=== PATIENT | male | born 1940 | race Hispanic/Latino ===

== ENCOUNTER 2019-07-04 12:27 | Inpatient (IN) | payer MEDICARE ==
[~2019-07-04] VITALS: Ht 172.7 cm; Wt 62.2 kg
[2019-07-04] MEDS ORDERED: SODIUM CHLORIDE 0.9% 1000ML 1,000 ML IV STA (12:29)
--- OUTSIDE RECORDS SUMMARY | 2019-07-04 12:29 | XMS REPORT | Clinical Summary ---
Author Author [facility] Organization [facility] Address Unknown Phone Unavailable Care Team Providers Care Telescope Repairer Name Role Phone Venkatesh Chery MD PCP Allergies Comments Active Allergy Reactions Severity Noted Date Latex tape Latex, Natural Rubber Rash Low 04/01/2017 Medications End Date Status Medication Sig Dispensed Refills Start Date Active ascorbic acid, vitamin C, Take 1,000 mg 0 (vitamin C) 1000 MG by mouth tablet daily. Active zbyajlf-recqzqwtkvktc-ryr Take 1 tablet 0 feine (EXCEDRIN MIGRAINE) by mouth 250-250-65 mg per tablet every 6 (six) hours as needed for headaches. Active clonAZEPAM (KlonoPIN) 0.5 Take 0.5 mg 0 MG tablet by mouth 2 (two) times a day. Active CRANBERRY FRUIT EXTRACT Take by mouth 0 (CRANBERRY CONCENTRATE daily. ORAL) Active digestive enzymes tablet Take 2 0 tablets by mouth 2 (two) times a day with meals. Active gabapentin (NEURONTIN) Take 600 mg 0 600 mg tablet by mouth 2 (two) times a day. Active traMADol (ULTRAM) 50 mg Take 50 mg by 0 tablet mouth. 9 Active Problems Not on file Encounters Care Team Description Date Type Specialty Konstantin Argueta MD 03/03/2019 Hospital Radiology Encounter Konstantin Argueta MD Hiatal hernia without gangrene and obstruction (Primary Dx) 03/03/2019 Office Visit Cardiothoracic Surgery Adelaide Flynn MD 02/17/2019 Orders Only Cardiothoracic Surgery Amy Webb MA 08/17/2018 Telephone Cardiothoracic Surgery Christina Wu MA 08/16/2018 Telephone Cardiothoracic Surgery Lesley Zapien MA 08/12/2018 Telephone Cardiothoracic Surgery Konstantin Argueta MD Hiatal hernia without gangrene and obstruction (Primary Dx) 08/05/2018 Office Visit Cardiothoracic Surgery Konstantin Argueta MD Hiatal hernia 08/05/2018 Hospital Radiology Encounter Christina WuGHISLAINE 07/23/2018 Telephone Cardiothoracic Surgery after 07/03/2018 Social History Date Tobacco Use Types Packs/Day Years Used Quit: 1979 Former Smoker Cigarettes 0.2 15 Smokeless Tobacco: Never Used Drinks/Week oz/Week Comments Alcohol Use No Sex Assigned at Date Recorded Not on file Industry Job Start Date Occupation Not on file Not on file Not on file Travel End Travel History Travel Start No recent travel history available. Last Filed Vital Signs Reading Time Taken Comments Vital Sign 116/63 03/03/2019 2:17 PM CDT Blood Pressure 91 03/03/2019 2:17 PM CDT Pulse 36.6 C (97.8 F) 03/03/2019 2:17 PM CDT Temperature 17 03/03/2019 2:17 PM CDT Respiratory Rate 97% 03/03/2019 2:17 PM CDT Oxygen Saturation - - Inhaled Oxygen Concentration - - Weight 172.7 cm (5' 8") 03/03/2019 2:17 PM CDT Height - - Body Mass Index Plan of Treatment Health Maintenance Due Date Last Done Comments SHINGLES VACCINES (#1) 1990 65+ PNEUMOCOCCAL VACCINE 2005 (1 of 2 - PCV13) INFLUENZA VACCINE 06/09/2019 Implants Device Identifier Shelf Expiration Date Model / Serial / Lot Implanted Type Area Manufactur er 09/17/2017 [id number] / / [id number] Implant Injctbl Radiesse Voicegel Surgical Left: N/A GIAN 1cc - [id number] Implants; AESTHETICS Implanted: Qty: 1 on 04/15/2017 by [employer]and[employer]; Ben Salazar MD at [facility] Extenders; Surgical Wires 11/15/2019 [id number] / / [id number] Implant Injctbl Radiesse Voicegel Surgical Right: Vocal GIAN 1cc - [id number] Implants; Cord AESTHETICS Implanted: 03/03/2018 at [facility] [employer]; (Quantity not on file) Extenders; Surgical Wires Procedures Comments Procedure Name Priority Date/Time Associated Diagnosis CT CHEST EXTERNAL STUDY Routine 02/16/2019 12:50 PM CDT NM MYOCARDIAL PERFUSION Routine 01/25/2019 FL ESOPHAGRAM COMPLETE Routine 08/05/2018 Hiatal hernia 3:06 PM CDT after 07/03/2018 Results * CT Chest External Study (02/16/2019 12:50 PM CDT) Specimen Narrative Performed At This exam was not acquired at a [facility] facility and has not been [facility] interpreted by a [facility] Provider.The exam was imported into our imaging system for comparisons purposes. Performing Organization Address City/[facility] Phone Number [facility] [address] [place] [address] * Nm myocardial perfusion (01/25/2019) Narrative Performed At * FL Esophagram Complete (08/05/2018 3:06 PM CDT) Specimen Narrative Performed At EXAMINATION:FL ESOPHAGRAM COMPLETE [facility] CLINICAL HISTORY:K44.9 Diaphragmatic hernia without obstruction or gangrene, hiatal hernia COMPARISON:None. Fluoroscopy time: 0.5 minutes. 8 spot images acquired. FINDINGS: The patient swallowed barium without difficulty. Esophagus appears mildly dilated with diminished peristalsis. No stricture. There is a large sliding hiatal hernia. Greater than 50% the stomach is above the diaphragmatic hiatus. IMPRESSION: Large sliding hiatal hernia. Presbyesophagus. [facility]-[id number] Procedure Note [facility], Radiology Results Incoming - 08/05/2018 3:51 PM CDT EXAMINATION: FL ESOPHAGRAM COMPLETE CLINICAL HISTORY: K44.9 Diaphragmatic hernia without obstruction or gangrene, hiatal hernia COMPARISON: None. Fluoroscopy time: 0.5 minutes. 8 spot images acquired. FINDINGS: The patient swallowed barium without difficulty. Esophagus appears mildly dilated with diminished peristalsis. No stricture. There is a large sliding hiatal hernia. Greater than 50% the stomach is above the diaphragmatic hiatus. IMPRESSION: Large sliding hiatal hernia. Presbyesophagus. 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
[2019-07-04] MEDS ORDERED: ACETAMINOPHEN 1000 MG/100 ML IV ONE (13:00)
[2019-07-04] MEDS ORDERED: PIPER-TAZ 3.375 GM 50 ML IV ONE (13:00)
--- NOTE | 2019-07-04 13:23 | Diagnostic Imaging Report ---
Chest, 1 view, 07/04/2019. History: Fever. Comparison: None available. Findings: The cardiomediastinal silhouette and pulmonary vasculature are within normal limits for a portable exam. Left retrocardiac opacity is present with possible air-fluid level. Linear opacity is present in the right lung base with minimal blunting of the costophrenic sulcus. Surgical clips are seen in the right subclavian region. There are no acute osseous or soft tissue abnormalities. Impression: Left retrocardiac opacity with air-fluid level most likely represents hiatal hernia. Recommend [address] for confirmation. Signed by: Jeet Cuello on 07/04/2019 1:19 PM
[2019-07-04 13:27] LABS: BASOPHILS % 0.3 % (0.0-1.0); EOSINOPHILS # (AUTO) 0.1 (0.0-0.4); EOSINOPHILS % 0.5 % (0.0-6.0); HEMATOCRIT 28.6 % (38.2-49.6); LYMPHOCYTES # (AUTO) 1.2 (1.0-3.2); LYMPHOCYTES % 11.6 % (18.0-39.1); MEAN CORPUSCULAR HEMOGLOBIN 27.4 pg (28-32); MEAN CORPUSCULAR HGB CONC 31.5 g/dL (31-35); MEAN CORPUSCULAR VOLUME 87.2 fL (81-99); MONOCYTES # (AUTO) 0.8 (0.2-0.8); MONOCYTES % 7.3 % (4.4-11.3); NEUTROPHILS # (AUTO) 8.4 (2.1-6.9); NEUTROPHILS % 79.8 % (38.7-80.0); PLATELET COUNT 426 x10e3/uL (140-360); RED BLOOD COUNT 3.28 x10e6/uL (4.3-5.7); RED CELL DISTRIBUTION WIDTH 13.3 % (11.7-14.4)
--- NOTE | 2019-07-04 13:28 | NUR ---
PT URINE LEG BAG CHANGED TO OBTAIN UA PER [facility] [employer]
[2019-07-04] MEDS ORDERED: VANCOMYCIN 1GM/NS 250 ML 250 ML IV ONE (13:30)
[2019-07-04 13:38] LABS: INR 1.13
[2019-07-04 13:40] LABS: PARTIAL THROMBOPLASTIN TIME 43.8 seconds (23.8-35.5)
[2019-07-04] MEDS ORDERED: ACETAMINOPHEN 1000 MG/100 ML IV PRN (13:45)
[2019-07-04] MEDS ORDERED: GABAPENTIN300 MG PO (13:46)
[2019-07-04] MEDS ORDERED: ZINC SULFATE220 MG PO (13:46)
[2019-07-04] MEDS ORDERED: CLONAZEPAM0.5 MG PO (13:46)
[2019-07-04 13:47] LABS: ALBUMIN 2.4 g/dL (3.5-5.0); ALBUMIN/GLOBULIN RATIO 0.6 (0.8-2.0); ALKALINE PHOSPHATASE 79 IU/L (40-150); ANION GAP 11.8 mmol/L (8-16); BLOOD UREA NITROGEN 14 mg/dL (7-26); BUN/CREATININE RATIO 21 (6-25); CARBON DIOXIDE 27 mmol/L (22-29); CHLORIDE 94 mmol/L (98-107); CREATINE KINASE 37 IU/L (30-200); CREATININE, SERUM 0.68 mg/dL (0.72-1.25); EST GLOMERULAR FILTRATION RATE > 60 ML/MIN (60-); GLUCOSE 116 mg/dL (74-118); POTASSIUM 3.8 mmol/L (3.5-5.1); SODIUM 129 mmol/L (136-145)
[2019-07-04 13:54] LABS: ALANINE AMINOTRANSFERASE < 6 IU/L (0-55)
[2019-07-04 14:25] LABS: BILIRUBIN,URINE NEGATIVE (NEGATIVE); CLARITY,URINE SL CLOUDY (CLEAR); COLOR,URINE YELLOW (YELLOW); KETONES,URINE NEGATIVE (NEGATIVE); LEUKOCYTE ESTERASE ,URINE MODERATE (NEGATIVE); NITRITE,URINE POSITIVE (NEGATIVE); PROTEIN,URINE DIPSTICK NEGATIVE (NEGATIVE); URINE UROBILINOGEN 1 mg/dL (0.2 - 1)
[2019-07-04 14:40] LABS: AMORPHOUS SEDIMENT,URINE MODERATE (FEW); BACTERIA,URINE RARE /HPF; RBC,URINE 0-5 /HPF (0-5)
[2019-07-04] MEDS ORDERED: ONDANSETRON HCL INJ 2MG/ML 2ML 2 MG/ML VIAL IV PRN (15:00)
[2019-07-04] MEDS ORDERED: PIPER-TAZ 3.375 GM 50 ML IV SCH (15:00)
--- OUTSIDE RECORDS SUMMARY | 2019-07-04 15:02 | XMS REPORT | Clinical Summary ---
Author Author [facility] Organization [facility] Address Unknown Phone Unavailable Care Team Providers Care Fruit Loader Name Role Phone Venkatesh Chery MD PCP Allergies Comments Active Allergy Reactions Severity Noted Date Latex tape Latex, Natural Rubber Rash Low 04/01/2017 Medications End Date Status Medication Sig Dispensed Refills Start Date Active ascorbic acid, vitamin C, Take 1,000 mg 0 (vitamin C) 1000 MG by mouth tablet daily. Active eircxfv-pkykpwjnabeuj-icb Take 1 tablet 0 feine (EXCEDRIN MIGRAINE) [...] Lot Implanted Type Area Manufactur er 09/17/2017 [id number] / / [id number] Implant Injctbl Radiesse Voicegel Surgical Left: N/A GIAN 1cc - [id number] Implants; AESTHETICS Implanted: Qty: 1 on 04/15/2017 by [employer]; Ben Salazar MD at [facility] Extenders; Surgical Wires 11/15/2019 [id number] / / [id number] Implant Injctbl Radiesse Voicegel Surgical Right: Vocal GIAN 1cc - [id number] Implants; Cord AESTHETICS Implanted: 03/03/2018 at [facility] Exp[employer]ers; (Quantity not on file) Extenders; [...] This exam was not acquired at a [facility] facility and has not been [facility] interpreted by a [facility] Provider.The exam was imported into our imaging system for comparisons purposes. Performing Organization Address City/[facility] Phone Number [facility] [address] [place] [address] * Nm myocardial perfusion (01/25/2019) Narrative Performed At * FL Esophagram Complete (08/05/2018 3:06 PM CDT) Specimen Narrative Performed At EXAMINATION:FL ESOPHAGRAM COMPLETE [facility] CLINICAL H[facility]:K44.9 Diaphragmatic hernia without obstruction or gangrene, hiatal hernia COMPARISON:None. Fluoroscopy time: 0.5 minutes. 8 spot images acquired. FINDINGS: The patient swallowed barium without difficulty. Esophagus appears mildly dilated with diminished peristalsis. No stricture. There is a large sliding hiatal hernia. Greater than 50% the stomach is above the diaphragmatic hiatus. IMPRESSION: Large sliding hiatal hernia. Presbyesophagus. [facility]-[id number] Procedure Note [facility], Radiology Results Incoming - 08/05/2018 3:51 PM [...] hiatus. IMPRESSION: Large sliding hiatal hernia. Presbyesophagus. 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
--- OUTSIDE RECORDS SUMMARY | 2019-07-04 15:02 | XMS REPORT ---
[facility] Address Unknown Phone Unavailable Care Team Providers Care Electrician Third Name Role Phone JULIA KO Unavailable Unavailable Problems This patient has no known problems. Allergies, Adverse Reactions, Alerts This patient has no known allergies or adverse reactions. Medications This patient has no known medications. 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 History: Fever. Comparison: None available. Findings: The cardiomediastinal silhouette and pulmonary vasculature are within normal limits for a portable exam. Left retrocardiac opacity is present with possible air-fluid level. Linear opacity is present in the right lung base with minimal blunting of the costophrenic sulcus. Surgical clips are seen in the right subclavian region. There are no acute osseous or soft tissue abnormalities. Impression: Left retrocardiac opacity with air-fluid level most likely represents hiatal hernia. Recommend [address] for confirmation. Signed by: Rock Cuello on 07/04/2019 1:19 PM Dictated By: ROCK CUELLO MD 18 Transcribed By: MARIE on 07/04/191318 COPY TO: VINH COSTA NP
[2019-07-04] MEDS: SODIUM CHLORIDE 0.9% 1000ML 1,000 ML IV SCH (16:06)
[2019-07-04 18:22] VITALS: BP 119/59
[2019-07-04 20:00] VITALS: BP 129/59
--- NOTE | 2019-07-04 20:15 | NUR ---
Patient received lying in bed. AAO x 4. Admission history obtained. Initial physical assessment performed. Patient had no complaints of pain. Respirations even and non-labored on 2L NC. Pale yellow urine draining from suprapubic catheter into leg bag. Right buttock pressure ulcer (stg 3) and sacral pressure ulcers (stg 2) noted. Patient oriented to room, call light and plan of care. Fall precautions implemented. Patient instructed to call for assistance when needed. Call light within reach.
[2019-07-04 21:00] VITALS: BP 129/59
[2019-07-04 21:20] LABS: CREATINE KINASE MB 1.2 ng/mL (0-5.0)
[2019-07-04] MEDS: PIPER-TAZ 3.375 GM 50 ML IV SCH (22:00)
--- NOTE | 2019-07-04 23:30 | NUR ---
IV on right arm infiltrated. Old IV removed with tip intact. New IV inserted in right hand 20G. Patient tolerated well.
[2019-07-05] VITALS (8 sets, daily range): BP systolic 118–140; BP diastolic 58–72
--- NOTE | 2019-07-05 02:47 | History and Physical ---
PRIMARY CARE DOCTOR: Dr. Venkatesh Chery. CHIEF COMPLAINT: Hyponatremia, fever, and sacral and buttock ulcer. HISTORY OF PRESENT ILLNESS: This is a 78-year-old male with past medical history of anxiety, aneurysm, paralysis of his bilateral lower extremities. He reported feeling chills, and fever of 102 last night, he took ibuprofen which improved his fever. He has indwelling suprapubic catheter due to paralysis. He denies any nausea, vomiting, change in bowel habits, chest pain, shortness of breath, or cough. He was admitted to the ER for hyponatremia and fever. PAST MEDICAL HISTORY: 1. Anxiety. 2. 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 PAST SURGICAL HISTORY: He had bilateral hernia repair, tonsillectomy, and aortic aneurysm repair. FAMILY MEDICAL HISTORY: Unknown. SOCIAL HISTORY: He denies any alcohol or drug use. He stopped smoking in . He lives at home with his and has home health, who comes for wound care twice a week. He is wheelchair-bound. REVIEW OF SYSTEMS: GENERAL: No acute distress. HEENT: Normal. No mouth sores. LUNGS: Shortness of breath. CARDIOVASCULAR: No chest pain. GI: No nausea, vomiting, or diarrhea. : Suprapubic Rinaldi catheter. MUSCULOSKELETAL: Bilateral lower extremity paralysis. PHYSICAL EXAMINATION: VITAL SIGNS: Temperature 98.4, pulse 103, BP 119/59, respirations 20, and SpO2 is 95%. GENERAL: He is alert, awake, and oriented x3. HEENT: Normocephalic. Moist mucous membranes. Dentures in place. CARDIOVASCULAR: Normal rhythm and rate with mild tachycardia. LUNGS: Decreased to auscultation. Aerating well. GI: Soft, nontender, not distended. MUSCULOSKELETAL: Paralysis of the bilateral lower extremities. SKIN: Has sacral and buttock ulcer, likely pressure ulcers due to his bedbound status. LABORATORY DATA: Sodium 129, potassium 3.8, creatinine 0.68. WBC 10.4, hemoglobin 9, hematocrit 28.6. Urine was positive for nitrites and wbc's and has moderate leukocytes. IMAGING STUDIES: Chest x-ray insignificant. IMPRESSION: 1. Hyponatremia with sodium of 129. 2. Sepsis due to urinary tract infection. Fever, tachycardia, and urinary tract infection noted on UA. 3. Anemia. Hemoglobin is 9.0, likely due to chronic disease. 4. Anxiety. 5. Aortic aneurysm. PLAN: We will continue to give IV fluid hydration with NS. Continue Zosyn, but urine may be colonized as he has suprapubic chronic catheter use. We will await on blood and urine culture results, and we will consult Wound Care for the wound. We will resume his home medications and repeat labs in the morning. Dictated by JAREK Zambrano Chrissy Downey MD MY/MODL /[id number]
[2019-07-05] MEDS: SODIUM CHLORIDE 0.9% 1000ML 1,000 ML IV SCH ×2 (04:12→10:25)
[2019-07-05 05:06] LABS: BASOPHILS # (AUTO) 0.1 (0.0-0.1); BASOPHILS % 0.6 % (0.0-1.0); EOSINOPHILS # (AUTO) 0.3 (0.0-0.4); EOSINOPHILS % 3.1 % (0.0-6.0); HEMATOCRIT 24.3 % (38.2-49.6); HEMOGLOBIN 7.9 g/dL (14.0-18.0); LYMPHOCYTES # (AUTO) 1.5 (1.0-3.2); LYMPHOCYTES % 19.1 % (18.0-39.1); MEAN CORPUSCULAR HEMOGLOBIN 28.1 pg (28-32); MEAN CORPUSCULAR HGB CONC 32.5 g/dL (31-35); MEAN CORPUSCULAR VOLUME 86.5 fL (81-99); MONOCYTES # (AUTO) 0.7 (0.2-0.8); NEUTROPHILS # (AUTO) 5.4 (2.1-6.9); NEUTROPHILS % 67.7 % (38.7-80.0); PLATELET COUNT 376 x10e3/uL (140-360); RED BLOOD COUNT 2.81 x10e6/uL (4.3-5.7); RED CELL DISTRIBUTION WIDTH 13.5 % (11.7-14.4)
--- NOTE | 2019-07-05 05:14 | Diagnostic Imaging Report ---
Examination: Single AP view of the chest. COMPARISON: 07/04/2019 INDICATION: Fever DISCUSSION: The lungs are well-inflated. Persistent retrocardiac opacity with air-fluid level in blunting of the lateral costophrenic sulcus may reflect pleural thickening or a small effusion. No new consolidation. Right hemithorax is grossly clear. Stable cardiomediastinal contour with tortuosity and atherosclerotic calcification of the thoracic aorta, resulting in rightward tracheal deviation at the level of the sternal notch. No acute osseous abnormality. IMPRESSION: Stable chest relative to 07/04/2019. Retrocardiac opacity likely represents a hiatal hernia as previously discussed. No new consolidations. Signed by: Dr. Shay Wen M.D. on 07/05/2019 5:11 AM
[2019-07-05 05:37] LABS: BLOOD UREA NITROGEN 13 mg/dL (7-26); BUN/CREATININE RATIO 19 (6-25); CALCIUM 8.6 mg/dL (8.4-10.2); CARBON DIOXIDE 24 mmol/L (22-29); CHLORIDE 102 mmol/L (98-107); CREATININE, SERUM 0.68 mg/dL (0.72-1.25); EST GLOMERULAR FILTRATION RATE > 60 ML/MIN (60-); GLUCOSE 89 mg/dL (74-118); PHOSPHORUS 3.1 MG/DL (2.3-4.7); SODIUM 133 mmol/L (136-145)
[2019-07-05 06:03] LABS: CREATINE KINASE MB 0.9 ng/mL (0-5.0)
[2019-07-05] MEDS: PIPER-TAZ 3.375 GM 50 ML IV SCH ×3 (06:30→21:40)
--- NOTE | 2019-07-05 06:44 | NUR ---
Shift report given to oncoming nurse regarding patient's status.
[2019-07-05] MEDS: CLONAZEPAM 0.5 MG TAB PO SCH ×2 (09:54→17:43)
[2019-07-05] MEDS: GABAPENTIN 300 MG CAP PO SCH ×2 (09:54→17:43)
[2019-07-05] MEDS: ZINC SULFATE 220 MG CAP PO SCH (09:54)
--- NOTE | 2019-07-05 12:15 | NUR ---
Afsaneh with wound care here to see the patient. Wound care instructions given and cultures taken of right buttock unstageable wound.
--- NOTE | 2019-07-05 12:21 | NUR ---
WOUND CARE CONSULTATION: THIS IS A 78 YEAR OLD MALE PATIENT ADMITTED TO [facility] FOR HYPONATREMIA, FEVER, ULCERS TO SACRAL AND BUTTOCKS. PATIENT HAS A HISTORY OF PARALYSIS OF HIS BILATERAL LOWER EXTREMITIES. PATIENT HAS AN INDWELLING SUPRAPUBIC CATHETER IN PLACE DUE TO PARALYSIS. HEAD TO TOE SKIN ASSESSMENT PERFORMED. PATIENT HAS A STAGE 2 PRESSURE ULCER TO THE SACRUM MEASURING 3.2X1X0.2, 100% PINK GRANULATION TO WOUND BED. PATIENT HAS A RIGHT BUTTOCK UNSTAGEABLE PRESSURE ULCER MEASURING 1.6X3.4X4CM, 100% SLOUGH TO WOUND BED, MODERATE PURULENT DRAINAGE NOTED, AND SLIGHTLY MALODOROUS, CULTURE OBTAINED AND SENT TO LAB. PATIENT HAS A LEFT BUTTOCKS STAGE 2 PRESSURE ULCER MEASURING 1.3X2.5X0.1CM, 80% SLOUGH AND 20% PINK GRANULATION NOTED TO WOUND BED. PATIENT LIVES AT HOME WITH HIS AND HE RECEIVES WOUND CARE AT [facility]. PATIENT IS WHEELCHAIR BOUND AND HAS A CUSHION FOR HIS WHEEL CHAIR, A WAFFLE MATTRESS AT HOME AND AN AIR MATTRESS AT HOME. PATIENT'S ULCERS ARE CHRONIC AND ACCORDING TO PATIENT AND FAMILY, THE PA THAT FOLLOWS PATIENT AT [facility] DOES NOT RECOMMEND SURGICAL DEBRIDEMENT AT THIS TIME DUE TO PURULENT DRAINAGE AND LIKELIHOOD OF CURRENT INFECTION. LABS: WBC8.02 ALB2.4 GLUCOSE 116 URINE CULTURE = PENDING BLOOD CULTURE = PENDING WOUND CULTURE = PENDING MEDICATIONS: ZOSYN RECOMMENDATION: -CONTINUE ALTERNATING PRESSURE RELIEF MATTRESS. -CONTINUE BILATERAL HEEL PROTECTORS WITH PILLOW SUSPENSION. -TURN EVERY 2 HOURS AND PRN. -NURSING TO CLEAN STAGE 2 PRESSURE ULCER TO SACRUM WITH NORMAL SALINE, PAT DRY, APPLY FIBRACOL TO FIT SIZE OF WOUND BED, APPLY VENELEX TO PERIWOUND, 4X4 NORMAL SALINE MOISTENED GAUZE, THEN COVER WITH ALLEVYN FOAM DRESSING; CHANGE DAILY AND PRN. -NURSING TO CLEAN RIGHT BUTTOCKS UNSTAGEABLE PRESSURE ULCER WITH NORMAL SALINE, PAT DRY, PACK DEPTH WITH AMD KERLIX, APPLY SANTYL TO AREA OF SLOUGH ON WOUND BED, THEN COVER WITH NORMAL SALINE MOISTENED GAUZE, COVER WITH ALLEVYN FOAM DRESSING; CHANGE DAILY AND PRN. -NURSING TO CLEAN LEFT BUTTOCK UNSTAGEABLE PRESSURE ULCER WITH NORMAL SALINE, PAT DRY, APPLY SANTYL TO WOUND BED AND COVER WITH NORMAL SALINE MOISTENED GAUZE, THEN ALLEVYN FOAM DRESSING; CHANGE DAILY AND PRN. THANK YOU FOR THIS WOUND CARE CONSULT. Addendum: 07/05/19 at 1244 by Afsaneh Markham RN Amended: Links added.
[2019-07-05] MEDS ORDERED: COLLAGENASE 5 GM TUBE TOP PRN (13:30)
[2019-07-05] MEDS ORDERED: BALSAM PERU/CASTOR OIL 60 GM OINT...G. TP PRN (13:30)
[2019-07-05 15:00] LABS: CREATINE KINASE MB 1.2 ng/mL (0-5.0)
--- NOTE | 2019-07-05 15:10 | NUR ---
Visit made by the Spiritual Care Department Pastoral Visitor, Shira Verma. Pt sleeping soundly. Pastoral Visitor left a card describing availability of rubber and plastics worker and instructions on how to contact a rubber and plastics worker. BURTON GARCIA Service Order Taker Spiritual Care Department O: [phone] Pager: [phone] ([phone] number calling from)
--- NOTE | 2019-07-05 15:22 | NUR ---
Nutrition Intervention Note RD Recommendation(s) for Physician: The patient meets criteria for MODERATE protein-calorie malnutrition. -Rec regular diet as medically appropriate (pt and family denied hx of diabetes) -Rec Ensure Enlive TID -Rec MVi w/minerals, vitamin C, and zinc sulfate to support wound healing Plan of Care: RD following, monitoring for tolerance and adequacy, ONS rec Nutrition reason for involvement: Nutrition risk trigger MST RD Assessment 07/05 78yo M, who was admitted from home for fever and chills. Pt with BLE paralysis. Visited pt in the room. Pt ate ~60% of lunch today. Pt stated I usually eat smaller meals at home because of my hernia. reported pt eating less than usual for the last few months due to discomfort from hernia. thinks pt has lost some weight with reported UBW ~140lbs. Pt denied any nausea or vomiting. LBM 06/30, on bowel regimen at home. Pt denied any chewing or swallowing difficulty. Pt usually drinks 1 Ensure at home. Discussed the importance of adequate calories and high protein diet for wound healing; and pt were agreeable. Will continue to monitor and follow. Principal Problems/Diagnoses: hyponatremia, fever, ulcers to sacral and buttocks PMH: Anxiety, Aortic aneurysm with bilateral lower extremity paralysis GI: abdomen soft, non-tender Skin: stage II pressure ulcer to scrum, R buttock unstageable pressure ulcer, and L buttock stage II pressure ulcer Labs: (07/05) Na 133 L, creatinine 0.68 Meds: NaCl, zinc sulfate Ht: 68in Wt: 135lb BMI: n/a IBW: 139 146lb (due to paralysis of BLE) Malnutrition Evaluation (07/05/2019) The patient meets criteria for MODERATE protein-calorie malnutrition. Energy intake: <75% of estimated energy requirements for >3 months Weight loss: 5lbs weight loss in the last 6 months, not meeting criteria Fat loss: Moderate hollow look around orbital region Muscle loss: Moderate clavicle protrusion, temporal depression Supporting Evidence: Fluid accumulation: None Functional Status: no changes Nutrition Prescription (Diet Order): ADA 1800 Estimated Nutritional Needs: Calories: 1500 1755kcal(23-27kcal/kg/d) Weight used: CBW Protein: 98 130g(1.5-2.0g/kg/d) Weight used: CBW Diet Adequacy: Not meeting calorie needs, Not meeting protein needs Diet Education Needs Assessment: Diet education not indicated. Nutrition Care Level: mod Nutrition Diagnosis: Increased protein needs related to altered skin integrity as evidenced by stage II pressure ulcer to scrum, R buttock unstageable pressure ulcer, and L buttock stage II pressure ulcer. Goal: Patient will meet 75-100% of estimated needs by follow up Progress: Progressing Interventions: General healthful diet, Commercial beverage, Multivitamin/mineral supplement therapy Monitoring/Evaluation: Total energy intake, Total protein intake, Modified diet, Liquid supplement, Weight change Signed: Enma Teran, MS, RD, LD
--- NOTE | 2019-07-05 17:45 | Progress Note ---
DATE: 07/05/2019 CHIEF COMPLAINT: Fever, hyponatremia, and sacral and buttocks ulcers. REVIEW OF SYSTEMS: GENERAL: No acute distress. HEENT: No mouth ulcers. LUNGS: No shortness of breath or cough. ABDOMEN: No nausea or vomiting, but has poor appetite. CARDIOVASCULAR: No chest pain or palpitations. NEUROLOGY: Alert and oriented. MUSCULOSKELETAL: Paralysis in bilateral lower extremities. SKIN: Multiple ulcers. MEDICATIONS: He is on Zosyn, normal saline, IV fluid, clonazepam, gabapentin, and zinc sulphate. Jan. PHYSICAL EXAMINATION: VITAL SIGNS: Temperature 98.9, pulse 76, blood pressure 126/61, respirations 19, and O2 saturations are 98%. GENERAL: Alert, awake, and oriented x3. NECK: Supple. LUNGS: Clear to auscultation. No acute distress. CARDIOVASCULAR: Rhythm and rate are normal. HEENT: Has dentures. No mouth sores. ABDOMEN: Soft, nontender, nondistended. NEUROLOGY: Alert, awake, and oriented x3. SKIN: Multiple unstageable sacral and buttock ulcers. LABORATORY DATA: Please see lab results. Sodium is improved to 133. Hemoglobin is 7.9. IMPRESSION: 1. Hyponatremia. 2. Multiple sacral and buttocks ulcers. 3. Urinary tract infection. 4. Anemia of chronic disease. 5. Paraplegia. 6. Anxiety. PLAN: We will order CT of the abdomen and pelvis to check for any abdominal infections. We will continue IV antibiotics and await wound and urine cultures. Blood culture has been negative so far. Dr. Longoria has been consulted for wound care and possible debridement or wound VAC. Hemoglobin is noted to be 7.9 today. We will continue to monitor. No signs of bleeding noted. Plan transfusion if hemoglobin is less than 7. Dictated by JAREK Zambrano Chrissy Downey MD MY/MODL /[id number]
--- NOTE | 2019-07-05 18:21 | Diagnostic Imaging Report ---
EXAM: CT Abdomen and Pelvis WITH contrast INDICATION: Fever. Hyponatremia. COMPARISON: None. TECHNIQUE: Abdomen and pelvis were scanned utilizing a multidetector helical scanner from the lung base to the pubic symphysis after administration of IV contrast. Coronal and sagittal reformations were obtained. Routine protocol was performed. Scan was performed when during portal venous phase. IV CONTRAST: 100 mL of Isovue-370 ORAL CONTRAST: Water RADIATION DOSE: Total DLP: 273.63 mGy*cm Estimated effective dose: (DLP x 0.015 x size factor) mSv. Dose modulation, iterative reconstruction and weight base adjustment of the MA/KV was utilized to reduce the patient dose to as low as reasonably achievable COMPLICATIONS: None FINDINGS: LINES and TUBES: Anterior lower abdominal wall catheter with tip/balloon in the urinary bladder. Inferior vena cava filter LOWER THORAX: Left greater than right pleural effusion with associated atelectasis HEPATOBILIARY: Simple appearing cyst near the dome of the liver. No biliary ductal dilation. GALLBLADDER: No radio-opaque stones or sludge. No wall thickening. SPLEEN: No splenomegaly. PANCREAS: No focal masses or ductal dilatation. ADRENALS: No adrenal nodules KIDNEYS/URETERS: Kidneys enhance symmetrically. No hydronephrosis. Simple appearing cysts in the kidneys. No stones. GI TRACT: No abnormal distention, wall thickening, or evidence of bowel obstruction. Hiatal hernia. Large amount of retained feces in the colon likely due to constipation PELVIC ORGANS/BLADDER: Unremarkable. LYMPH NODES: No lymphadenopathy. VESSELS: Tortuous aorta with scattered vascular calcification and mural plaque most pronounced in the left iliac artery PERITONEUM / RETROPERITONEUM: Small amount of ascites. No free air is seen BONES: Scattered degenerative change. Chronic appearing deformity of the hips and proximal femurs. SOFT TISSUES: Soft tissue thickening adjacent to the posterior left hip could be due to cellulitis in the appropriate clinical context. Questionable erosive change in the adjacent bone best seen on axial image 84 series 2. Diffuse muscle atrophy. IMPRESSION: Left greater than right pleural effusion with associated atelectasis Soft tissue thickening adjacent to the posterior left hip could be due to cellulitis in the appropriate clinical context. Questionable erosive change in the adjacent bone best seen on axial image 84 series 2. MRI of the left hip may be of benefit if there is clinical suspicion in this region. Large amount of retained feces in the colon likely due to constipation Signed by: Dr. Frantz Tong M.D. on 07/05/2019 6:18 PM
--- NOTE | 2019-07-05 19:20 | NUR ---
Patient received lying in bed. AAO x 4. No acute distress noted. Call light within reach.
[2019-07-05] MEDS ORDERED: SODIUM CHLORIDE 0.9% 50ML 50 ML ONE (21:01)
[2019-07-05] MEDS ORDERED: IOPAMIDOL 370 MG/ML 200 ML INFUS..BTL INJ ONE (21:01)
[2019-07-06] VITALS (8 sets, daily range): BP systolic 107–146; BP diastolic 51–65
--- NOTE | 2019-07-06 02:29 | NUR ---
Dressing to suprapubic catheter changed. Patient re-positioned.
[2019-07-06 05:08] LABS: BASOPHILS % 0.5 % (0.0-1.0); EOSINOPHILS # (AUTO) 0.3 (0.0-0.4); HEMATOCRIT 25.7 % (38.2-49.6); HEMOGLOBIN 8.1 g/dL (14.0-18.0); LYMPHOCYTES # (AUTO) 1.4 (1.0-3.2); LYMPHOCYTES % 17.2 % (18.0-39.1); MEAN CORPUSCULAR HEMOGLOBIN 27.7 pg (28-32); MEAN CORPUSCULAR HGB CONC 31.5 g/dL (31-35); MONOCYTES # (AUTO) 0.7 (0.2-0.8); NEUTROPHILS # (AUTO) 5.8 (2.1-6.9); NEUTROPHILS % 69.8 % (38.7-80.0); PLATELET COUNT 397 x10e3/uL (140-360); RED BLOOD COUNT 2.92 x10e6/uL (4.3-5.7); RED CELL DISTRIBUTION WIDTH 13.4 % (11.7-14.4)
[2019-07-06] MEDS: PIPER-TAZ 3.375 GM 50 ML IV SCH ×3 (06:06→21:56)
--- NOTE | 2019-07-06 06:14 | NUR ---
Patient complained of pain to his left shoulder . Carroll Santiago (NESTOR) notified. New order received for Tylenol #3 PO Q6 PRN.
[2019-07-06] MEDS: ACETAMINOPHEN/CODEINE 300MG - 30MG TAB PO PRN (06:33)
--- NOTE | 2019-07-06 07:00 | NUR ---
Walking rounds done. Patient resting comfortably. Shift report given to oncoming nurse.
--- NOTE | 2019-07-06 07:00 | NUR ---
BEDSIDE SHIFT REPORT RECEIVED FROM CONCRETE FINISHING MACHINE OPERATOR RN. PT FAMILY AT BEDSIDE. PT DENIES NEEDS AT THIS TIME.
[2019-07-06] MEDS ORDERED: SODIUM HYPOCHLORITE 0.25% 480 ML SOLN IR ONE (08:30)
[2019-07-06] MEDS: CLONAZEPAM 0.5 MG TAB PO SCH ×2 (08:42→17:48)
[2019-07-06] MEDS: GABAPENTIN 300 MG CAP PO SCH ×2 (08:42→17:48)
[2019-07-06] MEDS: ZINC SULFATE 220 MG CAP PO SCH (08:43)
[2019-07-06] MEDS: COLLAGENASE 5 GM TUBE TOP SCH (09:30)
[2019-07-06] MEDS: BALSAM PERU/CASTOR OIL 60 GM OINT...G. TP SCH (09:30)
[2019-07-06] MEDS ORDERED: ONDANSETRON HCL 4 MG ORAL DISINTEGRATING TAB PO PRN (11:00)
--- NOTE | 2019-07-06 11:16 | NUR ---
EDUCATED ABOUT IMM, SIGNED, FILED IN CHART, WITH COPY LEFT WITH FAMILY AT BEDSIDE.
--- NOTE | 2019-07-06 11:25 | Consultation ---
DATE OF CONSULTATION: 07/06/2019 Wound Consultation HISTORY OF PRESENT ILLNESS: A 78-year-old male patient, chronically wheelchair-bound, admitted with multiple ulcers. Wound consult was called. The patient is a former smoker, stopped in the , held aortic aneurysm rupture, had surgery in 2007, has suprapubic catheter, chronic weakness, bilateral lower extremities, has a wound for several months. He thinks it is from April, however, it looks longer than that. He has right ischial pressure ulcer and deep for 6 to 7 cm tunneling around the right ischiopubic bone, which is palpable, not exposed coccyx area. Patient has stage III pressure ulcer, measures 0.5 x 1.5 x 0.2 cm and left ischium, patient has a DTI with a stage III wound. PAST MEDICAL HISTORY: Aortic aneurysm, bilateral lower extremity weakness. PERSONAL HISTORY: Former smoker. MEDICATIONS: 1. Gabapentin 600 mg b.i.d. 2. Clonazepam 0.5 mg b.i.d. 3. Zosyn. PHYSICAL EXAMINATION: VITAL SIGNS: Blood pressure 118/70, pulse of 82. HEENT: Normal. NECK: No JVD. LUNGS: Clear. CVS: Normal. ABDOMEN: Soft. Suprapubic catheter in place. EXTREMITIES: Lower extremities, no edema. The patient has no movement to the lower extremities, bed-bound, incontinent. SKIN: Right ischium, patient has a wound measures 3 x 3 cm with a depth of 3 cm, tunneling of 6 cm right ischial bone palpable. Moderate serosanguineous drainage present, sacrococcygeal area is a small wound stage III. The left ischium has a DTI with a stage III pressure ulcer. ASSESSMENT: Right ischial pressure ulcer stage IV, suspect osteomyelitis, coccyx stage III pressure ulcer clean, left ischium deep tissue injury with a stage III. PLAN: Pack the right ischial wound with a Dakin's moistened Kerlix gauze. Bone scan, antibiotics for osteo most likely. Thank you for consultation. We will follow up. MD DOUGIE Aguero/SHIVAM /[id number]
--- NOTE | 2019-07-06 12:06 | NUR ---
CALLED AND STATES HOME [facility] IS [facility] [phone]
--- NOTE | 2019-07-06 13:00 | NUR ---
PT OFF UNIT FOR PROCEDURE.
--- NOTE | 2019-07-06 14:00 | NUR ---
PT BACK TO UNIT AFTER PROCEDURE. PT FAMILY AT BEDSIDE. PT DENIES NEEDS AT THIS TIME.
[2019-07-06] MEDS ORDERED: GADOBENATE DIMEGLUMINE 0 ML IV ONE (15:15)
--- NOTE | 2019-07-06 16:30 | NUR ---
PT OFF UNIT FOR PROCEDURE.
[2019-07-06] MEDS ORDERED: LACTULOSE SYRUP 20 GM/30 ML UDC PO NR (17:00)
--- NOTE | 2019-07-06 18:30 | NUR ---
PT FAMILY DOESN'T WANT ANY BLOOD TRANSFUSION IN CASE IF ANY NEED ARISES DUE TO THE RASTAFARIAN BELIEFS. INFORMED THE SAME TO BIJAL BAEZ. LETTER FROM FAMILY PLACED IN THE CHART.
--- NOTE | 2019-07-06 19:00 | NUR ---
BEDSIDE SHIFT REPORT GIVEN TO THE WIRE FRAME MAKER RN. PT DENIED FURTHER NEEDS.
--- NOTE | 2019-07-06 19:21 | Progress Note ---
DATE: 07/06/2019 CONSULTANTS: Dr. Pappas, Wound Care. CHIEF COMPLAINT: Hyponatremia, fever, UTI, and multiple sacrum and buttocks ulcer. MEDICATIONS: Please see medication MAR, medication list REVIEW OF SYSTEMS: GENERAL: Alert and oriented. HEENT: No mouth sores. NECK: Supple. LUNGS: No shortness of breath or cough. CARDIOVASCULAR: No chest pain or palpitations. ABDOMEN: No nausea or vomiting or diarrhea, however, he compliance of constipation. NEUROLOGY: Alert and oriented. MUSCULOSKELETAL: Paraplegic. SKIN: Multiple ulcers in buttocks and sacral area, likely stage III. PHYSICAL EXAMINATION: VITAL SIGNS: Temperature 97.7, pulse 56, blood pressure 107/51, respirations 17, and SPO2 is 93%. GENERAL: Alert, awake, and oriented x3. NECK: Supple. LUNGS: Clear to auscultation. CARDIOVASCULAR: Rate and rhythm are normal. ABDOMEN: Soft, nontender, nondistended. EXTREMITIES: Paraplegic, but he is able to move upper extremities well. NEUROLOGY: Alert, awake, and oriented x3. SKIN: Multiple ulcers on sacrum and buttocks area, stage III per wound care staging. LABORATORY DATA: Please see lab results. Sodium is improved to 133. Hemoglobin is 8.1. IMPRESSION: 1. Hyponatremia. 2. Multiple buttocks and sacral ulcers, questionable for osteomyelitis. 3. Urinary tract infection, urine culture growing gram negative rods. 4. Anemia, hemoglobin 8.1, chronic, we will monitor. 5. Paraplegia. 6. Anxiety. We will continue with current medications. PLAN: Wound care has been consulted due to the extend of his wound. There might be concern for osteomyelitis, unable to do an MRI because he has clips in his brain, so we will do a bone scan to rule out osteomyelitis. Urine culture is growing gram negative rods, we will continue with Zosyn. We will repeat labs in the a.m. CAT scan of the abdomen and pelvis showed soft tissue cellulitis at the buttocks and constipation. We will give lactulose x1 for constipation. We will await on bone scan results and continue IV antibiotics and await on results. Dictated by Dannielle Santiago, JAREK Chrissy Downey MD MY/MODL /[id number]
--- NOTE | 2019-07-06 19:48 | Diagnostic Imaging Report ---
Bone Scan, three-phase Reason for exam: Right ischial decubitus in bedridden patient; concern for osteomyelitis Radiopharmaceutical: Tc-99m MDP 27.5 mCi IV right hand Comparison: None Following intravenous administration of the radiopharmaceutical, dynamic flow and immediate blood pool images of the pelvis and hips followed by 3.5 delayed spot images were obtained. Flow and blood pool images show symmetric distribution of tracer activity to the pelvis and hips diffusely with focal increased tracer activity in the region of the right ischium. The delayed images show focal markedly increased tracer activity in the right inferior pubic ramus. Impression: Markedly osteoblastic process in the right inferior pubic ramus is very worrisome for osteomyelitis. Three-phase bone scan lacks specificity in the setting of complicated osteomyelitis; a labeled white blood cell study would add specificity to the evaluation if needed. Signed by: Dr. Sarah Chacko M.D. on 07/06/2019 7:45 PM
[2019-07-06] MEDS: VANCOMYCIN 1GM/NS 250 ML 250 ML IV SCH (20:31)
[2019-07-07] VITALS (9 sets, daily range): BP systolic 111–167; BP diastolic 54–72
[2019-07-07] MEDS: PIPER-TAZ 3.375 GM 50 ML IV SCH ×3 (05:29→22:18)
--- NOTE | 2019-07-07 07:00 | NUR ---
BEDSIDE SHIFT REPORT RECEIVED FROM THE PUBLIC HEALTH AIDE RN. PT DENIES NEEDS AT THIS TIME.
--- NOTE | 2019-07-07 07:13 | NUR ---
REPORT GIVEN AT BEDSIDE TO MARISA VASQUEZ.
[2019-07-07] MEDS: CLONAZEPAM 0.5 MG TAB PO SCH ×2 (08:22→16:47)
[2019-07-07] MEDS: GABAPENTIN 300 MG CAP PO SCH ×2 (08:23→16:47)
[2019-07-07] MEDS: ZINC SULFATE 220 MG CAP PO SCH (08:23)
[2019-07-07] MEDS: VANCOMYCIN 1GM/NS 250 ML 250 ML IV SCH ×2 (08:23→21:26)
--- NOTE | 2019-07-07 13:54 | NUR ---
DR. LIANG AT BEDSIDE. CHECK TROUGH LEVEL BEFORE THE 4TH DOSE AND HOLD VANCOMYCIN IF TROUGH LEVEL >15 PER THE
[2019-07-07] MEDS: SODIUM HYPOCHLORITE 0.25% 480 ML SOLN IR SCH (14:00)
[2019-07-07] MEDS: COLLAGENASE 5 GM TUBE TOP SCH (14:00)
[2019-07-07] MEDS: BALSAM PERU/CASTOR OIL 60 GM OINT...G. TP SCH (14:00)
--- NOTE | 2019-07-07 14:00 | NUR ---
LH UPPER ARM 20G IV REMOVED. TIP INTACT. NO BLEEDING NOTED.DRESSING APPLIED. PT FAMILY AT BEDSIDE. PT DENIED FURTHER NEEDS.
[2019-07-07] MEDS: LORATADINE/PSEUDOEPHEDRINE 24 HR SR TAB PO SCH (14:17)
[2019-07-07] MEDS ORDERED: PNEUMOCOCCAL VACCINE POLYVALENT 23 MCG/0.5 ML VIAL IM ONE (15:00)
--- NOTE | 2019-07-07 15:46 | Progress Note ---
DATE: 07/07/2019 CONSULTANTS: 1. Dr. Pappas for Wound Care. 2. Dr. Uvaldo Alvarez for Infectious Disease. CHIEF COMPLAINT: Hyponatremia, fever, with multiple buttock and sacral ulcers. SUBJECTIVE: Today, complaining of constipation. MEDICATIONS: Please see MAR. REVIEW OF SYSTEMS: Complaining of constipation and right sacral and buttock pressure ulcers. Other review of systems are all unremarkable. Paraplegia also noted. OBJECTIVE: VITAL SIGNS: Temperature is 98.8, pulse is 100, BP is 111/57, respirations 18, and SpO2 is 99%. LABORATORY DATA: Please see labs. IMAGING: Bone scan was done which showed suspicion for osteomyelitis. IMPRESSION: 1. Sepsis due to multiple ulcers with suspicion for osteomyelitis. 2. Urinary tract infection. Urine culture growing gram-negative rods, both bacteria are sensitive to Zosyn. 3. Chronic anemia. 4. Paraplegia. 5. Anxiety. 6. Constipation, chronic. PLAN: Vancomycin was added to his medications for possible osteomyelitis. We will continue with wound care. We will consult case management for LTAC placement for long-term IV antibiotics. We will consult Dr. Alvarez, infectious disease doctor to help with management of infection. Further recommendations to follow. Dictated by JAREK Zambrano Chrissy Downey MD MY/MODL /[id number]
--- NOTE | 2019-07-07 15:48 | NUR ---
Nutrition Follow-up Note RD Recommendation(s) for Physician: The patient meets criteria for MODERATE protein-calorie malnutrition. - Continue regular diet as ordered - Continue Ensure Enlive TID - Rec MVi w/minerals, vitamin C, and zinc sulfate to support wound healing Plan of Care: RD following, monitoring for tolerance and adequacy, ONS rec Nutrition reason for involvement: Follow up RD Assessment 07/07 - Visited pt in the room. Pt reported fair appetite. PCT recorded 50-75% meal intake. Pt denied any chewing or swallowing difficulty. Pt complained of constipation even after lactulose was given yesterday. MARISA Sandoval was aware. Pt has been drinking Ensure given. No other complains at this time. 07/05 78yo M, who was admitted from home for fever and chills. Pt with BLE paralysis. Visited pt in the room. Pt ate ~60% of lunch today. Pt stated I usually eat smaller meals at home because of my hernia. reported pt eating less than usual for the last few months due to discomfort from hernia. thinks pt has lost some weight with reported UBW ~140lbs. Pt denied any nausea or vomiting. LBM 06/30, on bowel regimen at home. Pt denied any chewing or swallowing difficulty. Pt usually drinks 1 Ensure at home. Discussed the importance of adequate calories and high protein diet for wound healing; and pt were agreeable. Will continue to monitor and follow. Principal Problems/Diagnoses: hyponatremia, fever, ulcers to sacral and buttocks PMH: Anxiety, Aortic aneurysm with bilateral lower extremity paralysis GI: abdomen non-tender Skin: stage II pressure ulcer to scrum, R buttock unstageable pressure ulcer, and L buttock stage II pressure ulcer Labs: No lab on 07/07 (07/05) Na 133 L, creatinine 0.68 Meds: vancomycin, zinc sulfate Ht: 68in Wt: 135lb BMI: n/a IBW: 139 146lb (due to paralysis of BLE) Malnutrition Evaluation (07/05/2019) The patient meets criteria for MODERATE protein-calorie malnutrition. Energy intake: <75% of estimated energy requirements for >3 months Weight loss: 5lbs weight loss in the last 6 months, not meeting criteria Fat loss: Moderate hollow look around orbital region Muscle loss: Moderate clavicle protrusion, temporal depression Supporting Evidence: Fluid accumulation: None Functional Status: no changes Nutrition Prescription (Diet Order): Regular diet w/ Ensure Enlive TID Estimated Nutritional Needs: Calories: 1500 1755kcal (23-27kcal/kg/d) Weight used: CBW Protein: 98 130g (1.5-2.0g/kg/d) Weight used: CBW Diet Adequacy: meeting calorie needs, meeting protein needs Diet Education Needs Assessment: Diet education not indicated. Nutrition Care Level: low Nutrition Diagnosis: Increased protein needs related to altered skin integrity as evidenced by stage II pressure ulcer to scrum, R buttock unstageable pressure ulcer, and L buttock stage II pressure ulcer. Goal: Patient will meet 75-100% of estimated needs by follow up Progress: Progressing Interventions: General healthful diet, Commercial beverage, Multivitamin/mineral supplement therapy Monitoring/Evaluation: Total energy intake, Total protein intake, Modified diet, Liquid supplement, Weight change Signed: Enma Teran MS, RD, LD
--- NOTE | 2019-07-07 18:52 | Consultation ---
DATE OF CONSULTATION: 07/07/2019 INFECTIOUS DISEASE CONSULT REASON FOR CONSULTATION: Cellulitis and possible osteomyelitis. Thank you, Dr. Downey, for asking me to see this patient, who was admitted through the emergency department. HISTORY OF PRESENT ILLNESS: The patient is a 78-year-old man referred for cellulitis and possible osteomyelitis. He presented to emergency department with increasing drainage and worsening right buttock ulcer. The patient is paraplegic and sits a lot in a wheelchair. About April 2019, he developed progressive ulcer of the right ischial area. Despite outpatient wound care and oral antibiotics as well as home health visit 3 times a week, the wound failed to respond to management. He also had sacral and left ischial wounds, which fared better. The patient denies fever and chills. Also, he did not notice any urinary changes. He has a suprapubic catheter, which is exchanged every 5 weeks. 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 PAST SURGICAL HISTORY: Craniotomy and cerebral arterial aneurysmal clipping, tonsillectomy, repair of ruptured thoracic aortic aneurysm, bilateral inguinal hernia repair and suprapubic catheter placement. ALLERGIES: ADHESIVE TAPE. MEDICATIONS: See MAR. The current antibiotics are Zosyn 3.375 g IV piggyback q.8 hours and vancomycin 1 g IV piggyback q.12 hours. IMMUNIZATION: The patient does not recall receiving pneumococcal or tetanus/diphtheria vaccine. FAMILY HISTORY: Noncontributory. SOCIAL HISTORY: He quit smoking cigarettes in the . No alcohol or recreational drug use. REVIEW OF SYSTEMS: As per history of present illness. PHYSICAL EXAMINATION: GENERAL: No acute distress. VITAL SIGNS: T-max 98.9, pulse rate 79, respiratory rate 18, blood pressure 115/54, and weight 135 pounds. HEENT: Normocephalic. There is no icterus or injection of conjunctivae. There is no ear or nasal discharge. Moist oral mucosa. No pharyngeal erythema or exudate. NECK: Supple. No meningismus. LUNGS: Good air entry bilaterally. HEART: Normal S1 and S2. Regular. ABDOMEN: Soft and nontender. Suprapubic catheter exit site is clean. EXTREMITIES: There is a tunneling ulcer of the right ischial area. There is almost completely healed stage II ulcer of the sacrum and left ischial area. There is edema of the left upper extremity with peripheral IV in place. SKIN: No rash. RESIDENT PHYSICIAN IN RADIOLOGY: Awake, alert, and oriented to person, place, and time. Paraplegic. LABORATORY AND DIAGNOSTICS: WBC 8240, hemoglobin 8.1, platelet 397,000, neutrophils 69.8, lymphocytes 17.2, monocytes 8, eosinophils 4, and basophils 0.5. 07/05/2019 BUN 13, creatinine 0.68. Wound culture is growing Staphylococcus aureus with sensitivity pending. Urine culture collected for yet unknown indication grew Morganella morganii and Pseudomonas aeruginosa. IMPRESSION: 1. ? Contiguous osteomyelitis of the right ischium, present on admission. 2. Nonhealing ulcer of the right buttock with possible cellulitis, present on admission. 3. Hiatal hernia. 4. Paraplegia secondary to ruptured aortic aneurysm, present on admission. PLAN: 1. Check C-reactive protein and vancomycin level. 2. Wound care input noted. 3. Continue antibiotics. The patient should be given pneumococcal vaccination. MD JOSÉ Joseph/SHIVAM /[id number] BOB
--- NOTE | 2019-07-07 19:00 | NUR ---
BEDSIDE SHIFT REPORT GIVEN TO THE FARM GENERAL MANAGER RN. PT DENIED FURTHER NEEDS.
--- NOTE | 2019-07-07 19:45 | NUR ---
RECEIVED PT IN BED AOX3 .RESPIRATIONS ARE EVEN AND UNLABORED .SACRUM STAGE 2,BILATERAL BUTTOCK STAGE 3.PT REQUESTES SUPPOSITORY AT 2100.PT DID NOT HAVE THE BM FOR A WEEK .DENIES PAIN.CALL LIGHT WITH IN REACH .CONTINUE TO MONITOR
[2019-07-07] MEDS: BISACODYL 10 MG SUPP PR PRN (21:30)
--- NOTE | 2019-07-07 22:59 | NUR ---
APPLIED SUPPOSITORY AT 2100 AND WAITING FOR THE BM
[2019-07-08] VITALS (7 sets, daily range): BP systolic 104–169; BP diastolic 51–68
[2019-07-08] MEDS: ACETAMINOPHEN/CODEINE 300MG - 30MG TAB PO PRN (03:49)
--- NOTE | 2019-07-08 05:49 | NUR ---
PT C/O PAIN AND GIVEN TYLENOL#3.GIVEN DUCOLAX SUPPOSITORY AND PRONE JUICE .CONTINUE TO MONITOR /CALL LIGHT WITH IN REACH
[2019-07-08] MEDS: PIPER-TAZ 3.375 GM 50 ML IV SCH ×3 (06:00→22:24)
--- NOTE | 2019-07-08 07:08 | NUR ---
BEDSIDE REPORT GIVEN TO THE ONCOMING NURSE
[2019-07-08] MEDS: VANCOMYCIN 1GM/NS 250 ML 250 ML IV SCH ×2 (09:00→21:00)
--- NOTE | 2019-07-08 09:09 | NUR ---
Patient alert and responsive, in bed and no resp distress, repositioned as ordered, urine draining to cedillo. Vanco trough elevated at 24.4 and will hold Vancomycin this morning
[2019-07-08] MEDS: GABAPENTIN 300 MG CAP PO SCH ×2 (09:30→17:42)
[2019-07-08] MEDS: ZINC SULFATE 220 MG CAP PO SCH (09:30)
[2019-07-08] MEDS: CLONAZEPAM 0.5 MG TAB PO SCH ×2 (09:30→17:42)
[2019-07-08] MEDS: LORATADINE/PSEUDOEPHEDRINE 24 HR SR TAB PO SCH (09:30)
--- NOTE | 2019-07-08 14:15 | NUR ---
Call to GI for orders regarding tube feed and no call back yet. Patient alert and responsive, rounds by ASSOCIATE PROFESSOR OF AUTOMATION for attending and will monitor.
--- NOTE | 2019-07-08 14:30 | NUR ---
Patient signed consent for PICC line, radiology notified
[2019-07-08] MEDS: BISACODYL 10 MG SUPP PR PRN (14:36)
--- NOTE | 2019-07-08 15:49 | NUR ---
ORDERS FOR LTAC EVAL LT[facility] IN NETWORK WITH [facility] PER [facility] EXPLAINED TO PT AND THEY AGREE AND SIGNED CHOICE LETTER FOR [facility] NOTIFIED TO EVAL PT MOT INITIATED AND PLACED IN PACKET AT DESK
--- NOTE | 2019-07-08 16:29 | Progress Note ---
DATE: 07/08/2019 CONSULTING PHYSICIANS: 1. Kenneth Pappas M.D., Wound Care. 2. Uvaldo Alvarez M.D., Infectious Disease. CHIEF COMPLAINT: Feeling better and constipation. REVIEW OF SYSTEMS: GENERAL: Alert, awake, and oriented. HEENT: No mouth sores. LUNGS: No shortness of breath or cough. HEART: No chest pain or palpitations. ABDOMEN: Soft, but still with constipation. NEUROLOGIC: Alert and awake. PHYSICAL EXAMINATION: VITAL SIGNS: Temperature is 97.5, pulse is 75, BP is 105/51, respirations 18, and SpO2 is 96. MEDICATIONS: See medication list. LABORATORY DATA: Please see labs noted. IMPRESSION: 1. Sepsis due to multiple wounds and possible osteomyelitis. 2. Urinary tract infection with Pseudomonas and Escherichia coli. 3. Chronic anemia. 4. Paraplegia. 5. Anxiety. 6. Constipation. PLAN: Blood culture has been negative so far, noted wound culture and UTI culture results. Continue with Zosyn and vancomycin per ID recommendations. has been consulted for LTAC for IV antibiotics. [facility] Dictated by JAREK Zambrano Chrissy Downey MD MY/MODL /[id number]
--- NOTE | 2019-07-08 16:38 | NUR ---
ID aware of vanco trough this morning, hold Vancomycin and recheck level for tomorrow morning.
[2019-07-08] MEDS: BALSAM PERU/CASTOR OIL 60 GM OINT...G. TP SCH (17:42)
[2019-07-08] MEDS: SODIUM HYPOCHLORITE 0.25% 480 ML SOLN IR SCH (17:42)
[2019-07-08] MEDS: COLLAGENASE 5 GM TUBE TOP SCH (17:42)
[2019-07-08] MEDS ORDERED: SOD PHOSPHATE/SOD BIPHOSPHATE ENEMA 132 ML BTL PR ONE (18:45)
--- NOTE | 2019-07-08 18:53 | NUR ---
Picc line not placed yet, call to radiology and they state Picc services have been called but they are not here yet. Administered Enema at this time due to patient not able to eat usual dinner and abd distended. Will monitor.
--- NOTE | 2019-07-08 19:25 | NUR ---
Patient received lying in bed. AAO x 4. No complaints of pain. Respirations even and non-labored on 2L NC. Suprapubic catheter draining pale clear yellow urine. Bed locked and in lowest position. Bed rails up x 2. Call light within reach.
--- NOTE | 2019-07-08 21:30 | NUR ---
PICC line placement to right upper arm completed.
--- NOTE | 2019-07-08 22:15 | Diagnostic Imaging Report ---
Examination: Single AP view of the chest. COMPARISON: 07/05/2019 INDICATION: PICC placement DISCUSSION: Interval placement of a right upper extremity PICC. The tip terminates over the expected region of the low superior vena cava. Lungs remain well-inflated. Stable blunting of the right lateral costal sulcus likely a small effusion. Retrocardiac opacity with air-fluid level compatible with hiatal hernia. Patchy airspace disease in the left lung base likely passive atelectasis. Stable cardiomediastinal contour with tortuosity and probable ectasia of the thoracic aorta. IMPRESSION: Interval placement of a right upper extremity PICC, which terminates over the low superior vena cava. Otherwise stable chest relative to 07/05/2019. Signed by: Dr. Shay Wen M.D. on 07/08/2019 10:12 PM
[2019-07-09] VITALS (8 sets, daily range): BP systolic 102–153; BP diastolic 47–63
[2019-07-09 05:25] LABS: BASOPHILS % 0.6 % (0.0-1.0); EOSINOPHILS # (AUTO) 0.4 (0.0-0.4); HEMATOCRIT 27.9 % (38.2-49.6); HEMOGLOBIN 8.7 g/dL (14.0-18.0); LYMPHOCYTES # (AUTO) 1.3 (1.0-3.2); MEAN CORPUSCULAR HEMOGLOBIN 27.2 pg (28-32); MEAN CORPUSCULAR HGB CONC 31.2 g/dL (31-35); MEAN CORPUSCULAR VOLUME 87.2 fL (81-99); MONOCYTES # (AUTO) 0.5 (0.2-0.8); MONOCYTES % 7.9 % (4.4-11.3); NEUTROPHILS # (AUTO) 4.4 (2.1-6.9); NEUTROPHILS % 65.2 % (38.7-80.0); PLATELET COUNT 468 x10e3/uL (140-360); RED CELL DISTRIBUTION WIDTH 13.2 % (11.7-14.4)
[2019-07-09] MEDS: PIPER-TAZ 3.375 GM 50 ML IV SCH ×2 (05:52→22:16)
[2019-07-09 05:59] LABS: ANION GAP 12.4 mmol/L (8-16); BLOOD UREA NITROGEN 13 mg/dL (7-26); BUN/CREATININE RATIO 22 (6-25); CALCIUM 8.8 mg/dL (8.4-10.2); CARBON DIOXIDE 30 mmol/L (22-29); CHLORIDE 97 mmol/L (98-107); CREATININE, SERUM 0.59 mg/dL (0.72-1.25); EST GLOMERULAR FILTRATION RATE > 60 ML/MIN (60-); GLUCOSE 92 mg/dL (74-118); POTASSIUM 4.4 mmol/L (3.5-5.1); SODIUM 135 mmol/L (136-145)
--- NOTE | 2019-07-09 06:40 | NUR ---
Wound dressing to sacral /buttock done per MD's orders. Patient tolerated well.
--- NOTE | 2019-07-09 07:00 | NUR ---
Walking rounds done. Shift report given to oncoming nurse.
--- NOTE | 2019-07-09 07:45 | NUR ---
Patient alert and responsive, in bed and had multiple BMs last night per report, dressing in place to wound on buttocks, denies pain, call light within reach, will monitor.
[2019-07-09] MEDS: VANCOMYCIN 1GM/NS 250 ML 250 ML IV SCH (09:00)
[2019-07-09] MEDS: GABAPENTIN 300 MG CAP PO SCH ×2 (09:40→17:31)
[2019-07-09] MEDS: CLONAZEPAM 0.5 MG TAB PO SCH ×2 (09:40→17:31)
[2019-07-09] MEDS: LORATADINE/PSEUDOEPHEDRINE 24 HR SR TAB PO SCH (09:40)
[2019-07-09] MEDS: ZINC SULFATE 220 MG CAP PO SCH (09:40)
[2019-07-09] MEDS: COLLAGENASE 5 GM TUBE TOP SCH (11:28)
[2019-07-09] MEDS: BALSAM PERU/CASTOR OIL 60 GM OINT...G. TP SCH (11:28)
[2019-07-09] MEDS: SODIUM HYPOCHLORITE 0.25% 480 ML SOLN IR SCH (11:28)
[2019-07-09] MEDS: ACETAMINOPHEN/CODEINE 300MG - 30MG TAB PO PRN (15:29)
--- NOTE | 2019-07-09 16:28 | NUR ---
Medicated patient for pain prior to wound dressing change, cleansed wounds all 3 with NS and treatment per orders, Alyven dressing applied.
--- NOTE | 2019-07-09 17:53 | Progress Note ---
DATE: 07/09/2019 CONSULTING PHYSICIANS: 1. Dr. Longoria with Wound Care. 2. Dr. Alvarez with ID. CHIEF COMPLAINT: Came in with fever and multiple sacral and buttock ulcers. REVIEW OF SYSTEMS: GENERAL: In bed with no acute distress. LUNGS: No shortness of breath. HEART: No chest pain. ABDOMEN: Soft and nontender. NEUROLOGIC: Alert and awake. He is paraplegic from T3-T4. PHYSICAL EXAMINATION: VITAL SIGNS: Temperature 96.8, pulse is 94, blood pressure is 102/47, respiration rate is 16, and SpO2 is 96%. MEDICATIONS: Please see medication list. Currently on Zosyn and vancomycin for osteomyelitis. LABORATORY DATA: Labs were noted and unremarkable. IMPRESSION: 1. Sepsis due to multiple cellulitis at the sacral and buttocks area with high suspicion of osteomyelitis. 2. Urinary tract infection. 3. Chronic anemia. 4. Paraplegia. 5. Anxiety. 6. Constipation, which has resolved now. PLAN: We will continue with IV Zosyn and vancomycin per ID recommendations for osteomyelitis. PICC line was inserted and is functioning. Case management has been consulted for LTAC placement. Awaiting on approval and transfer. Dictated by JAREK Zambrano Chrissy Downey MD MY/MODL /[id number]
--- NOTE | 2019-07-09 19:00 | NUR ---
RECEIVED PATIENT IN BEDSIDE REPORT. PATIENT RESTING IN BED AT THIS TIME. VISITORS AT BEDSIDE. NO PAIN REPORTED. NO S&S OF DISTRESS NOTED. BED LOCKED IN LOWEST POSITION, SIDE RAILS UPX2, CALL LIGHT IN REACH.
[2019-07-09] MEDS ORDERED: VANCOMYCIN 1GM/NS 250 ML 250 ML IV SCH (21:00)
--- NOTE | 2019-07-09 23:23 | NUR ---
PATIENT COMPLAINING OF ITCHING ON ARMS AND BACK OF NECK AFTER LAST ZOSYN ADMINISTRATION. SPOKE WITH MD KEANE, NEW ORDERS RECEIVED FOR PRN BENADRYL. CONTINUE IV ZOSYN, BUT WATCH CLOSELY FOR REACTIONS.
[2019-07-09] MEDS: DIPHENHYDRAMINE HCL INJ 50 MG/ML VIAL IV PRN (23:52)
[2019-07-10] VITALS (8 sets, daily range): BP systolic 121–162; BP diastolic 57–87
[2019-07-10] MEDS: PIPER-TAZ 3.375 GM 50 ML IV SCH ×4 (06:20→22:08)
[2019-07-10] MEDS: LORATADINE/PSEUDOEPHEDRINE 24 HR SR TAB PO SCH (08:39)
[2019-07-10] MEDS: VANCOMYCIN 1GM/NS 250 ML 250 ML IV SCH (08:39)
[2019-07-10] MEDS: CLONAZEPAM 0.5 MG TAB PO SCH ×2 (08:39→16:47)
[2019-07-10] MEDS: ZINC SULFATE 220 MG CAP PO SCH (08:39)
[2019-07-10] MEDS: GABAPENTIN 300 MG CAP PO SCH ×2 (08:39→16:47)
--- NOTE | 2019-07-10 11:27 | NUR ---
Patient assisted with bed bath, had small BM, care provided and wound care provided with packing to wound on right gluteal fold, skin to buttock very irritated, inflamed. repositioned per protocol, will monitor. Currently on IV abx, call light within reach.
[2019-07-10] MEDS: BALSAM PERU/CASTOR OIL 60 GM OINT...G. TP SCH (11:29)
[2019-07-10] MEDS: SODIUM HYPOCHLORITE 0.25% 480 ML SOLN IR SCH (11:29)
[2019-07-10] MEDS: COLLAGENASE 5 GM TUBE TOP SCH (11:29)
--- NOTE | 2019-07-10 16:24 | Progress Note ---
DATE: 07/10/2019 CONSULTING PHYSICIANS: 1. Dr. Longoria with wound care. 2. Dr. Alvarez with Infectious Disease. CHIEF COMPLAINT: Multiple sacral and buttock ulcers and fever. REVIEW OF SYSTEMS: GENERAL: Alert, awake, with no acute distress. HEENT: No mouth sores. LUNGS: No shortness of breath or cough. CARDIOVASCULAR: No palpitations. No chest pain. ABDOMEN: Soft, nontender, moving bowels. NEUROLOGIC: Alert and oriented. MUSCULOSKELETAL: Paraplegia. OBJECTIVE: VITAL SIGNS: Temperature is 96.5, pulse is 99, BP is 128/58, respirations are 18, SpO2 is 96%. GENERAL: Alert, awake, oriented x3. HEENT: Normocephalic. NECK: Supple. LUNGS: Clear to auscultation. CARDIOVASCULAR: Normal rate and rhythm. ABDOMEN: Soft and nontender. NEUROLOGIC: Alert, awake, oriented x3. MUSCULOSKELETAL: He is paraplegic, but able to move his upper extremities. MEDICATIONS: He is on Zosyn and vancomycin and resume home medication. LABORATORY DATA: Potassium was 4.4, sodium 135, CO2 of 30. WBC is 6.7, hemoglobin is 8.7, hematocrit 27.9. Wound culture shows Staphylococcus aureus. Urine culture is also positive for E coli, Pseudomonas aeruginosa and Morganella morganii. IMPRESSION: 1. Sepsis due to osteomyelitis and multiple sacral and buttock cellulitis. Wound culture is positive for Staph aureus. 2. Urinary tract infection with multiple organisms growing E coli, Pseudomonas aeruginosa, and Morganella morganii. 3. Chronic anemia. 4. Paraplegia. 5. Anxiety. We will continue with Zosyn and vancomycin per ID, wound care per Dr. Longoria, we will monitor BMP and creatinine levels, pending LTAC evaluation and transfer. Dictated by Dannielle Santiago, JAREK Chrissy Downey MD MY/MODL /[id number]
--- NOTE | 2019-07-10 17:14 | NUR ---
Patient alert and responsive, appetite fair, repositioned per protocol, tolerated all abx via picc line, call light within reach, pains well managed, will monitor.
--- NOTE | 2019-07-10 19:00 | NUR ---
RECEIVED PATIENT IN BEDSIDE REPORT. PATIENT IS RESTING IN BED ON RIGHT SIDE. PATIENT REPORTS HE DID NOT SLEEP WELL LAST NIGHT AND DOES NOT WANT ANYONE COMING IN THE ROOM BETWEEN MIDNIGHT AND 0700. REMINDED PATIENT OF NEED TO TURN TO PREVENT FURTHER BREAKDOWN OF SKIN ON SACRUM. PATIENT STATED HE IS AWARE, BUT DOES NOT WANT TO BE DISTURBED. WILL POSITION AT MIDNIGHT AND GET VITALS AND NOT DISTURB. ASKED PATIENT TO CALL IF HE WAKES UP DURING THAT TIME SO WE CAN POSITION HIM, PATIENT AGREED. BED LOCKED IN LOWEST POSITION, SIDE RAILS UPX2, CALL LIGHT IN REACH. POSEY DRAINING CLEAR, YELLOW URINE. R UA PICC LINES ASYMPTOMATIC, INTACT, AND PATENT.
--- NOTE | 2019-07-10 19:04 | NUR ---
Patient alert and responsive, report given to on coming nurse, patient stable.
[2019-07-10] MEDS: ACETAMINOPHEN/CODEINE 300MG - 30MG TAB PO PRN (19:31)
--- NOTE | 2019-07-10 22:53 | NUR ---
PATIENT REQUESTED R HAND 20G IV BE REMOVED IT IS NOT BEING USED MUCH AFTER PICC LINE PLACEMENT. REMOVED. CATHETER TIP INTACT. PRESSURE DRESSING APPLIED.
[2019-07-11] VITALS (7 sets, daily range): BP systolic 87–156; BP diastolic 53–67
[2019-07-11] MEDS: PIPER-TAZ 3.375 GM 50 ML IV SCH ×3 (07:08→21:47)
[2019-07-11] MEDS: CLONAZEPAM 0.5 MG TAB PO SCH ×2 (08:57→16:48)
[2019-07-11] MEDS: COLLAGENASE 5 GM TUBE TOP SCH (08:57)
[2019-07-11] MEDS: GABAPENTIN 300 MG CAP PO SCH ×2 (08:57→16:49)
[2019-07-11] MEDS: ZINC SULFATE 220 MG CAP PO SCH (08:57)
[2019-07-11] MEDS: LORATADINE/PSEUDOEPHEDRINE 24 HR SR TAB PO SCH (08:57)
[2019-07-11] MEDS: SODIUM HYPOCHLORITE 0.25% 480 ML SOLN IR SCH (08:57)
[2019-07-11] MEDS: VANCOMYCIN 1GM/NS 250 ML 250 ML IV SCH (08:57)
[2019-07-11] MEDS: BALSAM PERU/CASTOR OIL 60 GM OINT...G. TP SCH (08:58)
[2019-07-11] MEDS: ACETAMINOPHEN/CODEINE 300MG - 30MG TAB PO PRN ×2 (12:19→21:51)
--- NOTE | 2019-07-11 14:47 | Progress Note ---
DATE: 07/11/2019 CONSULTING PHYSICIANS: 1. Dr. Longoria with Wound Care. 2. Dr. Uvaldo Alvarez with Infectious Disease. CHIEF COMPLAINT: Came in with fever and multiple worsening sacral and buttock ulcer. REVIEW OF SYSTEMS: GENERAL: Appears in no acute distress. HEENT: No mouth sores. LUNGS: No shortness of breath. No cough. CARDIOVASCULAR: No chest pain or palpitations. ABDOMEN: No nausea, vomiting, or diarrhea. NEUROLOGIC: Alert and oriented. MUSCULOSKELETAL: Paraplegic. SKIN: Multiple ulcers in the sacral and buttocks area. PHYSICAL EXAMINATION: VITAL SIGNS: Temperature 96.6, pulse is 106, blood pressure is 87/53, respirations 19, SpO2 is 94%. GENERAL: He appears in no acute distress. HEENT: Normocephalic, atraumatic. LUNGS: Clear to auscultation. HEART: S1 and S2. No murmurs. ABDOMEN: Soft and nontender. NEUROLOGIC: Alert, awake, oriented x3. MUSCULOSKELETAL: Paraplegic. Unable to feel or move his lower extremities, but good range of motion of the upper extremities. SKIN: Sacral stage IV noted on the right buttock. Dressing intact. MEDICATIONS: He is on Zosyn and vancomycin for antibiotics. All other home medications resumed. LABORATORY DATA: Sodium is 135, potassium is 4.4. Hemoglobin 8.7, WBC 6.7, platelets 468. IMPRESSION: 1. Sepsis due to buttock cellulitis and osteomyelitis. 2. Urinary tract infection with multiple organisms growing. 3. Chronic anemia. 4. Paraplegia. 5. Anxiety. PLAN: To continue with Zosyn and vancomycin for suspected osteomyelitis. Continue management of pain and wound care daily. Continue to turn patient every 2 hours. PICC line is inserted and awaiting bed to [facility] for long-term IV antibiotics. Dictated by JAREK Zambrano Chrissy Downey MD MY/MODL /[id number]
[2019-07-11] MEDS: DIPHENHYDRAMINE HCL INJ 50 MG/ML VIAL IV PRN (21:35)
[2019-07-12] VITALS (8 sets, daily range): BP systolic 100–151; BP diastolic 52–67
[2019-07-12 05:36] LABS: BASOPHILS % 0.8 % (0.0-1.0); EOSINOPHILS # (AUTO) 0.3 (0.0-0.4); EOSINOPHILS % 5.8 % (0.0-6.0); HEMOGLOBIN 8.7 g/dL (14.0-18.0); LYMPHOCYTES # (AUTO) 1.4 (1.0-3.2); LYMPHOCYTES % 28.9 % (18.0-39.1); MEAN CORPUSCULAR HEMOGLOBIN 26.9 pg (28-32); MEAN CORPUSCULAR HGB CONC 31.1 g/dL (31-35); MEAN CORPUSCULAR VOLUME 86.7 fL (81-99); MONOCYTES # (AUTO) 0.6 (0.2-0.8); MONOCYTES % 11.8 % (4.4-11.3); NEUTROPHILS # (AUTO) 2.5 (2.1-6.9); NEUTROPHILS % 52.1 % (38.7-80.0); PLATELET COUNT 395 x10e3/uL (140-360); RED BLOOD COUNT 3.23 x10e6/uL (4.3-5.7); RED CELL DISTRIBUTION WIDTH 13.8 % (11.7-14.4)
[2019-07-12 05:55] LABS: ANION GAP 9.4 mmol/L (8-16); BLOOD UREA NITROGEN 20 mg/dL (7-26); BUN/CREATININE RATIO 29 (6-25); CALCIUM 8.9 mg/dL (8.4-10.2); CARBON DIOXIDE 29 mmol/L (22-29); CHLORIDE 98 mmol/L (98-107); EST GLOMERULAR FILTRATION RATE > 60 ML/MIN (60-); GLUCOSE 89 mg/dL (74-118); POTASSIUM 4.4 mmol/L (3.5-5.1); SODIUM 132 mmol/L (136-145)
[2019-07-12] MEDS: PIPER-TAZ 3.375 GM 50 ML IV SCH ×3 (06:20→22:30)
--- NOTE | 2019-07-12 07:02 | NUR ---
BEDSIDE SHIFT REPORT GIVEN TO ONCOMING NURSE.PT RESTING IN BED WITH NO S/S OF DISTRESS.
--- NOTE | 2019-07-12 07:05 | NUR ---
The pt. is in bed asleep at initial bedside rounds. Siderails are elevated times 3.
[2019-07-12] MEDS: LORATADINE/PSEUDOEPHEDRINE 24 HR SR TAB PO SCH (09:00)
[2019-07-12] MEDS: ZINC SULFATE 220 MG CAP PO SCH (09:00)
[2019-07-12] MEDS: COLLAGENASE 5 GM TUBE TOP SCH (09:00)
[2019-07-12] MEDS: BALSAM PERU/CASTOR OIL 60 GM OINT...G. TP SCH (09:00)
[2019-07-12] MEDS: SODIUM HYPOCHLORITE 0.25% 480 ML SOLN IR SCH (09:00)
[2019-07-12] MEDS: VANCOMYCIN 1GM/NS 250 ML 250 ML IV SCH (09:00)
[2019-07-12] MEDS: GABAPENTIN 300 MG CAP PO SCH ×2 (09:00→17:37)
--- NOTE | 2019-07-12 12:24 | NUR ---
Spoke with Rossy Zhang for update on referral. Case is under review. States she will send them additional clinical today.
--- NOTE | 2019-07-12 15:39 | Progress Note ---
DATE: 07/12/2019 CHIEF COMPLAINT: Multiple sacral and buttock ulcers and fever. REVIEW OF SYSTEMS: GENERAL: Appears in no acute distress. HEENT: Normal. LUNGS: No shortness of breath or cough. CARDIOVASCULAR: No chest pain or palpitations. ABDOMEN: Soft. No nausea or vomiting. NEUROLOGIC: Alert and oriented. SKIN: Multiple sacral and buttock ulcers. PHYSICAL EXAMINATION: VITAL SIGNS: Temperature is 96.6, pulse is 77, blood pressure is 130/62, respirations 18, and SpO2 is 97% on 2 liters of oxygen. GENERAL: He is alert, awake, and oriented x3. HEENT: Normocephalic and atraumatic. LUNGS: Clear to auscultation. CARDIOVASCULAR: Normal heart rate and rhythm. No murmurs. ABDOMEN: Soft and nontender. NEUROLOGIC: Alert and oriented x3. MUSCULOSKELETAL: Paraplegia. Upper extremities with good movement. SKIN: Multiple sacral and buttock ulcers with bone exposed. MEDICATIONS: Please see med list. LABORATORY DATA: Sodium 132, potassium is 4.4, creatinine is 0.70, and BUN is 20. WBCs 4.84 and hemoglobin 8.7. IMPRESSION: 1. Sacral and buttock ulcers with cellulitis and questionable osteomyelitis. 2. Urinary tract infection. 3. Chronic anemia. 4. Paraplegia. 5. Anxiety. PLAN: Plan is to continue with IV antibiotics and wound care, pending LTAC evaluation and transfer. Dictated by JAREK Zambrano Chrissy Downey MD MY/MODL /[id number]
[2019-07-12] MEDS: ACETAMINOPHEN/CODEINE 300MG - 30MG TAB PO PRN (15:46)
--- NOTE | 2019-07-12 19:25 | NUR ---
Patient received lying in bed. AAO x 3. No acute distress noted. Suprapubic catheter in place draining pale clear yellow urine. Call light within reach.
[2019-07-13] VITALS (9 sets, daily range): BP systolic 100–166; BP diastolic 54–75
[2019-07-13] MEDS: DIPHENHYDRAMINE HCL INJ 50 MG/ML VIAL IV PRN (03:55)
--- NOTE | 2019-07-13 05:15 | NUR ---
Wound dressing done per MD's orders.
[2019-07-13] MEDS: PIPER-TAZ 3.375 GM 50 ML IV SCH ×3 (05:44→22:30)
[2019-07-13] MEDS: ACETAMINOPHEN/CODEINE 300MG - 30MG TAB PO PRN ×2 (05:45→20:51)
--- NOTE | 2019-07-13 07:00 | NUR ---
Walking rounds done. Patient resting comfortably. Shift report given to oncoming nurse.
[2019-07-13] MEDS: LORATADINE/PSEUDOEPHEDRINE 24 HR SR TAB PO SCH (08:48)
[2019-07-13] MEDS: GABAPENTIN 300 MG CAP PO SCH ×2 (08:48→17:06)
[2019-07-13] MEDS: ZINC SULFATE 220 MG CAP PO SCH (08:48)
[2019-07-13] MEDS: CLONAZEPAM 0.5 MG TAB PO SCH ×2 (09:49→17:05)
[2019-07-13] MEDS: VANCOMYCIN 1GM/NS 250 ML 250 ML IV SCH (10:00)
--- NOTE | 2019-07-13 11:00 | NUR ---
Spoke with Kwadwo Ibrahim with [facility], who states we are still pending insurance authorization for LTAC.
[2019-07-13] MEDS: BISACODYL 10 MG SUPP PR PRN (13:00)
--- NOTE | 2019-07-13 14:52 | NUR ---
Received phone call from [facility] stating P2P needs to be done with [facility] Patient Support Caseworker. CM left message for Dr. Downey and also informed his MAIL MESSENGER Dannielle Santiago and gave them number to call - Margarita at [phone].
--- NOTE | 2019-07-13 16:00 | Progress Note ---
DATE: 07/13/2019 CONSULTING PHYSICIANS: 1. Dr. Longoria with Wound Care. 2. Dr. Uvaldo Alvarez with Infectious Disease. CHIEF COMPLAINT: Fever with multiple sacral and buttock wounds and constipation. REVIEW OF SYSTEMS: GENERAL: In no acute distress. HEENT: No mouth sores. No vision problems. LUNGS: No shortness of breath or cough. HEART: No chest pain or palpitations. ABDOMEN: Soft. No nausea or vomiting. Complains of constipation. NEUROLOGIC: Alert and oriented. MUSCULOSKELETAL: Paraplegic. SKIN: Multiple sacral and buttock wounds. PHYSICAL EXAMINATION: VITAL SIGNS: Temperature 96.6, pulse is 80, blood pressure 153/62, respirations 18, and SpO2 is 96%. GENERAL: No acute distress. Complains of feeling fatigued. NECK: Supple. No bruits. LUNGS: Clear to auscultation. CARDIOVASCULAR: Rate and rhythm normal. No murmurs heard. HEENT: PERRLA. Normocephalic and atraumatic. ABDOMEN: Soft and nontender. EXTREMITIES: Paraplegic, but able to move upper extremities. NEUROLOGICAL: Alert, awake, and oriented x3. MEDICATIONS: See medication list. LABORATORY DATA: Sodium 132, potassium 4.4, and creatinine 0.70. Van trough level was 12 today. IMPRESSION: 1. Multiple buttock and sacral ulcers with suspicion for osteomyelitis. 2. Urinary tract infection. 3. Chronic anemia. 4. Paraplegia. 5. Anxiety. 6. Constipation. PLAN: We will continue with IV antibiotics, Zosyn and vancomycin. Still awaiting on LTAC approval. Dictated by JAREK Zambrano Chrissy Downey MD MY/MODL /[id number]
--- NOTE | 2019-07-13 16:50 | NUR ---
Spoke with NESTOR Spicer. States she did P2P and LTAC was denied. Was told SNF will be able to do abx and wound care. Order placed for SNF eval.
[2019-07-13] MEDS: SODIUM HYPOCHLORITE 0.25% 480 ML SOLN IR SCH (17:31)
[2019-07-13] MEDS: BALSAM PERU/CASTOR OIL 60 GM OINT...G. TP SCH (17:31)
[2019-07-13] MEDS: COLLAGENASE 5 GM TUBE TOP SCH (17:31)
--- NOTE | 2019-07-13 17:31 | NUR ---
SPOKE WITH PT AND VIA PHONE IN ROOM, LET KNOW DENIED FOR LTAC AND GAVE OPTIONS FOR PLACEMENT FOR SNF, PT AND AGREED TO [facility]. SIGNED CHOICE AND FAXED CLINICALS TO [phone]
--- NOTE | 2019-07-13 19:46 | NUR ---
Dr. Downey paged regarding patient's hypotensive state: 67/44 with HR of 133. BP taken manually (100/58). WOOL SHEARER (Dannielle Santiago) for Dr. Downey returned call. New orders received for EKG and telemetry. WOOL SHEARER stated to call back if SBP < 90.
[2019-07-13] MEDS ORDERED: SODIUM CHLORIDE 0.9% 250ML 250 ML ONE (20:50)
[2019-07-13] MEDS: HEPARIN SOD (PORCINE) 5,000 UNIT/ML VIAL SC SCH (21:00)
[2019-07-13] MEDS: SODIUM CHLORIDE 0.9% 1000ML 1,000 ML IV SCH (21:00)
--- NOTE | 2019-07-13 21:41 | NUR ---
Patient's BP re-checked (106/61) with HR (117). IVF infusing at 100cc/hr. No acute distress noted. EKG results related to [employer].
[2019-07-14] VITALS (9 sets, daily range): BP systolic 134–159; BP diastolic 62–85
[2019-07-14] MEDS: DIPHENHYDRAMINE HCL INJ 50 MG/ML VIAL IV PRN ×2 (00:46→22:00)
[2019-07-14] MEDS: PIPER-TAZ 3.375 GM 50 ML IV SCH ×3 (06:00→21:35)
[2019-07-14 06:02] LABS: BASOPHILS % 0.4 % (0.0-1.0); EOSINOPHILS # (AUTO) 0.2 (0.0-0.4); EOSINOPHILS % 2.6 % (0.0-6.0); HEMATOCRIT 28.5 % (38.2-49.6); HEMOGLOBIN 8.9 g/dL (14.0-18.0); LYMPHOCYTES # (AUTO) 1.8 (1.0-3.2); LYMPHOCYTES % 26.1 % (18.0-39.1); MEAN CORPUSCULAR HEMOGLOBIN 27.5 pg (28-32); MEAN CORPUSCULAR HGB CONC 31.2 g/dL (31-35); MONOCYTES # (AUTO) 0.5 (0.2-0.8); MONOCYTES % 7.6 % (4.4-11.3); NEUTROPHILS # (AUTO) 4.4 (2.1-6.9); PLATELET COUNT 402 x10e3/uL (140-360); RED BLOOD COUNT 3.24 x10e6/uL (4.3-5.7); RED CELL DISTRIBUTION WIDTH 14.3 % (11.7-14.4)
[2019-07-14 06:19] LABS: ANION GAP 12.3 mmol/L (8-16); BLOOD UREA NITROGEN 22 mg/dL (7-26); BUN/CREATININE RATIO 33 (6-25); CALCIUM 8.8 mg/dL (8.4-10.2); CARBON DIOXIDE 26 mmol/L (22-29); CHLORIDE 101 mmol/L (98-107); CREATININE, SERUM 0.67 mg/dL (0.72-1.25); EST GLOMERULAR FILTRATION RATE > 60 ML/MIN (60-); GLUCOSE 91 mg/dL (74-118); POTASSIUM 4.3 mmol/L (3.5-5.1); SODIUM 135 mmol/L (136-145)
[2019-07-14] MEDS: SODIUM CHLORIDE 0.9% 1000ML 1,000 ML IV SCH (06:30)
--- NOTE | 2019-07-14 07:00 | NUR ---
Shift report given to oncoming nurse.
[2019-07-14 08:07] LABS: LYMPHOCYTES % (MANUAL) 32 % (19-48); MONOCYTES % (MANUAL) 14 % (3.4-9.0); NEUTROPHILS % (MANUAL) 50 % (40-74); PLATELET ESTIMATE SLIGHTLY INCREASED; PLATELET MORPHOLOGY COMMENT NORMAL; RBC MORPHOLOGY COMMENT NORMAL
[2019-07-14] MEDS: HEPARIN SOD (PORCINE) 5,000 UNIT/ML VIAL SC SCH ×2 (08:49→21:27)
[2019-07-14] MEDS: GABAPENTIN 300 MG CAP PO SCH ×2 (08:49→17:37)
[2019-07-14] MEDS: VANCOMYCIN 1GM/NS 250 ML 250 ML IV SCH (08:49)
[2019-07-14] MEDS: ZINC SULFATE 220 MG CAP PO SCH (08:49)
[2019-07-14] MEDS: CLONAZEPAM 0.5 MG TAB PO SCH ×2 (08:49→17:37)
[2019-07-14] MEDS: LORATADINE/PSEUDOEPHEDRINE 24 HR SR TAB PO SCH (09:00)
[2019-07-14] MEDS ORDERED: MINERAL OIL 132 ML BTL PR NR (11:30)
--- NOTE | 2019-07-14 12:42 | NUR ---
COMPLETED PASRR FAXED TO FACILITY, FILED IN CHART AND PUT COPY WITH PACKET FOR FACILITY WITH COMPLETED RTF PENDING BED AND MD ASSIGNMENT
--- NOTE | 2019-07-14 14:29 | NUR ---
Spoke with Margarita PARNELL with [facility] [phone]. Informed her that we sent referral to [facility] for fci. She stated that she has not gotten anything from them yet, but will expedite referral and approve today once she gets it. Sussy FREGOSO called and spoke with admissions at [facility] and asked them to send referral KIKI.
[2019-07-14] MEDS: BALSAM PERU/CASTOR OIL 60 GM OINT...G. TP SCH (15:16)
[2019-07-14] MEDS: COLLAGENASE 5 GM TUBE TOP SCH (15:16)
[2019-07-14] MEDS: SODIUM HYPOCHLORITE 0.25% 480 ML SOLN IR SCH (15:16)
--- NOTE | 2019-07-14 15:46 | NUR ---
SENIOR CARE FACILITY DISCHARGE INFORMATION PATIENT HAS BEEN ACCEPTED TO: NAME: [facility] ADDRESS: [id number], BUSY ACCEPTING SNOW REMOVAL/PLOWING: JEWEL LO ACCEPTING MD: CHEYANNE ROOM: [address] NURSE CALL REPORT TO: [phone] THE FOLLOWING DOCUMENTS MUST ACCOMPANY PATIENT FOR TRANSFER: COPIED CHART: CLINICALS AND PASRR
--- NOTE | 2019-07-14 17:08 | NUR ---
Nutrition Follow-up Note RD Recommendation(s) for Physician: The patient meets criteria for MODERATE protein-calorie malnutrition. - Continue regular diet as ordered - Continue Ensure Enlive TID - Rec MVi w/minerals, vitamin C, and zinc sulfate to support wound healing Plan of Care: RD following, monitoring for tolerance and adequacy, ONS rec Nutrition reason for involvement: Follow up RD Assessment 07/14 Visited pt in the room. Pt reported fair appetite. Pt drank 100% of Ensure ordered. No GI complains reported. Plan to discharge today. 07/07 - Visited pt in the room. Pt reported fair appetite. PCT recorded 50-75% meal intake. Pt denied any chewing or swallowing difficulty. Pt complained of constipation even after lactulose was given yesterday. RN Jaime was aware. Pt has been drinking Ensure given. No other complains at this time. 07/05 78yo M, who was admitted from home for fever and chills. Pt with BLE paralysis. Visited pt in the room. Pt ate ~60% of lunch today. Pt stated I usually eat smaller meals at home because of my hernia. reported pt eating less than usual for the last few months due to discomfort from hernia. thinks pt has lost some weight with reported UBW ~140lbs. Pt denied any nausea or vomiting. LBM 06/30, on bowel regimen at home. Pt denied any chewing or swallowing difficulty. Pt usually drinks 1 Ensure at home. Discussed the importance of adequate calories and high protein diet for wound healing; and pt were agreeable. Will continue to monitor and follow. 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 Energy intake: <75% of estimated energy requirements for >3 months Weight loss: 5lbs weight loss in the last 6 months, not meeting criteria Fat loss: Moderate hollow look around orbital region Muscle loss: Moderate clavicle protrusion, temporal depression Supporting Evidence: Fluid accumulation: None Functional Status: no changes Nutrition Prescription (Diet Order): Regular diet w/ Ensure Enlive TID Estimated Nutritional Needs: Calories: 1500 1755kcal (23-27kcal/kg/d) Weight used: CBW Protein: 98 130g (1.5-2.0g/kg/d) Weight used: CBW Diet Adequacy: meeting calorie needs, meeting protein needs Diet Education Needs Assessment: Diet education not indicated. Nutrition Care Level: low Nutrition Diagnosis: Increased protein needs related to altered skin integrity as evidenced by stage II pressure ulcer to scrum, R buttock unstageable pressure ulcer, and L buttock stage II pressure ulcer. Goal: Patient will meet 75-100% of estimated needs by follow up Progress: Goal met Interventions: General healthful diet, Commercial beverage, Multivitamin/mineral supplement therapy Monitoring/Evaluation: Total energy intake, Total protein intake, Modified diet, Liquid supplement, Weight change Signed: Enma Teran, MS, RD, LD
--- NOTE | 2019-07-14 18:20 | NUR ---
window assembler notified that patient is to dc tomorrow 07/15/19 at 0900 and ambulance has been scheduled.
--- NOTE | 2019-07-14 18:48 | Progress Note ---
DATE: 07/14/2019 CONSULTING PHYSICIANS: 1. Kenneth Pappas MD., with Wound Care. 2. Uvaldo Alvarez MD., for Infectious Disease. CHIEF COMPLAINT: Fever and multiple sacral and buttocks ulcer. REVIEW OF SYSTEMS: GENERAL: No acute distress. HEENT: No mouth sore or head trauma. LUNGS: No shortness of breath or cough. CARDIOVASCULAR: Had palpitation yesterday, last night, but no chest pain or palpitations today. ABDOMEN: No nausea or vomiting. Complains of constipation. NEUROLOGY: Alert and oriented. MUSCULOSKELETAL: Paraplegia. SKIN: Multiple wounds in the sacral and buttocks area. PHYSICAL EXAMINATION: VITAL SIGNS: Temperature is 98.4, pulse is 97, blood pressure is 141/78, respirations 18, SpO2 is 95. GENERAL: Sitting up, with no acute distress. NECK: Supple. Midline. LUNGS: Clear to auscultation. CARDIOVASCULAR: S1, S2. No murmurs heard. HEENT: Normocephalic, atraumatic. PERRLA. ABDOMEN: Soft, nontender. Active bowel sounds. EXTREMITIES: Paraplegia, but is able to move upper extremities. NEUROLOGIC: Alert, awake, and oriented x3. SKIN: Sacral and buttocks ulcers. Wound dressing intact. MEDICATIONS: See MAR. LABORATORY DATA: Sodium 135, potassium 4.3, creatinine 0.67. WBC 7.01, hemoglobin 8.9, hematocrit 28.5. IMPRESSION: 1. Multiple buttocks and sacral cellulitis and wound ulcer with osteomyelitis. 2. Urinary tract infection. 3. Chronic anemia. 4. Paraplegia. 5. Anxiety. 6. Sinus tachycardia overnight. PLAN: The patient was given 2 L of normal saline IV overnight due to tachycardia and hypotension. Today, blood pressure is up to 141/70, we will discontinue the IV fluids, EKG showed right bundle branch block. We will continue to monitor on telemetry. He has denied for LTAC and now pending for SNF evaluation. May be discharged once SNF bed is available. Dictated by JAREK Zambrano Yiching Erwin Downey MD MY/MODL /[id number]
[2019-07-15 00:07] VITALS: BP 160/76
[2019-07-15 03:35] VITALS: BP 153/66
[2019-07-15] MEDS: PIPER-TAZ 3.375 GM 50 ML IV SCH (05:31)
[2019-07-15] MEDS: ACETAMINOPHEN/CODEINE 300MG - 30MG TAB PO PRN (05:51)
--- NOTE | 2019-07-15 06:38 | NUR ---
PICC dressing done.
--- NOTE | 2019-07-15 07:00 | NUR ---
BEDSIDE SHIFT REPORT RECEIVED FROM THE SOLAR SALES REPRESENTATIVE RN. PT DENIES NEEDS AT THIS TIME. PT IS TRANSFERRING TO [facility].
[2019-07-15 08:00] VITALS: BP 131/72
--- NOTE | 2019-07-15 08:00 | NUR ---
CALL BACK FROM EMS. WILL PICK PT BY [phone].
[2019-07-15] MEDS: LORATADINE/PSEUDOEPHEDRINE 24 HR SR TAB PO SCH (08:33)
[2019-07-15] MEDS: CLONAZEPAM 0.5 MG TAB PO SCH (08:40)
[2019-07-15] MEDS: ZINC SULFATE 220 MG CAP PO SCH (08:41)
[2019-07-15 08:49] VITALS: BP 131/72
[2019-07-15] MEDS: HEPARIN SOD (PORCINE) 5,000 UNIT/ML VIAL SC SCH (09:00)
--- NOTE | 2019-07-15 09:02 | NUR ---
SPOKE WITH VIA PHONE ABOUT IMM EDUCATED AND FILED IN CHART.
[2019-07-15] MEDS: VANCOMYCIN 1GM/NS 250 ML 250 ML IV SCH (09:16)
--- NOTE | 2019-07-15 09:45 | NUR ---
TRANSFER REPORT GIVEN TO JESIKA CUNNINGHAM IN [facility].
[2019-07-15] MEDS: BALSAM PERU/CASTOR OIL 60 GM OINT...G. TP SCH (10:00)
[2019-07-15] MEDS: COLLAGENASE 5 GM TUBE TOP SCH (10:00)
[2019-07-15] MEDS: SODIUM HYPOCHLORITE 0.25% 480 ML SOLN IR SCH (10:00)
[2019-07-15] MEDS ORDERED: GABAPENTIN 300 MG CAP PO SCH (10:00)
--- NOTE | 2019-07-15 10:40 | NUR ---
PT DISCHARGED TO [facility] RM 102A VIA [facility] WITH PT FAMILY.TRANSFER REPORT GIVEN TO JESIKA CUNNINGHAM. PT DENIED FURTHER NEEDS. PICC LINE @ IN PLACE FOR FUTURE ABX USE.
--- NOTE | 2019-07-16 06:35 | Discharge Summary ---
CONSULTING PHYSICIANS: 1. Dr. Longoria with Wound Care. 2. Dr. Uvaldo Alvarez with Infectious Disease. PRIMARY CARE DOCTOR: Dr. Venkatesh Chery. FINAL DIAGNOSES: 1. Multiple ulcers in the buttocks and sacral area with osteomyelitis. 2. Urinary tract infection. 3. Chronic anemia. 4. Paraplegia. 5. Anxiety disorder. HISTORY OF PRESENT ILLNESS: As per H and P. HOSPITAL COURSE: This is a 78-year-old male who presented with fever and hyponatremia associated with multiple sacral and buttock ulcer due to his bed-bound status. He also has a suprapubic catheter, urine sample was obtained. Culture was positive for multiple organisms. The culture also taken from the wound, was positive for Pseudomonas. Infectious Disease doctor, Dr. Alvarez and Dr. Longoria with Wound Care were consulted. Wound care performed daily per Wound Care. Chest x-ray was unremarkable. CT of the abdomen showed some cellulitis in the left hip and also constipation. Bone scan to rule out osteomyelitis was done, showed markedly osteoblastic process in the right inferior pubic ramus, is worrisome for osteomyelitis. PICC line was inserted and he was treated for osteomyelitis with vancomycin and Zosyn for sensitivity. We attempted to send the patient to LTAC, but was denied for LTAC, will be sending to [facility] facility to complete his 6 weeks of vancomycin and Zosyn for his osteomyelitis and wound care. Today, he is accepted at [facility], where he will be transferred. PHYSICAL EXAMINATION: VITAL SIGNS: Temperature 97.2, pulse is 80, respirations 19, and SpO2 is 95% on room air. GENERAL: In no acute distress. NECK: Supple. Midline. LUNGS: Clear to auscultation. CARDIOVASCULAR: Rhythm and rate are normal and regular. HEENT: Normocephalic and atraumatic. PERRLA. ABDOMEN: Soft and nontender with active bowel sounds. EXTREMITIES: Paraplegic upper extremities with active range of motion. NEUROLOGIC: Alert, awake, and oriented x3. SKIN: Sacral and buttock ulcers. Wound dressing is intact. MEDICATIONS: See medication reconciliation list. DISCHARGE CONDITION: Stable and improved. FOLLOWUP: Follow up with his primary care doctor and with Wound Care. Total discharge time is 33 minutes. Dictated by JAREK Zambrano Yiching MD SREEDHAR Frausto/SHIVAM /[id number]
== END 2019-07-15 10:54 | DRG 871 ==
LOC: ER 12:27 → ERHOLD 14:52 → MED/SURG2 18:19 → MED/SURG 07-12 17:12 → MED/SURG2 07-12 17:13
PROVIDERS: ADMIT Internal Medicine; ATTEND Internal Medicine
PROC: 02HV33Z Insertion of Infusion Device into Superior Vena Cava, Percutaneous Approach (ICD-10-PCS; principal; 2019-07-08)
PROC: B548ZZA Ultrasonography of Superior Vena Cava, Guidance (ICD-10-PCS; 2019-07-08)
DX: A41.9 Sepsis, unspecified organism (principal); L89.153 Pressure ulcer of sacral region, stage 3; L89.314 Pressure ulcer of right buttock, stage 4; L89.323 Pressure ulcer of left buttock, stage 3; N39.0 Urinary tract infection, site not specified; E87.1 Hypo-osmolality and hyponatremia; L03.317 Cellulitis of buttock; G82.20 Paraplegia, unspecified; M86.8X8 Other osteomyelitis, other site; L03.818 Cellulitis of other sites; E44.0 Moderate protein-calorie malnutrition; D64.9 Anemia, unspecified; F41.9 Anxiety disorder, unspecified; I71.9 Aortic aneurysm of unspecified site, without rupture; Z91.048 Other nonmedicinal substance allergy status; Z83.3 Family history of diabetes mellitus; Z82.49 Family history of ischemic heart disease and other diseases of the circulatory system; I69.398 Other sequelae of cerebral infarction; I71.4 Abdominal aortic aneurysm, without rupture; Z74.01 Bed confinement status; Z87.891 Personal history of nicotine dependence; K44.9 Diaphragmatic hernia without obstruction or gangrene; D63.8 Anemia in other chronic diseases classified elsewhere; K59.00 Constipation, unspecified; B96.5 Pseudomonas (aeruginosa) (mallei) (pseudomallei) as the cause of diseases classified elsewhere; B96.20 Unspecified Escherichia coli [E. coli] as the cause of diseases classified elsewhere; B95.61 Methicillin susceptible Staphylococcus aureus infection as the cause of diseases classified elsewhere; B96.89 Other specified bacterial agents as the cause of diseases classified elsewhere; Z68.20 Body mass index [BMI] 20.0-20.9, adult
CPT/HCPCS: 36415; 36569; 71045; 74177; 78315; 80048; 80053; 80202; 81001; 82550; 82553; 83605; 83735; 84100; 84443; 84484; 85025; 85610; 85730; 86140; 87040; 87071; 87086; 87186; 87205; 90732; 93005; 99284; A9503; J1200; J1644; J2543; J3370; J7030; J7050; Q9967

== ENCOUNTER 2019-11-16 13:36 | Inpatient (IN) | payer MEDICARE ==
[~2019-11-16] VITALS: Ht 172.7 cm; Wt 63.3 kg
[~2019-11-16 13:36] MED LIST: CLONAZEPAM0.5 MG PO; GABAPENTIN300 MG PO; ZINC SULFATE220 MG PO
[2019-11-16] MEDS ORDERED: SODIUM CHLORIDE 0.9% 1000ML 1,000 ML IV STA (14:07)
--- NOTE | 2019-11-16 14:46 | NUR ---
Triage assessment done at 1347. Documentation done later due to computer failure.
[2019-11-16] MEDS: PIPER-TAZ 3.375 GM 50 ML IV SCH ×2 (15:16→21:10)
[2019-11-16 15:20] LABS: BASOPHILS % 0.2 % (0.0-1.0); EOSINOPHILS % 0.7 % (0.0-6.0); HEMATOCRIT 36.2 % (38.2-49.6); HEMOGLOBIN 11.2 g/dL (14.0-18.0); LYMPHOCYTES # (AUTO) 0.9 (1.0-3.2); LYMPHOCYTES % 19.9 % (18.0-39.1); MEAN CORPUSCULAR HEMOGLOBIN 25.9 pg (28-32); MEAN CORPUSCULAR HGB CONC 30.9 g/dL (31-35); MEAN CORPUSCULAR VOLUME 83.8 fL (81-99); MONOCYTES # (AUTO) 0.3 (0.2-0.8); MONOCYTES % 7.5 % (4.4-11.3); NEUTROPHILS # (AUTO) 3.1 (2.1-6.9); NEUTROPHILS % 71.5 % (38.7-80.0); PLATELET COUNT 318 x10e3/uL (140-360); RED BLOOD COUNT 4.32 x10e6/uL (4.3-5.7); RED CELL DISTRIBUTION WIDTH 15.6 % (11.7-14.4)
[2019-11-16 15:30] LABS: INR 1.02; PROTHROMBIN TIME 13.9 seconds (11.9-14.5)
--- NOTE | 2019-11-16 15:30 | Diagnostic Imaging Report ---
Chest, portable AP view History: MS, possible sepsis Comparison: 07/08/2019 IMPRESSION: The cardiac silhouette is stable in size. Retrocardiac opacity with air-fluid levels secondary to a hiatal hernia. Bibasilar atelectasis is present. No definite focal consolidation, pleural effusion, or pneumothorax. Signed by: Lino Bourne MD on 11/16/2019 3:27 PM
[2019-11-16 15:31] LABS: PARTIAL THROMBOPLASTIN TIME 38.8 seconds (23.8-35.5)
--- NOTE | 2019-11-16 15:32 | Diagnostic Imaging Report ---
History:AMS Comparison studies:None Technique: Axial images were obtained from the skull base to the vertex. Coronal and sagittal images reconstructed from the axial data. Intravenous contrast: None Dose modulation, iterative reconstruction, and/or weight based adjustment of the mA/kV was utilized to reduce the radiation dose to as low as reasonably achievable. Findings: Scalp/skull: No acute abnormalities. Left pterional craniotomy changes. Left frontal joaquina hole. Extra-axial spaces: No masses. No fluid collections. Metallic clip at the left parasellar region. Brain sulci: Mildly prominent. Ventricles: Mild compensatory dilatation. No hydrocephalus. Parenchyma: Subtle scattered hypodensities in the supratentorial white matter are small vessel ischemic changes. No masses, hemorrhage, acute or chronic cortical vascular insults. Sellar/suprasellar region: No abnormalities. Craniocervical junction: Patent foramen magnum. No Chiari one malformation. Incidental findings: Atherosclerotic calcifications in the carotid siphons . Impression: No acute abnormalities. Chronic findings: 1. Mild generalized volume loss. 2. Mild supratentorial white matter small vessel ischemic changes. 3. 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 Signed by: DR Roman Serna M.D. on 11/16/2019 3:29 PM
[2019-11-16 15:38] LABS: ALANINE AMINOTRANSFERASE 36 IU/L (0-55); ALBUMIN 2.9 g/dL (3.5-5.0); ALBUMIN/GLOBULIN RATIO 0.8 (0.8-2.0); ALKALINE PHOSPHATASE 139 IU/L (40-150); ANION GAP 15.6 mmol/L (8-16); BLOOD UREA NITROGEN 12 mg/dL (7-26); BUN/CREATININE RATIO 19 (6-25); CALCIUM 9.1 mg/dL (8.4-10.2); CARBON DIOXIDE 23 mmol/L (22-29); CHLORIDE 98 mmol/L (98-107); CREATINE KINASE 68 IU/L (30-200); CREATININE, SERUM 0.62 mg/dL (0.72-1.25); EST GLOMERULAR FILTRATION RATE > 60 ML/MIN (60-); GLUCOSE 94 mg/dL (74-118); MAGNESIUM 1.6 MG/DL (1.3-2.1); POTASSIUM 3.6 mmol/L (3.5-5.1); SODIUM 133 mmol/L (136-145)
[2019-11-16 16:08] LABS: CLARITY,URINE HAZY (CLEAR); COLOR,URINE YELLOW (YELLOW); LEUKOCYTE ESTERASE ,URINE 1+ (NEGATIVE); NITRITE,URINE POSITIVE (NEGATIVE); PROTEIN,URINE DIPSTICK 1+ (NEGATIVE); URINE UROBILINOGEN 1 mg/dL (0.2 - 1)
[2019-11-16 16:09] LABS: BILIRUBIN,URINE 1+ (NEGATIVE); KETONES,URINE 1+ (NEGATIVE)
[2019-11-16 16:28] LABS: WBC,URINE (MAN) 21-50 /HPF (0-5)
[2019-11-16 16:30] LABS: BACTERIA,URINE FEW /HPF; EPITHELIAL CELLS,URINE MODERATE /LPF
[2019-11-16] MEDS ORDERED: ONDANSETRON HCL INJ 2MG/ML 2ML 2 MG/ML VIAL IV PRN (16:30)
[2019-11-16] MEDS: SODIUM CHLORIDE 0.9% 1000ML 1,000 ML IV SCH (16:47)
[2019-11-16] MEDS ORDERED: CLONAZEPAM 0.5 MG TAB PO SCH (17:00)
[2019-11-16] MEDS ORDERED: GABAPENTIN 300 MG CAP PO SCH (17:00)
--- NOTE | 2019-11-16 17:06 | Diagnostic Imaging Report ---
CT of the abdomen and pelvis History: Decreased output from suprapubic catheter, altered mental status Comparison: No CT comparisons available for review. Technique: Multidetector CT scanning of the abdomen and pelvis was performed from the level of the lung bases to the inferior pubic ramus without contrast DOSE REDUCTION: The examination was performed according to departmental dose-optimization program which includes automated exposure control, adjustment of the mA and/or kV according to patient size and/or use of iterative reconstruction technique. Discussion: Trace bilateral pleural effusions are present. Lack of IV contrast limits evaluation of solid and hollow visceral organs. There is a 2.5 cm cyst in the left hepatic lobe. No suspicious hepatic lesions are identified. The gallbladder is present nondistended. There is no intrahepatic or extrahepatic biliary dilatation. The spleen is within normal limits. The bilateral adrenal glands are unremarkable. The pancreas is homogeneous in attenuation. There is no pancreatic ductal dilatation or peripancreatic inflammatory stranding. The kidneys are normal in size. There is a 2.9 cm cyst arising from the nipple of the left kidney and a 2.1 cm cyst arising from the upper pole of the right kidney. There is no hydroureteronephrosis bilaterally. No renal calculi are identified. There is a large hiatal hernia. The small bowel is normal in caliber. There is gaseous distention of the rectum and sigmoid colon with fluid in the dependent portion of the rectum. There is no free intraperitoneal air or ascites. A suprapubic bladder drainage catheter is in place. The urinary bladder is nondistended. The suprarenal abdominal aorta is ectatic measuring 3.3 cm in diameter. The infrarenal abdominal aorta is not aneurysmal. There are moderate atherosclerotic calcifications of the aorta and its branch vessels. Infrarenal IVC filter is in place. No acute osseous abnormalities are identified. Heterotopic ossification and exostoses are identified arising from bilateral proximal femurs. IMPRESSION: 1. Suprapubic Rinaldi catheter is in place within the bladder. The bladder is nondistended. 2. Gaseous distention of the rectum and sigmoid colon with dependent fluid in the rectum. A distal rectal stricture is not excluded. There is no evidence of volvulus. 3. Bilateral renal cysts. 4. Large hiatal hernia. Signed by: Lino Bourne MD on 11/16/2019 5:03 PM
[2019-11-16 18:39] VITALS: BP 141/84
[2019-11-16] MEDS ORDERED: IOPAMIDOL 370 MG/ML 200 ML INFUS..BTL INJ ONE (19:28)
[2019-11-16] MEDS ORDERED: SODIUM CHLORIDE 0.9% 50ML 0 ML ONE (19:28)
[2019-11-16 20:00] VITALS: BP 156/81
[2019-11-16 21:00] VITALS: BP 156/81
--- NOTE | 2019-11-16 21:00 | NUR ---
Admission assessment done.aaox1.no resp.distress.family member at bed side.iv fluid running to right ac.suprapubic catheter in place.pressure ulcer noted @ sacrum.allevyn foam applied.bed alarm on.bed locked and in lowest position.phone and call light within reach.instructed to call for assistance as needed.
[2019-11-16 21:10] VITALS: BP 156/81
[2019-11-16] MEDS ORDERED: ACETAMINOPHEN 325 MG TAB PO PRN (23:00)
[2019-11-16] MEDS ORDERED: BISACODYL 10 MG SUPP PR ONE (23:00)
[2019-11-17] VITALS (8 sets, daily range): BP systolic 146–162; BP diastolic 60–101
--- NOTE | 2019-11-17 01:31 | NUR ---
BLOOD COLLECTED AND SENT TO THE LAB.
[2019-11-17] MEDS ORDERED: PNEUMOCOCCAL VACCINE POLYVALENT 23 MCG/0.5 ML VIAL IM SCH (01:32)
[2019-11-17 02:01] LABS: CREATINE KINASE MB 6.8 ng/mL (0-5.0)
[2019-11-17] MEDS: PIPER-TAZ 3.375 GM 50 ML IV SCH ×4 (03:04→21:30)
[2019-11-17] MEDS: SODIUM CHLORIDE 0.9% 1000ML 1,000 ML IV SCH (04:45)
--- NOTE | 2019-11-17 05:12 | History and Physical ---
PRIMARY CARE PHYSICIAN: Dr. Venkatesh Chery. CHIEF COMPLAINT: Chills and low urine output. HISTORY OF PRESENT ILLNESS: This is a 79-year-old male, who presented to the ER with complaints of fever, chills, and low urine outputted from the suprapubic catheter. According to the patient, he has a home health nurse that noted his poor urine output, so exchanged his suprapubic catheter yesterday with no improvement of urine output. He denies any nausea, vomiting, abdominal pain, diarrhea. He denies any chest pain, shortness of breath, cough. We will admit patient for further evaluation. PAST MEDICAL HISTORY: 1. 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 2. Anxiety. 3. Multiple sacral ulcers. PAST SURGICAL HISTORY: He had bilateral hernia repair, tonsillectomy, and aortic aneurysm repair. FAMILY HISTORY: Unknown. SOCIAL HISTORY: He denies any alcohol or drug use. Former smoker. He lives with his with a caregiver and home health. Paraplegic, bedbound and wheelchair bound. REVIEW OF SYSTEMS: GENERAL: Chills and fever, fatigue. HEENT: No head trauma. LUNGS: No shortness of breath. CARDIOVASCULAR: No chest pain. GI: No nausea or vomiting. NEUROLOGIC: Oriented. MUSCULOSKELETAL: Paraplegic. SKIN: Pressure ulcer in the sacral area. PHYSICAL EXAMINATION: VITAL SIGNS: Temperature 96.9, pulse 111, respirations 20, blood pressure 121/84, pulse ox is 94% on room air. GENERAL: No acute distress. Chills, since covers. HEENT: Normocephalic, atraumatic. NECK: Supple. LUNGS: Clear to auscultation. CARDIOVASCULAR: Regular rate and rhythm. Mild tachy. NEUROLOGIC: Alert, awake, and oriented. MUSCULOSKELETAL: Moves upper extremities. He is paraplegic. Normal capillary refill. SKIN: Dry. Pressure ulcer on sacrum, healing. PSYCH: Calm. LABORATORY DATA: WBC 4.38, hemoglobin 11.2, hematocrit 36.2, platelet 318, sodium 133, creatinine 0.62, potassium 3.6, calcium 9.1, lactic acid 1.2, AST 29, ALT 36, magnesium 1.6. CK 68, CK-MB 6.50. Coagulation; PT 13.9, INR 1.0, APTT 38.8. Urine color yellow, nitrates positive with 1+ leukocyte esterase and 21-50 K of WBCs. Urine and blood cultures are pending. Chest x-ray, no pneumonia. CT brain, no acute abnormalities. CT abdomen and pelvis, shows a large hiatal hernia and gaseous distention of the rectum and sigmoid colon with dependent fluid in the rectum. The distal rectal stricture is not excluded. There is no evidence of volvulus. Suprapubic Rinaldi catheter is in place. The bladder is nondistended. IMPRESSION AND PLAN: 1. Urinary tract infection with chronic suprapubic catheter. Questionable if it is colonized or continue with Zosyn and await on cultures. 2. Decreased urine output. A CT of abdomen and pelvis noted. It is likely due to gaseous distention of the rectum or sigmoid colon with suprapubic catheter in place. We will give suppository. 3. Hyponatremia. We will continue with IV fluid hydration. Sodium is 133 and repeat labs in a.m. 4. Paraplegic with multiple sacral pressure ulcers. We will consult Wound Care. 5. History of anxiety. We will continue his home Klonopin b.i.d. 6. Deep vein thrombosis prophylaxis. SCDs. No chemical anticoagulation due to chronic anemia. Dictated by JAREK Zambrano Chrissy Downey MD MY/MODL /[id number]
[2019-11-17 05:24] LABS: BASOPHILS % 0.3 % (0.0-1.0); EOSINOPHILS % 0.3 % (0.0-6.0); HEMATOCRIT 32.1 % (38.2-49.6); HEMOGLOBIN 10.1 g/dL (14.0-18.0); LYMPHOCYTES # (AUTO) 0.8 (1.0-3.2); LYMPHOCYTES % 19.8 % (18.0-39.1); MEAN CORPUSCULAR HEMOGLOBIN 26.2 pg (28-32); MEAN CORPUSCULAR HGB CONC 31.5 g/dL (31-35); MEAN CORPUSCULAR VOLUME 83.4 fL (81-99); MONOCYTES # (AUTO) 0.4 (0.2-0.8); MONOCYTES % 10.7 % (4.4-11.3); NEUTROPHILS # (AUTO) 2.6 (2.1-6.9); NEUTROPHILS % 68.6 % (38.7-80.0); PLATELET COUNT 284 x10e3/uL (140-360); RED BLOOD COUNT 3.85 x10e6/uL (4.3-5.7); RED CELL DISTRIBUTION WIDTH 15.5 % (11.7-14.4)
[2019-11-17 05:53] LABS: CREATINE KINASE MB 6.1 ng/mL (0-5.0)
[2019-11-17 06:16] LABS: ALANINE AMINOTRANSFERASE 53 IU/L (0-55); ALBUMIN 2.6 g/dL (3.5-5.0); ALBUMIN/GLOBULIN RATIO 0.8 (0.8-2.0); ALKALINE PHOSPHATASE 135 IU/L (40-150); ANION GAP 15.2 mmol/L (8-16); BLOOD UREA NITROGEN 11 mg/dL (7-26); BUN/CREATININE RATIO 18 (6-25); CALCIUM 8.6 mg/dL (8.4-10.2); CARBON DIOXIDE 19 mmol/L (22-29); CHLORIDE 101 mmol/L (98-107); EST GLOMERULAR FILTRATION RATE > 60 ML/MIN (60-); GLUCOSE 89 mg/dL (74-118); POTASSIUM 3.2 mmol/L (3.5-5.1); SODIUM 132 mmol/L (136-145)
--- NOTE | 2019-11-17 07:15 | NUR ---
BED SIDE SHIFT REPORT GIVEN TO ONCOMING RNGENESISEINOral IN THE BED.STABLE CONDITION.
[2019-11-17] MEDS ORDERED: ZINC SULFATE 220 MG CAP PO SCH (09:00)
[2019-11-17] MEDS: CLONAZEPAM 0.5 MG TAB PO SCH ×2 (10:00→21:00)
[2019-11-17] MEDS: GABAPENTIN 300 MG CAP PO SCH ×2 (10:00→21:00)
--- NOTE | 2019-11-17 10:53 | NUR ---
WOUND CARE CONSULT 79 YO MALE HX OF ALT MENTAL STATUS , UTI, SACRAL DECUBITUS RAFI 15 ON MODERATE PUP AND ALTERNATING PRESSURE BEDDING SURFACE LABS: WBC 3.84, HGB- 10.1,GLUCOSE - 89 SKIN ASSESSMENT COMPLETE PATIENT PRESENTS WITH #1 STAGE 3 INJURY TO SACRUM MEASURES 1.3 CM X 1CM TRACKING 9 O'CLOCK 7CM AND 11 O'CLOCK 4CM IN DEPTH #2 STAGE 2 PRESSURE INJURY TO LEFT HIP MEASURES 2CM X 2CM X.1 CM PATIENT ALSO HAS HEALED INJURY WITH SCAR TISSUE TO UPPER SACRAL AREA RECOMMENDATIONS: NURSING TO CONTINUE TO MAINTAIN MODERATE PUP STATUS AND ALTERNATING PRESSURE BED SURFACE NURSING TO ASSIST PATIENT OUT OF BED FOR MEALS TOLERATED NURSING TO COVER HEALED SACRAL SCAR TISSUE AREA WITH ALLEVYN FOAM TO PREVENT SHEAR FORCE NURSING TO CLEAN RIGHT SACRAL STAGE 3 INJURY WITH NORMAL SALINE DAILY AND PACK WITH IODOFORM PACKING STRIPS AND COVER WITH ALLEVYN FOAM DRESSING NURSING TO CLEAN LEFT HIP STAGE 2 INJURY WITH NORMAL SALINE DAILY APPLY PURACOL (COLLAGEN ) TO WOUND BASE COVER WITH ALLEVYN FOAM DRESSING Addendum: 11/17/19 at 1108 by Abhishek Siegel RN Amended: Links added.
[2019-11-17] MEDS ORDERED: POTASSIUM BICARBONATE/CIT AC 20 MEQ TABLET.EFF PO ONE (15:15)
--- NOTE | 2019-11-17 16:52 | Progress Note ---
DATE: CONSULTANTS: Dr. Alvarez with Infectious Disease. CHIEF COMPLAINT: Chills, hypothermia, and low urine output. SUBJECTIVE: The patient is seen, resting in bed, still reports feeling cold. He has a little more urine output today. But reports that he is not eating or drinking much. We will continue on IV fluids. PHYSICAL EXAMINATION: VITAL SIGNS: Temperature 96.7, pulse is 112, respirations 19, blood pressure 154/74, and pulse ox 100% on room air. GENERAL: No acute distress, chills. HEENT: Normocephalic and atraumatic. NECK: Supple. LUNGS: Clear to auscultation. CARDIOVASCULAR: Sinus tachy. NEUROLOGIC: Alert, awake, and oriented x3. MUSCULOSKELETAL: Paraplegic. Normal capillary refill. SKIN: Dry pressure ulcers, chronic on the sacrum and heel, healing. PSYCH: Calm. LABORATORY DATA: WBC 3.84, hemoglobin 10.1, hematocrit 32.1, and platelets 284. Sodium 132, potassium 3.2, creatinine 0.60, and glucose 89. Lactic acid 1.2. AST 44 and ALT 53. Cardiac enzymes x3 negative. Albumin 2.6. Urine culture is growing gram-negative bacillus. IMPRESSION: 1. Sepsis, likely due to urinary tract infection. Has a chronic suprapubic catheter. We will continue with Zosyn. Urine culture shows gram-negative bacillus. Questionable for colonizations. ID has been consulted for his history of complicated urinary tract infection. 2. Decreased urine output. CT abdomen shows suprapubic catheter is in place. He has had a bowel movement today and is having mildly improved urine output. 3. Hyponatremia. We will continue with IV fluids. Encourage to increase his p.o. intake. 4. Hypokalemia. We will replace. 5. Paraplegic with multiple sacral pressure ulcers. We will continue with wound care. 6. History of anxiety. We will continue his home dose of Klonopin. 7. Deep vein thrombosis prophylaxis. SCDs. No chemical anticoagulation due to chronic anemia. Dictated by JAREK Zambrano Yiching Erwin Downey MD MY/MODL /[id number]
[2019-11-18] VITALS (7 sets, daily range): BP systolic 109–149; BP diastolic 58–72
--- NOTE | 2019-11-18 01:42 | NUR ---
Repositioned.bed alarm on.suprapubic catheter in place.draining well.bed locked and in lowest position.phone and call light within reach.instructed to call for assistance as needed.
[2019-11-18] MEDS: PIPER-TAZ 3.375 GM 50 ML IV SCH ×2 (03:06→09:08)
--- NOTE | 2019-11-18 03:58 | NUR ---
Has c/o nausea.zofran 4 mg iv given.had bowel movement.
--- NOTE | 2019-11-18 05:00 | NUR ---
Resting in the bed.no nausea right now.
[2019-11-18] MEDS: ZINC SULFATE 220 MG CAP PO SCH (05:58)
--- NOTE | 2019-11-18 05:59 | NUR ---
Refused to take zinc sulphate po.
[2019-11-18 06:02] LABS: ANION GAP 13.2 mmol/L (8-16); BLOOD UREA NITROGEN 11 mg/dL (7-26); BUN/CREATININE RATIO 16 (6-25); CALCIUM 7.9 mg/dL (8.4-10.2); CARBON DIOXIDE 23 mmol/L (22-29); CHLORIDE 103 mmol/L (98-107); CREATININE, SERUM 0.67 mg/dL (0.72-1.25); EST GLOMERULAR FILTRATION RATE > 60 ML/MIN (60-); GLUCOSE 106 mg/dL (74-118); POTASSIUM 3.2 mmol/L (3.5-5.1); SODIUM 136 mmol/L (136-145)
--- NOTE | 2019-11-18 07:00 | NUR ---
Bed side shift report given to oncoming Rn.stable condition.
--- NOTE | 2019-11-18 07:03 | NUR ---
Received patient lying in bed with eyes closed. Respiration even and unlabored without SOB. Call light in reach.
--- NOTE | 2019-11-18 07:20 | Consultation ---
DATE OF CONSULTATION: 11/18/2019 INFECTIOUS DISEASE CONSULT REASON FOR CONSULTATION: Complicated urinary tract infection. Thank you, Dr. Downey, for asking me to see this patient. HISTORY OF PRESENT ILLNESS: The patient is a 79-year-old man referred for complicated urinary tract infection. He was admitted through the emergency department with altered mental status and cystitis with hematuria. He presented to the emergency department on 11/16/2019 with decreased urine output, fever and chills. The home health provider had noted decreased urine output and exchanged suprapubic catheter. Subsequently, patient developed symptoms. 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 PAST SURGICAL HISTORY: Craniotomy, cerebral arterial aneurysmal clipping, tonsillectomy, repair of ruptured thoracic aortic aneurysm, bilateral inguinal hernia repair, and suprapubic catheter placement. ALLERGIES: ADHESIVE TAPE. MEDICATIONS: See MAR. The current antibiotic is Zosyn 3.375g IV piggyback q.6 hours. IMMUNIZATION: Pneumococcal vaccination was prescribed. FAMILY HISTORY: Noncontributory. SOCIAL HISTORY: He quit smoking cigarettes in the . No alcohol or recreational drug use. REVIEW OF SYSTEMS: As per history of present illness. PHYSICAL EXAMINATION: GENERAL: No acute distress. VITAL SIGNS: T-max 98.1, pulse rate 129, respiratory rate 18, blood pressure 149/89, weight 140 pounds. HEENT: Normocephalic. There is no icterus or injection of conjunctivae. There is no ear or nasal discharge. Moist oral mucosa. No pharyngeal erythema or exudate. NECK: Supple. No JVD or meningismus. LUNGS: Clear to auscultation bilaterally. HEART: No normal S1 and S2. Tachycardic. ABDOMEN: Soft and nontender. Suprapubic catheter exit site is clean. EXTREMITIES: There is ulcer of the right ischial area as well as a small stage III ulcer of the sacrum and left ischial area. There is trace edema of the lower extremities. SKIN: Buttock and sacral ulcers as described above. No acute erythema. 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 Paraplegic. LABORATORY AND DIAGNOSTICS: 11/17/2019 WBC 3,840, hemoglobin 10.1, platelets 284,000, neutrophils 68.6, lymphocytes 19.8, monocytes 10.7, eosinophils 0.3, and basophils 0.3. BUN 11, creatinine 0.6. Urinalysis was abnormal with wbc's 21-50 and rbc's 11- 20. Urine culture is growing gram-negative bacillus. Blood culture showed no growth. CT scan of the abdomen and pelvis showed a suprapubic catheter in place within the bladder and large hiatal hernia. Brain CT scan showed no acute abnormality. IMPRESSION: 1. Complicated urinary tract infection due to gram-negative sandra. 2. Nonhealing ulcer of the right buttock. PLAN: 1. Await urine isolate identification and sensitivity. 2. I agree with current antibiotics. 3. Local wound care. MD JOSÉ Joseph/SHIVAM /[id number] MTDD
[2019-11-18] MEDS: CLONAZEPAM 0.5 MG TAB PO SCH (09:08)
[2019-11-18] MEDS: GABAPENTIN 300 MG CAP PO SCH ×2 (09:08→20:30)
--- NOTE | 2019-11-18 10:25 | NUR ---
Called and left a voicemail message to Dr. Doan for consultation. Addendum: 11/18/19 at 1041 by Ludmila Melton RN Wrong patient notes.
--- NOTE | 2019-11-18 10:59 | NUR ---
Report given to Kendra Corona. patient is transfer to room 205.
--- NOTE | 2019-11-18 11:13 | NUR ---
Notified Dr. Downey about the potassium level and ESBL urine. Orders given to change Zosyn to Merrem 500 mg Q6 and KCl 40 MEQ, PO X1. Patient is transported to room 205.
--- NOTE | 2019-11-18 11:30 | NUR ---
The pt. arrived to the unit via bed sleeping deeply and once he was settled he awakened and stated "I know you and immediately went back to sleep.
[2019-11-18] MEDS ORDERED: POTASSIUM CHLORIDE 20 MEQ TAB CR PO ONE (12:10)
--- NOTE | 2019-11-18 13:00 | NUR ---
The pt. awakened an use given his potassium that was ordered prior to transfer.
[2019-11-18] MEDS ORDERED: SODIUM CHLORIDE 0.9% 500ML 500 ML ONE (13:13)
[2019-11-18] MEDS ORDERED: SODIUM CHLORIDE 0.9% 500ML 500 ML IV ONE (14:00)
[2019-11-18 14:11] LABS: HEMATOCRIT 30.8 % (38.2-49.6); HEMOGLOBIN 9.6 g/dL (14.0-18.0); MEAN CORPUSCULAR HGB CONC 31.2 g/dL (31-35); MEAN CORPUSCULAR VOLUME 83.5 fL (81-99); PLATELET COUNT 251 x10e3/uL (140-360); RED BLOOD COUNT 3.69 x10e6/uL (4.3-5.7); RED CELL DISTRIBUTION WIDTH 15.9 % (11.7-14.4)
[2019-11-18 14:30] LABS: ANION GAP 11.2 mmol/L (8-16); BLOOD UREA NITROGEN 10 mg/dL (7-26); BUN/CREATININE RATIO 15 (6-25); CARBON DIOXIDE 24 mmol/L (22-29); CHLORIDE 101 mmol/L (98-107); CREATININE, SERUM 0.68 mg/dL (0.72-1.25); EST GLOMERULAR FILTRATION RATE > 60 ML/MIN (60-); GLUCOSE 107 mg/dL (74-118); POTASSIUM 3.2 mmol/L (3.5-5.1); SODIUM 133 mmol/L (136-145)
[2019-11-18] MEDS: SODIUM CHLORIDE 0.9% 1000ML 1,000 ML IV SCH (14:30)
[2019-11-18] MEDS: MEROPENEM 500MG/ NS 50ML 50 ML IV SCH ×3 (14:40→23:55)
[2019-11-18 15:40] LABS: EOSINOPHILS % (MANUAL) 3 % (0-7); LYMPHOCYTES % (MANUAL) 19 % (19-48); METAMYELOCYTES % (MANUAL) 3 % (0-0); MONOCYTES % (MANUAL) 9 % (3.4-9.0); MYELOCYTES % (MANUAL) 3 % (0-0); NEUTROPHILS % (MANUAL) 60 % (40-74)
[2019-11-18 15:41] LABS: ANISOCYTOSIS SLIGHT; HYPOCHROMASIA SLIGHT; PLATELET ESTIMATE ADEQUATE; PLATELET MORPHOLOGY COMMENT NORMAL; RBC MORPHOLOGY COMMENT NORMAL
--- NOTE | 2019-11-18 16:42 | NUR ---
Nutrition Intervention Note RD Recommendation(s) for Physician: -Continue regular diet -Recommend Ensure BID for added nutrition -Recommend Edgar BID for wound healing Plan of Care: RD following, monitoring for tolerance and adequacy Nutrition reason for involvement: Nutrition Risk Trigger (MST Score 2) and pressure ulcer RD Assessment: (10/18/2020) Pt is a 79 year old male admitted with altered mental status and UTI. Pt was sleeping at time of visit. Spoke to family members at bedside who reported pt had been eating <50% of meals for 1 week. Family member reported pt had lost weight, but was unsure of the amount or timeframe. Per weight history, pt had weighed 137 lbs in July 2019. Pt currently has a weight of 140 lbs in chart. No N/V or chewing/swallowing issues. Recommend Ensure Enlive for added nutrition and Edgar BID for wound healing. Will continue to monitor. Principal Problems/Diagnoses: altered mental status and UTI PMH: aortic aneurysm with bilateral lower extremity paralysis, anxiety, multiple sacral ulcers I/O: 1790/400 GI: last recorded BM 11/18 Skin: stage 2 left hip pressure ulcer and stage 3 sacral pressure ulcer Labs: (11/18/2019) Na 133, K 3.2, Ca 8.0 Meds: meropenem, zofran, NaCl, Ht: 68 inches Wt: 140 lbs BMI: 21.3 kg/m2 IBW: 154 lbs Malnutrition Evaluation (11/18/2019) The patient does not meet criteria for a specified degree of malnutrition at this time. Will re-evaluate at follow-up as appropriate. Energy intake: <50% of estimated energy requirements for >5 days Weight loss: No weight loss evident since July 2019 per weight history Fat loss: unable to evaluate Muscle loss: unable to evaluate Supporting Evidence: Fluid accumulation: trace edema of the lower extremities per MD note Functional Status: unable to evaluate Nutrition Prescription (Diet Order): Regular diet Estimated Nutritional Needs: 4552-8772 calories/day (25-35 kcal/kg CBW 76-95 g protein/day (1.2-1.5 g pro/kg CBW) Diet Adequacy: Not meeting calorie needs, Not meeting protein needs Tolerance: Tolerating PO Diet Education Needs Assessment: Diet education not indicated; patient on regular diet. Nutrition Care Level: moderate Nutrition Diagnosis: Inadequate energy intake related to decreased ability to consume sufficient energy secondary to decreased appetite as evidenced by pt eating <50% of meals for the past week per family members. Goal: Patient will meet 75-100% of estimated needs by follow up Progress: N/A Interventions: -General healthful diet, Commercial beverage Monitoring/Evaluation: -Total energy intake, Total protein intake, Liquid supplement, Weight change Signed: Misti Hernandez RD, LD
--- NOTE | 2019-11-18 18:38 | NUR ---
Dressing was changed and the pt. made comfortable.
--- NOTE | 2019-11-18 19:05 | NUR ---
Patient visited in room during nursing rounds. Patient alert and oriented x2 (i.e. pt tends to forget recent information) but easy to re-orient. Pt diapered due to incontinence and has suprapubic catheter. Pt is paraplegic and is on contact isolation for ESBL of urine. at bedside. Non-stageable sacral ulcer covered with Allevyn. Call hall within reach. Bed alarm active.
--- NOTE | 2019-11-18 23:59 | Progress Note ---
DATE: 11/18/2019 CONSULTANTS: Dr. Alvarez with Infectious Disease. CHIEF COMPLAINT: Chills, hypothermia, and low urine output. SUBJECTIVE: The patient was lethargic at time of assessment, the family reports, takes Klonopin as needed only likely due to morning dose of Klonopin and gabapentin. He was also noted to have low blood pressure, bolus of 500 mL was given and will start NS IV fluids since he is not eating much. PHYSICAL EXAMINATION: VITAL SIGNS: Temperature 97.6, pulse is 105, respirations 20, blood pressure 109/63, pulse ox 94% on room air. GENERAL: Lethargic, fatigued, and hypothermic. HEENT: Normocephalic, atraumatic. NECK: Supple. LUNGS: Clear to auscultation. CARDIOVASCULAR: Sinus tachy. NEUROLOGIC: Lethargic, but is oriented x3. MUSCULOSKELETAL: Paraplegic. Normal capillary refill. SKIN: Dry, pressure ulcers on sacrum and sacral area. PSYCH: Calm. LABORATORY DATA: Sodium 133, potassium 3.2, BUN 10, creatinine 0.68. Estimated GFR greater than 60. Blood sugar 107, calcium 8.0, hemoglobin 9.6, hematocrit 30.8 and platelet 251. Urine culture shows gram-negative rods and E. coli with ESBL. ASSESSMENT: 1. Sepsis due to complicated urinary tract infection. Has a chronic indwelling suprapubic catheter. Urine culture was positive for Escherichia coli with ESBL and Zosyn has been changed to Merrem. ID has been consulted for further recommendations. 2. Decreased urine output. CT abdomen shows a suprapubic catheter in place likely due to poor p.o. intake and infection. We will continue with IV fluid hydration. 3. Hyponatremia. Again, may be due to poor p.o. intake. We will continue with IV fluid hydration. 4. Hypokalemia. Replace and recheck. 5. Paraplegic with multiple sacral pressure ulcers. Wound Care has been consulted for daily wound care. 6. History of anxiety. We will change his Klonopin dose as needed only due to being overly sedated. 7. Deep venous thrombosis prophylaxis. SCDs. No chemical anticoagulation due to chronic anemia. PLAN: Continue with Merrem and await on ID for antibiotics recommendations. Dictated by JAREK Zambrano Yiching MD SREEDHAR Frausto/SIHVAM /[id number]
[2019-11-19] VITALS (8 sets, daily range): BP systolic 105–144; BP diastolic 59–98
[2019-11-19] MEDS: MEROPENEM 500MG/ NS 50ML 50 ML IV SCH ×4 (05:25→23:55)
[2019-11-19] MEDS: SODIUM CHLORIDE 0.9% 1000ML 1,000 ML IV SCH ×2 (05:25→17:10)
[2019-11-19] MEDS: ZINC SULFATE 220 MG CAP PO SCH (06:00)
--- NOTE | 2019-11-19 07:05 | NUR ---
RCD PT AT BED PT IS ALERT AND ORIENTED RESTING ON BED BED LOW AND LOCKED FAMILY AT BED SIDE CALL LIGHT IN REACH
[2019-11-19 08:47] LABS: ANION GAP 11.6 mmol/L (8-16); BLOOD UREA NITROGEN 10 mg/dL (7-26); BUN/CREATININE RATIO 16 (6-25); CALCIUM 7.9 mg/dL (8.4-10.2); CARBON DIOXIDE 23 mmol/L (22-29); CHLORIDE 106 mmol/L (98-107); CREATININE, SERUM 0.64 mg/dL (0.72-1.25); EST GLOMERULAR FILTRATION RATE > 60 ML/MIN (60-); GLUCOSE 97 mg/dL (74-118); POTASSIUM 3.6 mmol/L (3.5-5.1); SODIUM 137 mmol/L (136-145)
[2019-11-19] MEDS: GABAPENTIN 300 MG CAP PO SCH ×2 (09:00→21:00)
--- NOTE | 2019-11-19 09:00 | NUR ---
PT C/O SCROTUM,PENES AND LEGS SWOLLEN CHECKED PT AND NOTIFIED [employer] PROGRAMMING LEAD GOT NEW ORDERS
[2019-11-19] MEDS ORDERED: FUROSEMIDE INJ 10 MG/ML 4 ML VIAL IV ONE (09:15)
[2019-11-19] MEDS: ONDANSETRON HCL INJ 2MG/ML 2ML 2 MG/ML VIAL IV PRN (12:31)
[2019-11-19] MEDS: TRAMADOL HCL 50 MG TAB PO PRN (12:31)
--- NOTE | 2019-11-19 14:51 | Progress Note ---
DATE: 11/19/2019 CONSULTANTS: Dr. Alvarez with Infectious Disease doctor. CHIEF COMPLAINT: Chills, hypothermia, and low urine output. SUBJECTIVE: The patient was noted to have edema in the scrotum area and bilateral lower extremities. He was given Lasix IV x1 this morning with significant improvement. Has put out 1800 mL of urine in suprapubic bag. He is much more alert, awake, and oriented. Reports some nausea. PHYSICAL EXAMINATION: VITAL SIGNS: Temperature 97.2, pulse is 107, respirations 20, blood pressure 131/98, and pulse ox 94% on room air. GENERAL: No acute distress. HEENT: Normocephalic and atraumatic. NECK: Supple. LUNGS: Clear to auscultation. CARDIOVASCULAR: Sinus tachy. No chest pain. NEUROLOGIC: Alert, awake, and oriented x3. MUSCULOSKELETAL: Paraplegic. Normal capillary refill. Trace edema noted in the lower extremities. SKIN: Dry. Pressure ulcer stage IV in the sacrum. PSYCH: Calm. LABORATORY DATA: Sodium 137, potassium 3.6, creatinine 0.64, estimated GFR greater than 60, and calcium 7.9. IMPRESSION: 1. Sepsis due to complicated urinary tract infection. Has suprapubic catheter, which was changed prior to coming to the ER. Urine culture positive for Escherichia coli with ESBL and Pseudomonas A. Continue with Merrem and ID has been consulted for further recommendations. 2. Decreased urine output. CT abdomen shows suprapubic is in place. It has now improved. 1500 mL noted in the bag. 3. Hyponatremia. Improved with IV and p.o. intake. 4. Hypokalemia. Replaced. 5. Paraplegia with multiple sacral pressure ulcers. Wound Care has been consulted for daily wound care. 6. History of anxiety. Continue Klonopin as needed. 7. Sinus tachycardia. Likely due to anxiety versus dehydration. We will continue to monitor. 8. Deep vein thrombosis prophylaxis. SCDs. 9. Disposition is to home with ID recommendations for antibiotics. Dictated by JAREK Zambrano Zoilaching Erwin Downey MD MY/MODL /[id number]
--- NOTE | 2019-11-19 18:00 | NUR ---
DRESSING CHAGED ON THE BACK PACKING REMOVED AND APPLIED ANOTHER PACKING
--- NOTE | 2019-11-19 19:13 | NUR ---
PT RESTING ON BED BED SIDE REPORT GIVEN TO ONCOMING NURSE
[2019-11-20] VITALS (7 sets, daily range): BP systolic 120–176; BP diastolic 64–85
[2019-11-20] MEDS: ZINC SULFATE 220 MG CAP PO SCH (05:44)
[2019-11-20] MEDS: MEROPENEM 500MG/ NS 50ML 50 ML IV SCH ×3 (05:44→17:26)
[2019-11-20] MEDS: SODIUM CHLORIDE 0.9% 1000ML 1,000 ML IV SCH ×2 (05:45→21:00)
--- NOTE | 2019-11-20 07:10 | NUR ---
RCD PT AT BED PT IS ALERT AND ORIENTED RESTING ON BED FAMILY AT BED SIDE BED LOW AND LOCKED CALL LIGHT IN REACH
[2019-11-20] MEDS: GABAPENTIN 300 MG CAP PO SCH ×2 (08:55→21:00)
--- NOTE | 2019-11-20 14:00 | NUR ---
DRESSING CHANGED ON THE LOWER SACRUM
[2019-11-20] MEDS ORDERED: FUROSEMIDE INJ 10 MG/ML 4 ML VIAL IV ONE (15:00)
--- NOTE | 2019-11-20 16:41 | Progress Note ---
DATE: 11/20/2019 CONSULTANTS: Dr. Alvarez with Infectious Disease. CHIEF COMPLAINT: Chills, hypothermia, and low urine output. SUBJECTIVE: The patient with improved mentation. Scrotum edema is improving, but still present. We will give another dose of Lasix IV x1. He is also noted to be a little short of breath. We will order a chest x-ray. PHYSICAL EXAMINATION: VITAL SIGNS: Temperature 96.8, pulse is 100, respirations 17, blood pressure is 128/64, and pulse ox is 92% on room air. GENERAL: No acute distress, fatigued, generalized weakness. HEENT: Normocephalic, atraumatic. NECK: Supple. LUNGS: Clear to auscultation with decreased in the lower lobes. CARDIOVASCULAR: Sinus tachy. No chest pain. Shortness of breath. NEUROLOGIC: Alert, awake, and oriented x3. MUSCULOSKELETAL: Paraplegic. Normal capillary refill. SKIN: Dry. Pressure ulcer in the sacrum. PSYCH: Calm. IMPRESSION: 1. Sepsis due to complicated urinary tract infection. Has a suprapubic catheter with good placement. It was changed prior to coming into ER. Urine culture positive for Escherichia coli with extended-spectrum beta-lactamases and Pseudomonas aeruginosa. We will continue on Merrem per ID recommendations. 2. Decreased urine output. CT abdomen shows suprapubic is in place. Likely due to poor p.o. intake. We will give light hydration. 3. Hyponatremia. Now improved. Encouraged p.o. intake and continue with light hydration. 4. Hypokalemia. Replaced. 5. Paraplegia with multiple sacral pressure ulcers due to bed-bound. Wound Care has been consulted for daily wound care. 6. History of anxiety. Continue Klonopin as needed. 7. Mild shortness of breath with sinus tachycardia. Likely due to dehydration versus anxiety. We will check chest x-ray to check for pulmonary edema/pneumonia. 8. Deep vein thrombosis prophylaxis. We will start heparin. Dictated by JAREK Zambrano Zoilaching Erwin Downey MD MY/MODL /[id number]
--- NOTE | 2019-11-20 16:51 | Diagnostic Imaging Report ---
EXAMINATION: CHEST SINGLE (PORTABLE) COMPARISON: Chest x-ray 11/16/2019, CT abdomen/pelvis 11/16/2019, chest x-ray 07/04/2019 INDICATION: Shortness of breath ^sob ^[id number] ^[id number] DISCUSSION: Frontal view of the chest obtained at 1609 hours. HEART AND MEDIASTINUM: The heart is enlarged. The aortic arch is enlarged and tortuous and stable in morphology LINES: None. LUNGS/PLEURA: Baseline pulmonary hyperinflation suggestive of COPD. Stable eventration of the left diaphragm and large hiatal hernia containing stomach. Stable left pleural effusion and atelectasis. New right pleural effusion. No pneumothorax. BONES AND SOFT TISSUES: No focal osseous lesion. Surgical clips in the right axilla are stable. IMPRESSION: New right pleural effusion. Stable left pleural effusion and atelectasis. Large hiatal hernia containing stomach. Stable enlarged aortic arch suggestive of aneurysmal dilatation. Signed by: Dr. Cori Riddle MD on 11/20/2019 4:48 PM
--- NOTE | 2019-11-20 17:35 | NUR ---
RECEIVED PT IN BED AOX2 RESPIRATIONS ARE EVEN AND UNLABORED SUPRA PUBIC CATHETER DRAINING CLEAR YELLOW URINE .TELE #24 SHOWS SR RT FA 20G NS RUNNING AT 75 CC/HR.UNSTABLE WOUND AT SACRUM .CALL LIGHT WITH IN REACH .CONTINUE TO MONITOR
--- NOTE | 2019-11-20 18:39 | NUR ---
PT RESTING ON BED BED SIDE REPORT GIVEN TO ONCOMING NURSE
--- NOTE | 2019-11-20 19:55 | NUR ---
RECEIVED PT IN BED AOX3 RESPIRATIONS ARE EVEN AND UNLABORED SUPRA PUBIC CATHETER DRAINING CLEAR YELLOW URINE .TELE #24 SHOWS SR RT FA 20G NS RUNNING AT 75 CC/HR.UNSTABLE WOUND AT SACRUM .CALL LIGHT WITH IN REACH .CONTINUE TO MONITOR Addendum: 11/21/19 at 0510 by Montrell Nolasco RN WRONG PT
[2019-11-20] MEDS: HEPARIN SOD (PORCINE) 5,000 UNIT/ML VIAL SC SCH (21:00)
[2019-11-21] VITALS (7 sets, daily range): BP systolic 131–166; BP diastolic 68–83
[2019-11-21] MEDS: MEROPENEM 500MG/ NS 50ML 50 ML IV SCH ×4 (00:13→18:40)
[2019-11-21] MEDS ORDERED: ALBUTEROL/IPRATROPIUM 3 ML NEB NEB PRN (05:00)
--- NOTE | 2019-11-21 05:11 | NUR ---
PT C/O BREATHING DIFFICULTY AND CALLED DR KEANE AND GOT THE ORDER TO GIVE BREATHING TX .CONTINUE TO MONITOR
[2019-11-21] MEDS: ZINC SULFATE 220 MG CAP PO SCH (06:00)
--- NOTE | 2019-11-21 07:32 | NUR ---
BEDSIDE REPORT GIVEN TO THE ONCOMING NURSE
[2019-11-21] MEDS: GABAPENTIN 300 MG CAP PO SCH ×2 (09:30→20:57)
[2019-11-21] MEDS: HEPARIN SOD (PORCINE) 5,000 UNIT/ML VIAL SC SCH ×2 (09:50→21:30)
[2019-11-21] MEDS: SODIUM CHLORIDE 0.9% 1000ML 1,000 ML IV SCH (09:55)
[2019-11-21] MEDS ORDERED: AMIKACIN SULFATE 250 MG/ML 2ML VIAL IV ONE (10:45)
[2019-11-21] MEDS ORDERED: AMIKACIN SULFATE 500 MG in SODIUM CHLORIDE 0.9% 100 ML IV ONE (12:00)
[2019-11-21] MEDS ORDERED: FUROSEMIDE INJ 10 MG/ML 4 ML VIAL IV ONE (14:00)
[2019-11-21] MEDS ORDERED: CALCIUM CHLORIDE 13.6 MEQ in SODIUM CHLORIDE 0.9% 100 ML 100 ML IV ONE (14:30)
[2019-11-21 16:37] LABS: ANION GAP 9.1 mmol/L (8-16); BLOOD UREA NITROGEN 12 mg/dL (7-26); BUN/CREATININE RATIO 21 (6-25); CALCIUM 7.9 mg/dL (8.4-10.2); CARBON DIOXIDE 27 mmol/L (22-29); CHLORIDE 100 mmol/L (98-107); CREATININE, SERUM 0.58 mg/dL (0.72-1.25); EST GLOMERULAR FILTRATION RATE > 60 ML/MIN (60-); GLUCOSE 121 mg/dL (74-118); POTASSIUM 3.1 mmol/L (3.5-5.1); SODIUM 133 mmol/L (136-145)
--- NOTE | 2019-11-21 18:01 | Progress Note ---
DATE: 11/21/2019 CONSULTANTS: Dr. Alvarez with Infectious Disease. CHIEF COMPLAINT: Chills, hypothermia, and low urine output. SUBJECTIVE: The patient reports improving shortness of breath, status post nebulizer treatment and IV Lasix. Today, complaining of jerking movements, unable to sleep during the night due to this muscle contractions in the leg and upper body. We will check BMP for any electrolyte imbalance. PHYSICAL EXAMINATION: VITAL SIGNS: Temperature 98.4, pulse is 107, respirations 20, blood pressure 140/83, pulse ox is 99% on 2 L of oxygen. GENERAL: No acute distress. Fatigue and generalized weakness at baseline. HEENT: Normocephalic, atraumatic. NECK: Supple. LUNGS: Clear to auscultation with decreased breath sounds in the lower lobes. CARDIOVASCULAR: Sinus tachy. No chest pain. NEUROLOGIC: Alert, awake, and oriented x3. MUSCULOSKELETAL: Paraplegic. Normal capillary refill. SKIN: Dry with stage IV pressure ulcers. PSYCH: Calm. IMAGING DATA: Chest x-ray shows new right pleural effusion, stable left pleural effusion and atelectasis, large hiatal hernia containing stomach, stable and large aortic arch suggestive of aneurysmal dilation. Venous Doppler of the lower extremity was negative for acute DVT. IMPRESSION: 1. Sepsis due to complicated urinary tract infection. Recent change of suprapubic catheter. Continue with Merrem and was given x1. Per ID. Urine culture positive for Escherichia coli with extended-spectrum beta-lactamases and Pseudomonas aeruginosa. 2. Decreased urine output. Likely due to poor p.o. intake. 3. Hyponatremia. Now improved with IV fluids. 4. Hypokalemia. Replaced. 5. Dyspnea. Chest x-ray shows pleural effusion. We will give IV Lasix and treat with nebs. 6. Paraplegia with multiple sacral pressure ulcers. Wound Care consulted for daily wound care. 7. History of anxiety. Continue Klonopin as needed. 8. Deep vein thrombosis prophylaxis. Heparin. PLAN: Plan is to continue current treatment, we will repeat BMP stat and replace electrolytes as needed. We will give one dose of Lasix for the shortness of breath and pleural effusion and recheck chest x-ray tomorrow. Dictated by Dannielle Santiago, JAREK Yiching MD SREEDHAR Frausto/SHIVAM /[id number]
[2019-11-21] MEDS ORDERED: POTASSIUM CHLORIDE 20 MEQ TAB CR PO ONE (19:35)
--- NOTE | 2019-11-21 19:37 | NUR ---
HEAD OF HISTORY notified of potassium 3.1 New orders received
[2019-11-21] MEDS: CLONAZEPAM 0.5 MG TAB PO PRN (20:57)
[2019-11-22] VITALS (8 sets, daily range): BP systolic 113–151; BP diastolic 60–83
[2019-11-22] MEDS: MEROPENEM 500MG/ NS 50ML 50 ML IV SCH ×5 (00:28→23:16)
[2019-11-22] MEDS: TRAMADOL HCL 50 MG TAB PO PRN ×2 (01:10→21:30)
[2019-11-22] MEDS: ZINC SULFATE 220 MG CAP PO SCH (05:06)
[2019-11-22] MEDS ORDERED: SODIUM CHLORIDE 0.9% 250ML 250 ML ONE (05:09)
[2019-11-22] MEDS: GABAPENTIN 300 MG CAP PO SCH ×2 (09:00→21:30)
[2019-11-22] MEDS: HEPARIN SOD (PORCINE) 5,000 UNIT/ML VIAL SC SCH ×2 (09:00→21:40)
[2019-11-22] MEDS ORDERED: AMIKACIN SULFATE 250 MG/ML 2ML VIAL IV ONE (12:00)
[2019-11-22] MEDS ORDERED: SODIUM CHLORIDE 0.9% IV ONE (12:30)
[2019-11-22] MEDS ORDERED: AMIKACIN SULFATE IV ONE (12:30)
--- NOTE | 2019-11-22 12:51 | Diagnostic Imaging Report ---
Exam: KUB - 2 views Indication: IVC filter position. Comparison: CT abdomen and pelvis of 11/16/2019 Findings: IVC filter projects over the expected position of the infrarenal inferior vena cava with mild apex right tilt. There is gaseous distention of the rectum and sigmoid colon measuring up to 10 cm maximum diameter. This is increased from the prior CT of 11/16/2019. No free air. Phleboliths in the pelvis. Degenerative changes of the visualized spine. Severe degenerative changes of both hip joints right greater than left. Old posterior medical deformity of the left proximal femur. Atherosclerotic arterial calcifications. Impression: IVC filter projects over the expected position in the infrarenal IVC with mild apex right tilt. Increasing gaseous dilation of sigmoid colon. Radiographic findings alone are concerning for sigmoid volvulus, however CT of 11/16/2019 demonstrated a similar albeit slightly lesser extent of dilation in the absence of volvulus. Signed by: Raúl Sosa MD on 11/22/2019 12:47 PM
[2019-11-22] MEDS ORDERED: CALCIUM CHLORIDE 13.6 MEQ in SODIUM CHLORIDE 0.9% 100 ML 100 ML IV ONE (14:00)
[2019-11-22] MEDS: CLONAZEPAM 0.5 MG TAB PO PRN (15:20)
[2019-11-22] MEDS ORDERED: FUROSEMIDE INJ 10 MG/ML 4 ML VIAL IV ONE (17:00)
--- NOTE | 2019-11-22 17:01 | NUR ---
NESTOR Swanson notified of BNP level 3781. New orders received
--- NOTE | 2019-11-22 17:36 | Progress Note ---
DATE: 11/22/2019 AGE: A 79-year-old male. CONSULTANTS: 1. Dr. Alvarez with Infectious Disease. 2. Dr. Nicholson with Cardiology. CHIEF COMPLAINT: Chills, hypothermia, and low urine output. SUBJECTIVE: The patient reports feeling a little bit better, but noted to have still some shortness of breath, on O2 via nasal cannula 3 L. We will continue with IV Lasix to help with fluid overload. PHYSICAL EXAMINATION: VITAL SIGNS: Temperature 97.7, pulse is 100, respirations 22, blood pressure 135/73, pulse ox is 93% on 3 L of oxygen. GENERAL: No acute distress. Fatigue and generalized weakness. HEENT: Normocephalic, atraumatic. NECK: Supple. LUNGS: Decreased breath sounds with mild wheezing in the lower lobes. CARDIOVASCULAR: Sinus tachy. No chest pain. NEUROLOGIC: Alert, awake, and oriented x3. MUSCULOSKELETAL: Paraplegic. Normal capillary refill. SKIN: Dry with stage IV pressure ulcers on sacrum and heel. PSYCH: Calm. : Suprapubic catheter in place. LABORATORY DATA: Sodium 133, potassium 3.1, creatinine 0.58, calcium 7.9, magnesium 1.6. KUB shows IVC filter projects over the expected position and infrarenal IVC with mild apex, right tilt. He has increasing gaseous dilation at the sigmoid colon. IMPRESSION: 1. Sepsis due to complicated urinary tract infection. We will continue with Merrem and Amexine was given IV per ID. Urine culture is positive for Escherichia coli with extended-spectrum beta-lactamase and Pseudomonas aeruginosa. 2. Decreased urine output. Likely due to poor p.o. intake. 3. Hyponatremia. We will hold off on IV fluids. 4. Hypokalemia, replaced. 5. Hypocalcemia, replaced. 6. Dyspnea due to some pleural effusion. We will give another Lasix and check echo to rule out congestive heart failure. 7. Paraplegia with multiple sacral and pressure ulcers. Wound Care has been consulted for daily wound care. 8. History of anxiety. Continue Klonopin as needed. 9. History of deep venous thrombosis, status post IVC filter [address] Nicholson has been consulted to evaluate IVC filter and deep venous thrombosis. 10. Deep venous thrombosis prophylaxis. The patient is on heparin subcu. PLAN: Plan is to continue with current treatment. We will check echo and give Lasix x1. We will check BNP to rule out congestive heart failure. Replace electrolytes and repeat chest x-ray. Dictated by Dannielle aSntiago, ANP Zoilaching MD SREEDHAR Frausto/SHIVAM /[id number]
--- NOTE | 2019-11-22 20:26 | Consultation ---
DATE OF CONSULTATION: 11/22/2019 Cardiology Consultation CONSULTING PHYSICIAN: Jeremías Burleson MD, Interventional Cardiology. REASON FOR CONSULTATION: Venous thromboembolic disease. HISTORY OF PRESENT ILLNESS: A 79-year-old man with failure to thrive, quadriparesis following aortic aneurysm, now status post repair, history of left lower extremity DVT for which he underwent remote IVC filter placement, presents with recurrent urinary tract infection and failure to thrive. He is also noted to have increasing lower extremity edema over the last several weeks. He denies current chest pain or shortness of breath. He has no other complaints. Family is at bedside. PAST MEDICAL HISTORY: As per HPI. SOCIAL HISTORY: Negative x3. FAMILY HISTORY: Noncontributory. REVIEW OF SYSTEMS: A 12-system review limited by patient's confused state. PHYSICAL EXAMINATION: VITAL SIGNS: Reviewed and stable. GENERAL: In no acute distress, confused, chronically ill-appearing. NECK: With distended jugular vein. CHEST: Decreased breath sounds in bilateral bases. CARDIOVASCULAR: Regular rate and rhythm, normal S1, S2. Systolic ejection murmur 1/6. ABDOMEN: Soft. Bowel sounds positive. EXTREMITIES: With 1+ edema, hypotrophic extremities. MEDICATIONS AND LABS: Have been reviewed. 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 Edema to lower extremity seems symmetric. Echocardiogram and BNP have been ordered and pending. He is undergoing treatment for urinary tract infection. May benefit from diuretic therapy. Further recommendations will follow once additional studies available. At this point, recommend against anticoagulation given absence of acute evidence of vein thrombosis. Jeremías Burleson MD AFV/MODL /[id number]
[2019-11-23] VITALS (8 sets, daily range): BP systolic 108–137; BP diastolic 57–62
[2019-11-23] MEDS: ZINC SULFATE 220 MG CAP PO SCH (05:18)
[2019-11-23] MEDS: MEROPENEM 500MG/ NS 50ML 50 ML IV SCH ×4 (05:18→23:43)
[2019-11-23 05:50] LABS: ANION GAP 12.2 mmol/L (8-16); BLOOD UREA NITROGEN 15 mg/dL (7-26); BUN/CREATININE RATIO 26 (6-25); CALCIUM 8.6 mg/dL (8.4-10.2); CARBON DIOXIDE 30 mmol/L (22-29); CHLORIDE 99 mmol/L (98-107); CREATININE, SERUM 0.58 mg/dL (0.72-1.25); EST GLOMERULAR FILTRATION RATE > 60 ML/MIN (60-); GLUCOSE 98 mg/dL (74-118); POTASSIUM 3.2 mmol/L (3.5-5.1); SODIUM 138 mmol/L (136-145)
[2019-11-23] MEDS ORDERED: FUROSEMIDE INJ 10 MG/ML 4 ML VIAL IV SCH (09:00)
[2019-11-23] MEDS: POTASSIUM CHLORIDE 10MEQ EA PO SCH (09:21)
[2019-11-23] MEDS: GABAPENTIN 300 MG CAP PO SCH ×2 (09:21→20:49)
[2019-11-23] MEDS: HEPARIN SOD (PORCINE) 5,000 UNIT/ML VIAL SC SCH ×2 (09:21→21:18)
[2019-11-23] MEDS ORDERED: AMIKACIN SULFATE 250 MG/ML 2ML VIAL IV ONE (09:30)
[2019-11-23] MEDS ORDERED: POTASSIUM CHLORIDE 10MEQ EA PO ONE (10:30)
[2019-11-23] MEDS ORDERED: AMIKACIN SULFATE IV ONE (11:00)
[2019-11-23] MEDS ORDERED: SODIUM CHLORIDE 0.9% IV ONE (11:00)
--- NOTE | 2019-11-23 11:34 | Progress Note ---
DATE: Cardiology Progress Note SUBJECTIVE: Confused and sleepy. Family at bedside. OBJECTIVE: VITAL SIGNS: Temperature of 96.9, heart rate 89, blood pressure 126/58, respiratory rate 20, and O2 saturation 99%. BMI 21.2. GENERAL: In no acute distress. Alert. NECK: No JVD. CHEST: Clear to auscultation. CARDIOVASCULAR: Regular rate and rhythm. Normal S1 and S2. ABDOMEN: Soft. Bowel sounds positive. EXTREMITIES: Lower extremities, 1+ edema bilaterally. CARDIOVASCULAR MEDICATIONS: Reviewed. Furosemide 20 mg daily and potassium chloride 20 mEq daily. STUDIES: Reviewed. Potassium 3.2 and creatinine 0.58. Hemoglobin 9.6, white blood cells 3.4, and platelets 251. INR 1.02. AST 44, ALT 53, and alkaline phosphatase 135. ASSESSMENT AND PLAN: 1. 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 2. Urinary tract infection, recurrent. 3. Aortic aneurysm, status post repair. 4. Quadriparesis. 5. Elevated BNP and edema, concerning for heart failure, acute decompensated. Echocardiogram ordered and pending. RECOMMENDATION: Up titrate diuretics, as edema continues to worsen when discussing with family, now with edema to buttock, genital area seems to be worsening too. We will up titrate furosemide to 40 mg b.i.d. IV and spironolactone 25 mg daily. Continue replacement of electrolytes as needed. Pending echocardiogram. Continue rest of cardiovascular medications. MD JAVY Bacon/SHIVAM /[id number]
--- NOTE | 2019-11-23 13:09 | NUR ---
Nutrition Intervention Note RD Recommendation(s) for Physician: -Continue regular diet -Recommend Ensure BID for added nutrition -Recommend Edgar BID for wound healing Plan of Care: RD following, monitoring for tolerance and adequacy Nutrition reason for involvement: f/u RD Assessment: 10/23: Follow up: Pt was seen resting in bed, finishing his breakfast. His was at his bedside. The pt reported that his appetite is so, so. Pt has been completing 75-100% of his meals, the pt also has 0% recorded for some meals as well. The pt did have Ensure next to his bed, encouraged pt to consume this as tolerated. The reported she would like the pt to have a consistent breakfast everyday, will personally place order for the next couple of days within . Also encouraged to call kitchen to ensure the pt is consuming what he likes. Echo is pending. Will continue to monitor. (10/18/2020) Pt is a 79 year old male admitted with altered mental status and UTI. Pt was sleeping at time of visit. Spoke to family members at bedside who reported pt had been eating <50% of meals for 1 week. Family member reported pt had lost weight, but was unsure of the amount or timeframe. Per weight history, pt had weighed 137 lbs in July 2019. Pt currently has a weight of 140 lbs in chart. No N/V or chewing/swallowing issues. Recommend Ensure Enlive for added nutrition and Edgar BID for wound healing. Will continue to monitor. Principal Problems/Diagnoses: altered mental status and UTI PMH: aortic aneurysm with bilateral lower extremity paralysis, anxiety, multiple sacral ulcers I/O: 610/2150 GI: LBM: 11/21, Abd: soft, round Skin: stage 2 left hip pressure ulcer and stage 3 sacral pressure ulcer Labs: 11/23: K 3.2, CO2 30 (11/18/2019) Na 133, K 3.2, Ca 8.0 Meds: meropenem, zofran, NaCl, KCL given, gabapentin, lasix Ht: 68 inches Wt: 140 lbs BMI: 21.3 kg/m2 IBW: 154 lbs Malnutrition Evaluation (11/18/2019) The patient does not meet criteria for a specified degree of malnutrition at this time. Will re-evaluate at follow-up as appropriate. Energy intake: <50% of estimated energy requirements for >5 days Weight loss: No weight loss evident since July 2019 per weight history Fat loss: unable to evaluate Muscle loss: unable to evaluate Supporting Evidence: Fluid accumulation: trace edema of the lower extremities per MD note Functional Status: unable to evaluate Nutrition Prescription (Diet Order): Regular diet Estimated Nutritional Needs: 0466-6980 calories/day (25-35 kcal/kg CBW 76-95 g protein/day (1.2-1.5 g pro/kg CBW) Diet Adequacy: Not meeting calorie needs, Not meeting protein needs Tolerance: Tolerating PO Diet Education Needs Assessment: Diet education not indicated; patient on regular diet. Nutrition Care Level: moderate Nutrition Diagnosis: Inadequate energy intake related to decreased ability to consume sufficient energy secondary to decreased appetite as evidenced by pt eating <50% of meals for the past week per family members. Goal: Patient will meet 75-100% of estimated needs by follow up Progress: progressing Interventions: -General healthful diet, Commercial beverage Monitoring/Evaluation: -Total energy intake, Total protein intake, Liquid supplement, Weight change Signed: Destinee Hernandze RD, ANDREI
--- NOTE | 2019-11-23 13:36 | Consultation ---
DATE OF CONSULTATION: 11/23/2019 HISTORY OF PRESENT ILLNESS: The patient is a 79-year-old male admitted to the hospital for urinary tract infection. He was having abdominal x-ray to check placement of a vena cava filter when reported as dilated colon suggestive of possible sigmoid colon volvulus. The patient denies any abdominal pain. He has had no nausea or vomiting. He is tolerating diet fairly well. He is having bowel movements. My review of the x-ray appears mildly dilated probable sigmoid colon, but does not appear to be volvulus. PAST MEDICAL HISTORY: Significant for paraplegia secondary to previous surgery for abdominal aortic aneurysm. He has a vena caval filter in place. He has had previous tonsillectomy and bilateral inguinal hernia repair, previous sacral ulcers. MEDICATIONS: Listed in the chart. ALLERGIES: HE HAS NO KNOWN ALLERGIES. FAMILY HISTORY: Noncontributory. SOCIAL HISTORY: The patient lives with his . He does not smoke cigarettes or use alcohol. REVIEW OF SYSTEMS: Significant for recent fever and weakness. There are no GI symptoms. PHYSICAL EXAMINATION: GENERAL: The patient is awake and alert. VITAL SIGNS: Normal. HEENT: His sclerae are not icteric. NECK: Has no masses. LUNGS: Equal breath sounds are clear. CARDIAC: Regular rate and rhythm. ABDOMEN: Soft. There is no tenderness, no mass, no distention. No organomegaly. EXTREMITIES: Reveals some edema around the ankles and feet, and were atrophic. ASSESSMENT: A 79-year-old male with no findings suggestive of sigmoid volvulus or intestinal obstruction. No intervention is needed. He may have diet as tolerated. Thank you for asking me to see Mr. Brambila. MD NICO Marley/SHIVAM /[id number]
[2019-11-23] MEDS: FUROSEMIDE INJ 10 MG/ML 4 ML VIAL IV SCH (16:14)
--- NOTE | 2019-11-23 19:48 | Progress Note ---
DATE: 11/23/2019 CONSULTANTS: 1. Dr. Alvarez with Infectious Disease. 2. Dr. Nicholson with Cardiology. 3. Dr. Vasquez with Surgery. CHIEF COMPLAINT: Chills and hypothermia due to urinary tract infection. SUBJECTIVE: The patient is resting in bed with no acute distress. Reports shortness of breath is improving. However, he still has edema in the scrotal area and bilateral lower extremities. We will continue with Lasix b.i.d. PHYSICAL EXAMINATION: VITAL SIGNS: Temperature is 97.5, pulse is 99, respirations 20, blood pressure 137/62, pulse ox is 98% on 3 L of oxygen. GENERAL: Fatigue and generalized weakness. HEENT: Normocephalic, atraumatic. NECK: Supple. LUNGS: Decreased breath sounds. CARDIOVASCULAR: Regular rate and rhythm. NEUROLOGIC: Alert, awake, and oriented x3. MUSCULOSKELETAL: Paraplegic. Normal capillary refill. Trace edema in the lower extremities. SKIN: Dry with stage IV pressure ulcer on the sacrum and has also healed pressure ulcers. PSYCH: Calm. : Suprapubic catheter in place. LABORATORY DATA: Sodium is 138, potassium 3.2, CO2 of 30, creatinine 0.58. Estimated GFR is greater than 60. Magnesium is 1.6. BNP is 3781. IMPRESSION: 1. Sepsis due to complicated urinary tract infection. We will continue on Merrem and Amexine was per ID. Urine culture is positive for Escherichia coli with extended-spectrum beta-lactamase and Pseudomonas aeruginosa. 2. Decreased urine output, likely due to poor p.o. intake. Kidney function is normal. 3. Hyponatremia, now resolved. 4. Hypokalemia, replaced. 5. Dyspnea due to some pleural effusion. We will continue with Lasix IV b.i.d. Echo is pending. BNP is 3780. 6. Paraplegia with multiple sacral and pressure ulcers. Wound Care has been consulted for daily wound care. 7. History of anxiety. Continue Klonopin as needed. 8. History of deep venous thrombosis, status post IVC filter [address] Nicholson on the case. 9. 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 Surgical consult to evaluate. No surgical intervention needed as he is moving his bowels and the eating with no nausea or vomiting. 10. Deep venous thrombosis prophylaxis. The patient is on heparin and subcu. PLAN: Plan is to continue with aggressive diuresis. Await on echo results. Physical therapy to evaluate and treat. Dictated by JAREK Zambrano Chrissy Downey MD MY/MODL /[id number] Seen and examined on 11/23/2019, updated at the bedside. Agree with the findings and plan as documented by JAREK Santiago. KAMILLED
[2019-11-24] MEDS: MEROPENEM 500MG/ NS 50ML 50 ML IV SCH ×3 (05:36→17:16)
[2019-11-24] MEDS: ZINC SULFATE 220 MG CAP PO SCH (05:36)
[2019-11-24 05:53] LABS: BLOOD UREA NITROGEN 17 mg/dL (7-26); BUN/CREATININE RATIO 31 (6-25); CALCIUM 8.7 mg/dL (8.4-10.2); CARBON DIOXIDE 36 mmol/L (22-29); CHLORIDE 95 mmol/L (98-107); CREATININE, SERUM 0.55 mg/dL (0.72-1.25); EST GLOMERULAR FILTRATION RATE > 60 ML/MIN (60-); GLUCOSE 95 mg/dL (74-118); SODIUM 140 mmol/L (136-145)
[2019-11-24] MEDS: ONDANSETRON HCL INJ 2MG/ML 2ML 2 MG/ML VIAL IV PRN (07:44)
[2019-11-24 07:50] VITALS: BP 125/60
[2019-11-24] MEDS ORDERED: POTASSIUM CHLORIDE 10MEQ EA PO ONE ×2 (07:50→12:00)
[2019-11-24 07:57] VITALS: BP 125/60
[2019-11-24] MEDS: FUROSEMIDE INJ 10 MG/ML 4 ML VIAL IV SCH ×2 (08:59→17:16)
[2019-11-24] MEDS: GABAPENTIN 300 MG CAP PO SCH ×2 (08:59→20:38)
[2019-11-24] MEDS: POTASSIUM CHLORIDE 10MEQ EA PO SCH (08:59)
[2019-11-24] MEDS: SPIRONOLACTONE 25 MG TAB PO SCH (08:59)
[2019-11-24] MEDS: HEPARIN SOD (PORCINE) 5,000 UNIT/ML VIAL SC SCH ×2 (09:00→22:28)
[2019-11-24 11:31] VITALS: BP 119/56
[2019-11-24] MEDS ORDERED: ONDANSETRON HCL 4 MG ORAL DISINTEGRATING TAB PO PRN (13:30)
--- NOTE | 2019-11-24 14:56 | Progress Note ---
DATE: 11/24/2019 CONSULTANTS: 1. Dr. Alvarez with Infectious Disease. 2. Dr. Nicholson with Cardiology. 3. Dr. Vasquez with Surgery. CHIEF COMPLAINT: Chills and hypothermia due to urinary tract infection. SUBJECTIVE: The patient is resting in bed with no acute distress. Shortness of breath is improving, now on 2 L of O2. His swelling is mildly improved, but still putting out lots of urine. PHYSICAL EXAMINATION: VITAL SIGNS: Temperature 96.9, pulse is 105, respirations 20, blood pressure 119/56, and pulse ox 95% on 2 L of oxygen. GENERAL: Fatigue and generalized weakness. HEENT: Normocephalic and atraumatic. NECK: Supple. LUNGS: Decreased breath sounds. CARDIOVASCULAR: Regular rate and rhythm. NEUROLOGIC: Alert, awake, and oriented x3. MUSCULOSKELETAL: Paraplegic. Normal capillary refill. Trace edema in the lower extremities. SKIN: Dry with stage IV pressure ulcer on the sacrum and also heels. PSYCH: Calm. : Suprapubic catheter in place. LABORATORY DATA: Sodium 140, potassium 3.0, BUN is 17, creatinine is 0.55, and estimated GFR is greater than 60. IMPRESSION: 1. Sepsis due to complicated urinary tract infection. We will continue on Merrem. Urine culture positive with Escherichia coli with extended-spectrum beta- lactamases. 2. Hyponatremia, now resolved. 3. Hypokalemia, replaced. 4. Dyspnea due to some pleural effusion. We will continue with IV Lasix b.i.d. Echo is pending. BNP is noted at 3780. Cardiology has been consulted. 5. Paraplegia with multiple sacral and pressure ulcers. Wound Care has been consulted for daily wound care. 6. History of anxiety. We will continue with Klonopin as needed. 7. History of deep venous thrombosis, status post IVC filter [address] Nicholson on the case. 8. 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 Dr. Vasquez has evaluated the patient and images, and states no further surgical intervention needed, as the patient is asymptomatic and not likely volvulus. 9. Deep vein thrombosis prophylaxis. Continue heparin subcutaneous. 10. Hypoxia, likely due to fluid overload. We will continue with IV Lasix and continue to wean off oxygen. PLAN: To continue with aggressive diuresis and await on echo results. Dictated by Dannielle Santiago, JAREK Chrissy Downey MD MY/MODL /[id number] Seen and examined on 11/24/2019, updated at the bedside. Agree with the findings and plan as documented by JAREK Santiago. KAMILLED
[2019-11-24 15:43] VITALS: BP 129/60
[2019-11-24 20:00] VITALS: BP 119/55
[2019-11-24 21:18] VITALS: BP 119/55
[2019-11-25] VITALS (7 sets, daily range): BP systolic 98–146; BP diastolic 46–63
--- NOTE | 2019-11-25 01:24 | Progress Note ---
DATE: 11/24/2019 Cardiology Progress Note SUBJECTIVE: Edema is slightly better today. Denies any chest pain. Mild shortness of breath. OBJECTIVE: VITAL SIGNS: Temperature 99.7, heart rate 99, blood pressure 129/60, respiratory rate 18, O2 saturation 97%. GENERAL: In no acute distress. Chronically ill-appearing and cachectic. NECK: JVD in the lower 3rd of the neck, otherwise supple. CHEST: With decreased breath sounds in bilateral bases. CARDIOVASCULAR: Regular rate and rhythm with frequent extra beats/compensatory pauses. Normal S1 and S2. Systolic ejection murmur. No S3, no S4. ABDOMEN: Soft. EXTREMITIES: With 1+ edema to lower extremities, pitting edema to abdominopelvic area. CARDIOVASCULAR MEDICATIONS: Reviewed. KCl 20 mEq daily, furosemide 40 mg IV b.i.d., spironolactone 25 mg daily. STUDIES: Reviewed. Potassium 3, creatinine 0.5, hemoglobin 9.6, platelets 251. ASSESSMENT AND PLAN: A 79-year-old man presents with recurrent urinary tract infections, chronic debility, deconditioning, confusion/delirium, anemia, electrolyte derangements, acute systolic heart failure with LVEF 30% to 35%, aortic insufficiency, history of thoracic aneurysm repair at [facility] with dilated sinus of Valsalva on echocardiogram visualized today. RECOMMENDATIONS: 1. Discussed at length with the patient. The patient's and family updated on findings of the echocardiogram and current plan of care. We will initiate carvedilol 3.125 mg every 12 hours. Continue IV diuretics. Consider rehab while in-house. Continue antibiotics at the discretion of Primary Service. 2. Offered coronary angiography and possible intervention for further assessment of his new diagnosis systolic heart failure. At this point in time, the patient and family seem to want to hold off on procedure and allow further rehabilitation and recovery given the patient's debilitated condition. Outpatient followup strongly encouraged with Cardiology upon discharge. For now continue volume optimization and assess response to beta sera therapy. 3. Outpatient followup with Vascular Surgery for a dilated ascending aorta and aortic insufficiency is advised as this will need to be compared with previous outpatient studies to further delineate the rate of progression of disease and to provide further recommendations for care of aortic pathology. Jeremías Burleson MD AFV/MODL /[id number]
[2019-11-25] MEDS: MEROPENEM 500MG/ NS 50ML 50 ML IV SCH ×5 (05:29→23:50)
[2019-11-25] MEDS: ZINC SULFATE 220 MG CAP PO SCH (05:29)
[2019-11-25 05:48] LABS: ANION GAP 10.7 mmol/L (8-16); BLOOD UREA NITROGEN 17 mg/dL (7-26); BUN/CREATININE RATIO 30 (6-25); CALCIUM 8.6 mg/dL (8.4-10.2); CARBON DIOXIDE 40 mmol/L (22-29); CHLORIDE 94 mmol/L (98-107); CREATININE, SERUM 0.56 mg/dL (0.72-1.25); EST GLOMERULAR FILTRATION RATE > 60 ML/MIN (60-); GLUCOSE 103 mg/dL (74-118); POTASSIUM 3.7 mmol/L (3.5-5.1); SODIUM 141 mmol/L (136-145)
[2019-11-25] MEDS ORDERED: AMIKACIN SULFATE 250 MG/ML 2ML VIAL IV ONE (09:15)
[2019-11-25] MEDS: SPIRONOLACTONE 25 MG TAB PO SCH (09:24)
[2019-11-25] MEDS: FUROSEMIDE INJ 10 MG/ML 4 ML VIAL IV SCH ×2 (09:24→17:26)
[2019-11-25] MEDS: HEPARIN SOD (PORCINE) 5,000 UNIT/ML VIAL SC SCH ×2 (09:24→21:51)
[2019-11-25] MEDS: CARVEDILOL 3.125 MG TAB PO SCH ×2 (09:25→17:26)
[2019-11-25] MEDS: POTASSIUM CHLORIDE 10MEQ EA PO SCH (09:25)
[2019-11-25] MEDS: GABAPENTIN 300 MG CAP PO SCH ×2 (09:25→20:37)
[2019-11-25] MEDS ORDERED: SODIUM CHLORIDE 0.9% IV ONE (10:30)
[2019-11-25] MEDS ORDERED: AMIKACIN SULFATE IV ONE (10:30)
--- NOTE | 2019-11-25 18:25 | Progress Note ---
DATE: 11/25/2019 Cardiology Progress Note SUBJECTIVE: Denies chest pain. Shortness of breath is improving. Edema is improving. No other complaints. OBJECTIVE: VITAL SIGNS: Reviewed and stable. GENERAL: No acute distress, alert. NECK: No JVD. CHEST: Clear to auscultation. CARDIOVASCULAR: Regular rate and rhythm. Normal S1 and S2. ABDOMEN: Soft. Bowel sounds positive. EXTREMITIES: With trace edema. CARDIOVASCULAR MEDICATIONS: Reviewed. STUDIES: Reviewed. ASSESSMENT AND PLAN: 1. Acute systolic heart failure, new diagnosis. 2. Ascending aortic aneurysm with history of aortic aneurysm repair. 3. Aortic insufficiency, moderate. 4. Significant deconditioning, debility. 5. Recurrent urinary tract infections. 6. 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 7. Quadriparesis. RECOMMENDATIONS: 1. Continue current cardiovascular medications. 2. Offered coronary angiography and possible intervention during this hospital stay to the patient and family members. However, given the patient's deconditioned state, the patient and family would prefer to follow up with the outpatient pleating machine operator to schedule this at a later date once the patient has recovered from his hospital related issues, particularly with a urinary tract infection when he came in to the hospital for treatment as well as to continue outpatient rehab. Continue to optimize medications as tolerated. Jeremías Burleson MD AFKatlyn/PIERREL /[id number]
--- NOTE | 2019-11-25 18:46 | Progress Note ---
DATE: 11/25/2019 CONSULTANTS: 1. Dr. Avlarez with Infectious Disease. 2. Dr. Nicholson with Cardiology. 3. Dr. Vasquez with Surgery. CHIEF COMPLAINT: Chills, hypothermia due to complicated UTI. SUBJECTIVE: The patient still with shortness of breath. He denies any chest pain, on 2 L O2 via nasal cannula. Still with significant swelling in the perineum and legs. Bilateral lower extremity edema improved. PHYSICAL EXAMINATION: VITAL SIGNS: Temperature 97.9, pulse is 70, respirations 18, blood pressure 120/58, and pulse ox is 98% on 2 L of oxygen. GENERAL: Fatigue and generalized weakness. HEENT: Normocephalic and atraumatic. NECK: Supple. LUNGS: Decreased breath sounds. CARDIOVASCULAR: Regular rate and rhythm. NEUROLOGIC: Alert, awake, and oriented x3. MUSCULOSKELETAL: Paraplegic. Normal capillary refill. +1 edema in the lower extremities. SKIN: Dry with stage IV pressure ulcer in the sacrum. PSYCH: Calm. : Suprapubic catheter. LABORATORY DATA: Sodium 141, potassium 3.7, BUN is 17, creatinine 0.56, estimated GFR greater than 60, and calcium 8.6. IMPRESSION: 1. Sepsis due to complicated urinary tract infection. We will continue with Merrem and meclizine for urine culture positive with Escherichia coli with extended- spectrum beta-lactamases and Pseudomonas aeruginosa. ID on the case. 2. Hyponatremia, now resolved. 3. Hypokalemia, replaced. 4. Dyspnea due to some pleural effusion. We will continue with IV Lasix. Echo shows 30% to 35% EF. Cardiology has been consulted. Beta-sera started. 5. Paraplegia with multiple sacral and pressure ulcers. We will continue with daily wound care. 6. History of anxiety. Continue Klonopin as needed. 7. History of deep venous thrombosis, status post IVC filter [address] Nicholson on the case. 8. 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 Dr. Vasquez has been consulted. No further surgical intervention needed. 9. Acute systolic congestive heart failure exacerbation. Continue with IV Lasix, aggressive diuretics. Cardiology on the case. 10. Deep vein thrombosis prophylaxis. Continue heparin subcutaneous. PLAN: To continue with aggressive diuretics. Echo showed systolic CHF. The patient and do not want to proceed with heart catheterization. We will follow the patient for further workup. Dictated by Dannielle Santiago, JAREK Chrissy Downey MD MY/MODL /[id number] Seen and examined on 11/25/2019, updated at the bedside. Agree with the findings and plan as documented by JAREK Santiago. KAMILLED
--- NOTE | 2019-11-25 19:10 | NUR ---
Report given to oncoming nurse of patient's status. No s/s of acute distress noted. at bedside
[2019-11-26] VITALS (8 sets, daily range): BP systolic 103–126; BP diastolic 51–62
[2019-11-26] MEDS: ZINC SULFATE 220 MG CAP PO SCH (05:56)
[2019-11-26] MEDS: MEROPENEM 500MG/ NS 50ML 50 ML IV SCH ×3 (05:56→16:57)
[2019-11-26] MEDS: POTASSIUM CHLORIDE 10MEQ EA PO SCH (09:34)
[2019-11-26] MEDS: GABAPENTIN 300 MG CAP PO SCH ×2 (09:34→21:31)
[2019-11-26] MEDS: SPIRONOLACTONE 25 MG TAB PO SCH (09:34)
[2019-11-26] MEDS: FUROSEMIDE INJ 10 MG/ML 4 ML VIAL IV SCH ×2 (09:34→16:59)
[2019-11-26] MEDS: CARVEDILOL 3.125 MG TAB PO SCH ×2 (09:40→16:59)
[2019-11-26] MEDS: HEPARIN SOD (PORCINE) 5,000 UNIT/ML VIAL SC SCH ×2 (09:41→21:30)
[2019-11-26] MEDS ORDERED: AMIKACIN SULFATE 250 MG/ML 2ML VIAL IV ONE (09:45)
[2019-11-26] MEDS ORDERED: AMIKACIN SULFATE IV ONE (10:00)
[2019-11-26] MEDS ORDERED: SODIUM CHLORIDE 0.9% IV ONE (10:00)
[2019-11-26] MEDS ORDERED: POTASSIUM CHLORIDE 20 MEQ TAB CR PO NR (12:45)
--- NOTE | 2019-11-26 13:44 | Progress Note ---
DATE: 11/26/2019 Internal Medicine Progress Note This is coverage for Dr. Erwin Downey. SUBJECTIVE: Mr. Brambila was seen and examined at bedside. The patient is eating well. He was on room air FiO2. 98% oxygen saturation noted. The patient was in the presence of his sister and brother. Yesterday, they declined any invasive cardiac evaluation of his heart condition. REVIEW OF SYSTEMS: No headaches, no bleeding. OBJECTIVE: VITAL SIGNS: Currently afebrile, vital signs noted and reviewed per the chart record. In's and out's were document as 1.0 L in, 2.2 L out. He is having bowel movements. GENERAL: Weak in bed. HEENT: Normocephalic, atraumatic. NECK: Supple. Throat midline. LUNGS: Bilateral air entry, decreased effort, decreased breath sounds at bases. CARDIOVASCULAR: S1, S2. No murmurs, rubs, or gallops. ABDOMEN: Soft, nontender. EXTREMITIES: No clubbing. No cyanosis. There is trace edema, emaciated legs. INTEGUMENT: No rash. There are a few stasis changes to legs. LABORATORY DATA: 3.7 potassium, 17 BUN, creatinine 0.6. IMPRESSION AND PLAN: 1. Sepsis due to complicated urinary tract infection. Extended-spectrum beta-lactamases, Escherichia coli and Pseudomonas. 2. Resolved hyponatremia. 3. Resolved hypokalemia. 4. New onset congestive heart failure, acute systolic, 30%-35% left ventricular ejection fraction. 5. Paraplegia, secondary to sacral pressure ulcers present on admission. 6. History of anxiety. 7. 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 8. Debility. At this time continue antibiotics as per Infectious Disease expert. Steady diuretics. We will obtain a chest x-ray tomorrow. Last chest x-ray, still had some left pleural effusion, much greater than right effusion. Continue to optimize nutrition. Hopeful for home with home health on Thursday. MD VIJI Ramirez/SHIVAM /[id number]
--- NOTE | 2019-11-26 14:12 | NUR ---
ATTEMPTED TWICE TODAY AND PT REFUSING BOTH TIMES, F/U ON THURSDAY Addendum: 11/26/19 at 1413 by Carlitos Dean PTA Amended: Links added.
--- NOTE | 2019-11-26 15:15 | NUR ---
dressing changed to pts sacral, and pt repositioned at this time , pt has family member at bedside
--- NOTE | 2019-11-26 19:22 | NUR ---
rounding report given to oncoming nurse, pt stable at this time
--- NOTE | 2019-11-26 19:26 | NUR ---
Patient received sitting up in bed. AAO x 2. Patient had no complaints of pain. Respirations even and non-labored on 2 L NC. Suprapubic catheter draining light deep urine. Fall precautions implemented. Patient instructed to call for assistance when needed. Call light within reach.
--- NOTE | 2019-11-26 21:45 | NUR ---
Patient inadvertently pulled out IV on right hand. New IV inserted in left wrist 20G. Patient tolerated well.
--- NOTE | 2019-11-26 23:35 | NUR ---
Patient appears confused and asking if family members were in the bathroom. Patient re-oriented to time and surroundings and told family members had gone back home. Patient re-positioned and assisted to a more comfortable position. Will continue to monitor.
--- NOTE | 2019-11-26 23:45 | Progress Note ---
DATE: Cardiology Progress Note SUBJECTIVE: No complaints. Denies chest pain or shortness of breath. Edema improving. OBJECTIVE: VITAL SIGNS: Temperature 97.1, heart rate 79, respiratory rate 16, blood pressure 103/62, O2 saturation 96%. GENERAL: No acute distress. Alert. NECK: No JVD. CHEST: Clear to auscultation. Sternotomy scar. CARDIOVASCULAR: Systolic ejection murmur and a soft murmur noted. ABDOMEN: Soft. Bowel sounds positive. EXTREMITIES: Trace edema. CARDIOVASCULAR MEDICATIONS: Reviewed. Carvedilol 3.125 mg b.i.d., furosemide 40 mg b.i.d., spironolactone 25 mg daily. STUDIES: Reviewed. Potassium 3.7, bicarbonate 40, creatinine 0.56. White blood cells 3.4, hemoglobin 9.6, platelets 251. AST 44, ALT 53. ASSESSMENT: A 79-year-old man presents with: 1. Acute systolic heart failure. 2. Recurrent urinary tract infection. 3. Severe debility and deconditioning. 4. Encephalopathy. 5. History of aortic aneurysm repair with dilated ascending aorta on echocardiogram on this admission. 6. Moderate aortic insufficiency. RECOMMENDATIONS: 1. 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 This is per the patient and family's preference. 2. Further evaluation of ascending aortic dilatation advised and encouraged to follow up with outpatient vascular surgeon on this. 3. Continue rest of cardiovascular medications. The patient seems euvolemic on exam today. Consider transition to p.o. diuretics starting tomorrow. Jeremías Burleson MD AFV/MODL /[id number]
[2019-11-27] VITALS (9 sets, daily range): BP systolic 108–131; BP diastolic 56–67
[2019-11-27] MEDS: MEROPENEM 500MG/ NS 50ML 50 ML IV SCH ×4 (00:28→17:39)
--- NOTE | 2019-11-27 05:06 | NUR ---
Wound treatment performed per MD's orders. Patient tolerated well.
[2019-11-27] MEDS: ZINC SULFATE 220 MG CAP PO SCH (06:14)
[2019-11-27 06:35] LABS: ANION GAP 10.3 mmol/L (8-16); BLOOD UREA NITROGEN 22 mg/dL (7-26); BUN/CREATININE RATIO 35 (6-25); CALCIUM 8.8 mg/dL (8.4-10.2); CHLORIDE 90 mmol/L (98-107); CREATININE, SERUM 0.62 mg/dL (0.72-1.25); EST GLOMERULAR FILTRATION RATE > 60 ML/MIN (60-); GLUCOSE 99 mg/dL (74-118); MAGNESIUM 1.9 MG/DL (1.3-2.1); POTASSIUM 3.3 mmol/L (3.5-5.1); SODIUM 141 mmol/L (136-145)
[2019-11-27 06:50] LABS: CARBON DIOXIDE 44 mmol/L (22-29)
--- NOTE | 2019-11-27 06:52 | NUR ---
Dr. Nickie Downey notified of critical carbon dioxide (CO2) level of 44.
--- NOTE | 2019-11-27 07:00 | NUR ---
Walking rounds and bedside report done. Patient resting comfortably.
--- NOTE | 2019-11-27 07:40 | NUR ---
DR. KEANE WAS CALLED DR. BARBOSA ARC CUTTER PLASMA ARC. NO ORDERS GIVEN, PT ON LASIX.
--- NOTE | 2019-11-27 08:14 | Diagnostic Imaging Report ---
EXAMINATION: CHEST SINGLE (PORTABLE) INDICATION: ^chf ^[id number] ^[id number] COMPARISON: 11/20/2019 FINDINGS: AP view TUBES and LINES: None. LUNGS: Lungs are well inflated. Bibasilar atelectasis. Improved bilateral interstitial edema. No new consolidations. PLEURA: Small left pleural effusion, improved. Trace right pleural effusion, improved. No pneumothorax. HEART AND MEDIASTINUM: Mild enlargement of the cardiac silhouette, unchanged. Tortuous thoracic aorta with suspected aneurysm of the ascending thoracic segment and aortic arch. BONES AND SOFT TISSUES: No acute osseous lesion. Soft tissues are unremarkable. UPPER ABDOMEN: No free air under the diaphragm. IMPRESSION: Interval improvement in the bilateral pleural effusions and bilateral interstitial edema. Signed by: Dr. Althea Morillo M.D. on 11/27/2019 8:12 AM
[2019-11-27] MEDS: GABAPENTIN 300 MG CAP PO SCH ×2 (09:46→21:18)
[2019-11-27] MEDS: POTASSIUM CHLORIDE 10MEQ EA PO SCH (09:46)
[2019-11-27] MEDS: FUROSEMIDE INJ 10 MG/ML 4 ML VIAL IV SCH (09:46)
[2019-11-27] MEDS: CARVEDILOL 3.125 MG TAB PO SCH ×2 (09:46→17:38)
[2019-11-27] MEDS: SPIRONOLACTONE 25 MG TAB PO SCH (09:46)
[2019-11-27] MEDS: HEPARIN SOD (PORCINE) 5,000 UNIT/ML VIAL SC SCH (09:48)
[2019-11-27] MEDS ORDERED: POTASSIUM CHLORIDE 20 MEQ TAB CR PO NR (13:31)
--- NOTE | 2019-11-27 13:31 | NUR ---
DATE: 11/27/2019 Internal Medicine Progress Note coverage for Dr. Erwin Downey. SUBJECTIVE: ate > 50% today some agitation intermittent pain at baseline weak in bed CXR is with less fluid, better REVIEW OF SYSTEMS: No headaches, no bleeding. OBJECTIVE: VITAL SIGNS: vital signs noted and reviewed per the chart record. GENERAL: Weak in bed. NAD, talks upon prodding HEENT: Normocephalic, atraumatic. NECK: Supple. Throat midline. LUNGS: Bilateral air entry, decreased effort, decreased breath sounds at bases. CARDIOVASCULAR: S1, S2. No murmurs, rubs, or gallops. ABDOMEN: Soft, nontender. EXTREMITIES: No clubbing. No cyanosis. trace edema, emaciated legs. INTEGUMENT: No rash. LABORATORY DATA: k 3.3, cr 0.62, hco3 44 IMPRESSION AND PLAN: 1. Sepsis due to complicated urinary tract infection. Extended-spectrum beta-lactamase Escherichia coli and Pseudomonas. 2. Resolved hyponatremia. 3. Resolved hypokalemia. 4. New onset congestive heart failure, acute systolic, 30%-35% left ventricular ejection fraction. 5. Paraplegia, secondary to sacral pressure ulcers present on admission. 6. History of anxiety. 7. 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 8. Debility. Intermittent CXR until resolution of processes Continue antibiotics as per Infectious Disease expert. Steady diuretics per cardiology Replete k Continue to optimize nutrition. Hopeful for home with home health on Thursday.
[2019-11-27] MEDS ORDERED: COREG3.125 MG PO (14:00)
[2019-11-27] MEDS ORDERED: LASIX40 MG PO (14:00)
--- NOTE | 2019-11-27 14:52 | NUR ---
Nutrition Intervention Note RD Recommendation(s) for Physician: -Continue regular diet with Ensure Enlive and Edgar Plan of Care: RD following, monitoring for tolerance and adequacy Nutrition reason for involvement: f/u RD Assessment: 11/27/2019: Pt is reporting an improved Po intake. Pt denies any difficulty chewing or swallowing. Some gaging, but nausea is well controlled. 10/23: Follow up: Pt was seen resting in bed, finishing his breakfast. His was at his bedside. The pt reported that his appetite is so, so. Pt has been completing 75-100% of his meals, the pt also has 0% recorded for some meals as well. The pt did have Ensure next to his bed, encouraged pt to consume this as tolerated. The reported she would like the pt to have a consistent breakfast everyday, will personally place order for the next couple of days within . Also encouraged to call kitchen to ensure the pt is consuming what he likes. Echo is pending. Will continue to monitor. (10/18/2020) Pt is a 79 year old male admitted with altered mental status and UTI. Pt was sleeping at time of visit. Spoke to family members at bedside who reported pt had been eating <50% of meals for 1 week. Family member reported pt had lost weight, but was unsure of the amount or timeframe. Per weight history, pt had weighed 137 lbs in July 2019. Pt currently has a weight of 140 lbs in chart. No N/V or chewing/swallowing issues. Recommend Ensure Enlive for added nutrition and Edgar BID for wound healing. Will continue to monitor. Principal Problems/Diagnoses: altered mental status and UTI PMH: aortic aneurysm with bilateral lower extremity paralysis, anxiety, multiple sacral ulcers I/O: 610/2150 GI: LBM: 11/21, Abd: soft, round Skin: stage 2 left hip pressure ulcer and stage 3 sacral pressure ulcer Labs: 11/23: K 3.2, CO2 30 (11/18/2019) Na 133, K 3.2, Ca 8.0 Meds: meropenem, zofran, NaCl, KCL given, gabapentin, lasix Ht: 68 inches Wt: 139.50 lbs BMI: 21.3 kg/m2 IBW: 154 lbs Malnutrition Evaluation (11/18/2019) The patient does not meet criteria for a specified degree of malnutrition at this time. Will re-evaluate at follow-up as appropriate. Energy intake: <50% of estimated energy requirements for >5 days Weight loss: No weight loss evident since July 2019 per weight history Fat loss: unable to evaluate Muscle loss: unable to evaluate Supporting Evidence: Fluid accumulation: trace edema of the lower extremities per MD note Functional Status: unable to evaluate Nutrition Prescription (Diet Order): Regular diet Estimated Nutritional Needs: 5469-2352 calories/day (25-35 kcal/kg CBW 76-95 g protein/day (1.2-1.5 g pro/kg CBW) Diet Adequacy: Not meeting calorie needs, Not meeting protein needs Tolerance: Tolerating PO Diet Education Needs Assessment: Diet education not indicated; patient on regular diet. Nutrition Care Level: Low Nutrition Diagnosis: Inadequate energy intake related to decreased ability to consume sufficient energy secondary to decreased appetite as evidenced by pt eating <50% of meals for the past week per family members. Goal: Patient will meet 75-100% of estimated needs by follow up Progress: progressing Interventions: -General healthful diet, Commercial beverage Monitoring/Evaluation: -Total energy intake, Total protein intake, Liquid supplement, Weight change Femi Lundberg RD, LD, CNSC
--- NOTE | 2019-11-27 19:24 | NUR ---
WALKING ROUNDS COMPLETE. , PT STABLE AT THIS TIME.
--- NOTE | 2019-11-27 21:13 | Progress Note ---
DATE: 11/27/2019 Cardiology Progress Note SUBJECTIVE: No complaints today. Denies any shortness of breath or chest pain. OBJECTIVE: VITAL SIGNS: Temperature 97.9, heart rate 118, respiratory rate 18, blood pressure 118/58, O2 saturation 92% on nasal cannula. GENERAL: No acute distress. Alert. NECK: No JVD. CHEST: Clear to auscultation. CARDIOVASCULAR: Regular rate and rhythm. Normal S1 and S2. Systolic ejection murmur. No S3. No S4. ABDOMEN: Soft. Bowel sounds positive. EXTREMITIES: No edema. Warm distal extremities. CARDIOVASCULAR MEDICATIONS: Reviewed. Carvedilol 3.125 mg b.i.d., spironolactone 25 mg daily, furosemide 40 mg IV b.i.d. STUDIES: Reviewed for today. Sodium 141, potassium 3.3, chloride 90, bicarbonate 44, BUN 22, creatinine 0.6, glucose 99, magnesium 1.9, and calcium 8.8. Telemetry, in sinus rhythm. Chest x-ray, with interval improvement in the bilateral pleural effusions and bilateral interstitial edema. ASSESSMENT AND PLAN: 1. Acute on chronic systolic heart failure, now achieving euvolemic state. 2. Urinary tract infection, recurrent. 3. Severe debility and deconditioning. 4. Encephalopathy. 5. History of aortic aneurysm repair with dilated ascending aorta on echocardiogram on this admission. 6. Moderate aortic insufficiency. RECOMMEND: 1. Transition to furosemide 20 mg p.o. daily for baseline maintenance. 2. Initiate low-dose losartan and monitor blood pressure reads. Continue carvedilol. If tolerating well over the ensuing several weeks, can transition to Entresto as outpatient, and beta-sera to be continued. 3. Coronary ischemia workup given new diagnosis of systolic heart failure has been advised. The patient and family prefers to do this as outpatient with tube lancer. 4. Aortic aneurysm. Followup for dilated sinus of Valsalva and ascending aorta on echocardiogram at this admission is encouraged. The patient has moderate aortic insufficiency. Close followup with Vascular Surgery advised. 5. Antibiotics per Primary Service. Jeremías Burleson MD AFV/MODL /[id number]
--- NOTE | 2019-11-27 22:15 | NUR ---
Patient's IV on left arm infiltrated. Old IV removed with tip intact. New IV inserted in left forearm 20 G. Patient tolerated well.
--- NOTE | 2019-11-27 23:26 | NUR ---
Patient received sitting in bed. at bedside. No acute distress noted. Rinaldi catheter and Telemetry box in place. Call light within reach.
[2019-11-28] VITALS (8 sets, daily range): BP systolic 121–151; BP diastolic 55–72
[2019-11-28] MEDS: MEROPENEM 500MG/ NS 50ML 50 ML IV SCH ×2 (00:15→06:10)
--- NOTE | 2019-11-28 04:24 | NUR ---
Wound treatment performed per MD's orders. Patient tolerated well.
[2019-11-28] MEDS: ZINC SULFATE 220 MG CAP PO SCH (06:10)
--- NOTE | 2019-11-28 07:00 | NUR ---
BSSR done. Patient resting comfortably.
--- NOTE | 2019-11-28 07:10 | NUR ---
RCD PT AT BED PT IS ALERT AND ORIENTED PT RESTING ON BED NO SIGNS OF ANY DISTRESS NOTE IV PATENT BED LOW AND LOCKED CALL LIGHT IN REACH
[2019-11-28] MEDS: POTASSIUM CHLORIDE 10MEQ EA PO SCH (09:00)
[2019-11-28] MEDS: FUROSEMIDE 20 MG TAB PO SCH (09:00)
[2019-11-28] MEDS: CARVEDILOL 3.125 MG TAB PO SCH ×2 (09:00→16:51)
[2019-11-28] MEDS: LOSARTAN POTASSIUM 25 MG TAB PO SCH (09:00)
[2019-11-28] MEDS: SPIRONOLACTONE 25 MG TAB PO SCH (09:00)
[2019-11-28] MEDS: GABAPENTIN 300 MG CAP PO SCH (09:00)
--- NOTE | 2019-11-28 11:13 | Progress Note ---
DATE: 11/28/2019 Cardiology Progress Note SUBJECTIVE: Denies any shortness of breath. Has aches when moving around in bed. These are per his report and once report chronic issues. OBJECTIVE: VITAL SIGNS: Temperature 97.2, heart rate 92, blood pressure 123/57, respiratory rate 18, and O2 saturation 96%. BMI 21. GENERAL: No acute distress. Alert. NECK: No JVD. CHEST: Clear to auscultation. CARDIOVASCULAR: Regular rate and rhythm. Normal S1 and S2. Systolic ejection murmur. ABDOMEN: Soft. Bowel sounds positive. EXTREMITIES: No edema. Warm distal extremities. CARDIOVASCULAR MEDICATIONS: Have been reviewed. Losartan 12.5 mg daily, carvedilol 3.125 mg every 12 hours, furosemide 20 mg daily, and KCl 20 mEq daily. STUDIES: Reviewed. Sodium 141, potassium 3.3, chloride 90, bicarbonate 44, BUN 22, creatinine 0.8, and glucose 99. White blood cells 3.4, hemoglobin 9.6, and platelets 251. PT 13.9 and PTT 38. AST 44 and ALT 53. ASSESSMENT AND PLAN: 1. A 79-year-old man with severe debility, deconditioning, history of aortic aneurysm repair with dilated ascending aorta at the sinus of Valsalva, moderate aortic insufficiency, severe systolic heart failure, acute, new diagnosis. 2. Anemia. 3. Recurrent urinary tract infections. RECOMMEND: 1. Per the patient and family request, they would like to consider palliative care. We will defer this decision to primary service. The patient is undergoing wound care. 2. Continue current cardiovascular medication. 3. Defer further ischemic workup to outpatient as well as ascending aortic aneurysm followup to outpatient Vascular Surgery per request from family. Jeremías Burleson MD AFV/MODL /[id number]
--- NOTE | 2019-11-28 12:00 | NUR ---
DRESSING CHANGED ON THE LEFT AND RIGHT BUTTOCKS
--- NOTE | 2019-11-28 14:00 | NUR ---
HOME HEALTH NURSE CALL ME AND ASKED THE PT IS DISCHARGE TODAY OR TOMORROW PAGED DR KEANE AND LEFT THE MESSAGE
--- NOTE | 2019-11-28 14:10 | NUR ---
DR LINDSEY RETURNED THE CALL HE SAID HE COMING TO SEE THE PT
--- NOTE | 2019-11-28 14:21 | NUR ---
A/C TO SUPERVISOR TELEPHONE INFORMATION HOME HEALTH IS READY FOR THE PATIENT
--- NOTE | 2019-11-28 14:24 | NUR ---
ORDERS TO RESUME HOME [facility] FOR WOUND CARE REC'D PT WAS PREVIOUSLY ON SERVICE WITH [facility] AND WISHES TO RESUME SERVICES WITH THEM CHOICE LETTER SIGNED BY PT; COPY TO PT AND ONE IN CHART FAXED CLINICALS TO [phone]; CONFIRMATION REC'D PH: [phone] NURSE PATEL AWARE HOME HEALTH IS ARRANGED AND PT OK TO DC WHEN PHYSICIAN READY
[2019-11-28] MEDS ORDERED: K DUR10 MEQ PO (18:34)
[2019-11-28] MEDS ORDERED: LOSARTAN POTASS25 MG PO (18:34)
[2019-11-28] MEDS ORDERED: ASPIRIN81 MG PO (18:39)
--- NOTE | 2019-11-28 18:40 | NUR ---
PT RESTING ON BED BED SIDE REPORT GIVEN TO ONCOMING NURSE
--- NOTE | 2019-11-28 18:50 | NUR ---
DR LINDSEY CAME AND DISCHARGE THE PT FAMILY IS NOT WILLING TO GO TODAY BECAUSE THE FAMILY NEED TO BRING THE WHEEL CHAIR AND OTHER STUFFS FORM HOME SINCE THE PT IS PARAPLEGIC NOTIFIED THE SENIOR POWER PLANT OPERATOR SHE SAID OK DISCHARGE THE PT IN MORNING NOTIFIED THE FAMILY
--- NOTE | 2019-11-28 19:10 | NUR ---
Patient received sitting up in bed. AAO x 3. at bedside. No acute distress noted. Call light within reach.
--- NOTE | 2019-11-28 20:05 | NUR ---
Wound treatment performed per MD's orders. Patient tolerated well.
[2019-11-29] VITALS: BP 146/65
--- NOTE | 2019-11-29 01:48 | NUR ---
DATE: 11/28/2019 Internal Medicine Progress Note coverage for Dr. Erwin Downey. SUBJECTIVE: ate some intermittent confusion still discussed with , home arrangements being made appreciate caser up help REVIEW OF SYSTEMS: No headaches, no bleeding. OBJECTIVE: VITAL SIGNS: vital signs noted and reviewed per the chart record. GENERAL: Weak in bed. NAD, talks HEENT: Normocephalic, atraumatic. NECK: Supple. Throat midline. LUNGS: Bilateral air entry, decreased effort, decreased breath sounds at bases. CARDIOVASCULAR: S1, S2. No murmurs, rubs, or gallops. ABDOMEN: Soft, nontender. EXTREMITIES: No clubbing. No cyanosis. trace edema, emaciated legs. INTEGUMENT: No rash. LABORATORY DATA: no new updates IMPRESSION AND PLAN: 1. Sepsis due to complicated urinary tract infection. Extended-spectrum beta-lactamase Escherichia coli and Pseudomonas. 2. Resolved hyponatremia. 3. Resolved hypokalemia. 4. New onset congestive heart failure, acute systolic, 30%-35% left ventricular ejection fraction. 5. Paraplegia, secondary to sacral pressure ulcers present on admission. 6. History of anxiety. 7. 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 8. Debility. Intermittent CXR until resolution of processes Continue antibiotics as per Infectious Disease expert. Steady diuretics per cardiology. adjust meds Continue to optimize nutrition. Hopeful for home with home health tomorrow
--- NOTE | 2019-11-29 03:07 | NUR ---
Patient pulled out his IV on left arm. New IV inserted in left hand 22G. Patient tolerated well.
[2019-11-29 04:00] VITALS: BP 144/62
[2019-11-29] MEDS: ZINC SULFATE 220 MG CAP PO SCH (05:50)
--- NOTE | 2019-11-29 06:54 | NUR ---
Walking rounds done. Bedside shift report given to oncoming nurse.
[2019-11-29 07:54] VITALS: BP 146/70
[2019-11-29 09:00] VITALS: BP 146/70
[2019-11-29] MEDS: POTASSIUM CHLORIDE 10MEQ EA PO SCH (09:20)
[2019-11-29] MEDS: LOSARTAN POTASSIUM 25 MG TAB PO SCH (09:20)
[2019-11-29] MEDS: CARVEDILOL 3.125 MG TAB PO SCH (09:20)
[2019-11-29] MEDS: SPIRONOLACTONE 25 MG TAB PO SCH (09:20)
[2019-11-29] MEDS: FUROSEMIDE 20 MG TAB PO SCH (09:20)
--- NOTE | 2019-11-29 09:45 | NUR ---
02 saturation level on RA is 92%
--- NOTE | 2019-11-29 10:50 | NUR ---
Discharge instructions and prescriptions given to the patient 's . She verbalized understanding. IV to the left hand was removed with tip intact.
--- NOTE | 2019-11-29 11:13 | Progress Note ---
DATE: 11/29/2019 Cardiology Progress Note SUBJECTIVE: Denies any shortness of breath. Edema improved. No new complaints. OBJECTIVE: VITAL SIGNS: Temperature 97.1, heart rate 91, blood pressure 146/70, respiratory rate 18, and O2 saturation 100% on nasal cannula. GENERAL: No acute distress. Alert. NECK: No JVD. CHEST: Clear to auscultation. CARDIOVASCULAR: Regular rate and rhythm. Normal S1 and S2. Systolic ejection murmur. ABDOMEN: Soft. Bowel sounds positive. EXTREMITIES: No edema. Warm distal extremities. CARDIOVASCULAR MEDICATIONS: Reviewed. Carvedilol 3.125 mg every 12 hours, KCl 20 mEq daily, furosemide 20 mg daily, spironolactone 25 mg daily, and losartan 12.5 mg daily. STUDIES: Reviewed. Potassium 3.3, bicarbonate 44, creatinine 0.6, and glucose 99. White blood cells 9.6 and platelets 251. 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 RECOMMEND: 1. Continue current cardiovascular medications. 2. Outpatient followup with Cardiology and Vascular Surgery within 1 to 2 weeks post discharge. MD JAVY Bacon/SHIVAM /[id number]
--- NOTE | 2019-11-29 11:37 | NUR ---
Patient left the floor via ambulance, he is discharged home.
--- NOTE | 2019-11-30 05:09 | NUR ---
discharge [id number]
--- NOTE | 2019-11-30 06:07 | Discharge Summary ---
PRIMARY CARE DOCTOR: Dr. Venkatesh Chery at [facility]. PRIMARY DIAGNOSIS: New onset congestive heart failure, acute systolic, 30% to 35% LVEF. SECONDARY DIAGNOSES: Include sepsis due to complicated urinary tract infection, ESBL, E coli, and Pseudomonas, resolved hyponatremia, resolved hypokalemia, paraplegia, chronic sacral pressure ulcers, anxiety, history of DVT status post IVC filter 11 years previous, debility, history of previous aortic aneurysmal rupture with resultant paraplegia. HOSPITAL COURSE: The patient was admitted with this fluid overload. Medications were adjusted. The patient also noted with the urinary tract infection, so this required some inpatient IV antibiotics. As the patient improved, he was allowed for outpatient care. The patient with chest x-ray that had significant improvement throughout the course of being in the hospital. The patient had left common femoral vein, chronic re-cannulized deep venous thrombosis on November 21, 2019, left venous ultrasound of the leg. The patient eventually was arranged for Home Health and allowed for discharge. DIET AT DISCHARGE: Please see his modified dysphagia diet. ACTIVITY AT DISCHARGE: Bed rest. MEDICATIONS AT DISCHARGE: Please see discharge record for details. FOLLOW UP: With Dr. Chery and other [facility] doctors include heart doctor. Greater than 30 minutes in direct care and coordination of this date. MD VIJI Ramirez/SHIVAM /[id number]
== END 2019-11-29 11:33 | disposition home health service (06) | DRG 698 ==
LOC: ER 13:36 → ERHOLD 16:21 → MED/SURG 17:57 → MED/SURG2 11-18 11:09
PROVIDERS: ADMIT Internal Medicine; ATTEND Internal Medicine
DX: T83.510A Infection and inflammatory reaction due to cystostomy catheter, initial encounter (principal); L89.153 Pressure ulcer of sacral region, stage 3; A41.9 Sepsis, unspecified organism; I50.21 Acute systolic (congestive) heart failure; E87.1 Hypo-osmolality and hyponatremia; G82.20 Paraplegia, unspecified; N30.01 Acute cystitis with hematuria; Z16.12 Extended spectrum beta lactamase (ESBL) resistance; I82.512 Chronic embolism and thrombosis of left femoral vein; L89.222 Pressure ulcer of left hip, stage 2; Z82.49 Family history of ischemic heart disease and other diseases of the circulatory system; B96.20 Unspecified Escherichia coli [E. coli] as the cause of diseases classified elsewhere; B96.5 Pseudomonas (aeruginosa) (mallei) (pseudomallei) as the cause of diseases classified elsewhere; E87.6 Hypokalemia; F41.9 Anxiety disorder, unspecified; Z91.048 Other nonmedicinal substance allergy status; Z87.891 Personal history of nicotine dependence; R00.0 Tachycardia, unspecified; E83.51 Hypocalcemia; Z95.828 Presence of other vascular implants and grafts; K63.89 Other specified diseases of intestine; R09.02 Hypoxemia; R62.7 Adult failure to thrive
CPT/HCPCS: 36415; 70450; 71045; 74018; 74176; 80048; 80053; 81001; 82550; 82553; 82948; 83605; 83735; 83880; 84484; 85007; 85025; 85027; 85610; 85730; 87040; 87086; 87186; 93005; 93306; 93971; 94640; 97139; 99284; J1644; J1940; J2405; J2543; J7030; J7040; J7050; Q9967